=== PATIENT | female | born 1950 | race African-American/Black ===

== ENCOUNTER 2017-12-01 13:48 | Inpatient (IN) | payer MEDICARE, OTHER ==
[~2017-12-01] VITALS: Ht 157.5 cm; Wt 68.0 kg
[~2017-12-01 13:48] MED LIST: ACET-868 PO; AMLO10TA4 PO; ERGO500014 PO; HYDR-4076 PO; LORA0.5T PO; MAG30ORA PO; MAGN400O6 PO; MELA3TAB PO; NA P133E RC; OLAN7.5T3 PO; VALP250C PO
--- NOTE | 2017-12-01 13:55 | NUR ---
AAOX2, SENT BY DR WILSON FROM [facility] C/O GENERALIZED WEAKNESS AND WEIGHT LOSS OF 6 LBS IN 1 WEEK. RR IS EVEN AND UNLABORED WITH NAD NOTED. SKIN IS WARM AND DRY. AWAITING MD FOR EVAL.
[2017-12-01] MEDS ORDERED: DOCU-141 PO (14:02)
[2017-12-01] MEDS ORDERED: ESCI5TAB PO (14:02)
[2017-12-01] MEDS ORDERED: BISA10SU8 RC (14:02)
[2017-12-01] MEDS ORDERED: MEMA10TA PO (14:02)
[2017-12-01] MEDS ORDERED: CARV3.122 PO (14:02)
[2017-12-01 14:29] LABS: BASOPHILS # (AUTO) 0.1 /CMM (0.0-0.2); BASOPHILS % (AUTO) 1.3 % (0.0-2.0); EOSINOPHILS % (AUTO) 7.7 % (0.0-6.0); HEMATOCRIT 37 % (33-45); HEMOGLOBIN 11.9 g/dL (11.5-14.8); LYMPHOCYTES # (AUTO) 1.7 /CMM (0.8-4.8); LYMPHOCYTES % (AUTO) 32.2 % (20.0-44.0); MEAN CORPUSCULAR HGB CONC 32 g/dl (31.0-36.0); MEAN CORPUSCULAR VOLUME 69 fL (82-100); MONOCYTES # (AUTO) 0.3 /CMM (0.1-1.30); MONOCYTES % (AUTO) 6.4 % (2.0-12.0); NEUTROPHILS # (AUTO) 2.8 /CMM (1.8-8.9); NEUTROPHILS % (AUTO) 52.4 % (43.0-81.0); PLATELET COUNT (AUTO) 367 /CMM (150-450); RED BLOOD CELL COUNT(AUTO) 5.45 MIL/uL (4.0-5.2); WHITE BLOOD COUNT (AUTO) 5.3 K/uL (4.3-11.0)
[2017-12-01] MEDS ORDERED: IV NS 0.9% 1,000 ML BAG IV ONE (14:30)
[2017-12-01] MEDS ORDERED: HYDROCODONE/APAP 5/325MG 1 EACH TABLET PO PRN (14:30)
[2017-12-01] MEDS ORDERED: ACETAMINOPHEN 325 MG TABLET PO PRN (14:30)
[2017-12-01] MEDS ORDERED: BISACODYL SUPP (10 MG) 10 MG/SUPP.RECT SUPP.RECT RC PRN (14:30)
[2017-12-01] MEDS ORDERED: ONDANSETRON HCL/PF 4 MG/2 ML VIAL IVP PRN (14:30)
[2017-12-01] MEDS ORDERED: MAGNESIUM HYDROXIDE 30 ML UDC PO PRN ×2 (14:30)
[2017-12-01] MEDS ORDERED: NA PHOS,M-B/NA PHOS,DI-BA 1 EA ENEMA RC PRN (14:30)
[2017-12-01] MEDS ORDERED: Z GUARD REMEDY 2 OZ OINT TP PRN (14:30)
[2017-12-01] MEDS ORDERED: MAG HYDROX/AL HYDROX/SIMETH 30 ML UDC PO PRN (14:30)
[2017-12-01 14:42] LABS: CALCIUM, SERUM 9.1 mg/dL (8.5-10.1); CREATININE 0.9 mg/dL (0.6-1.3); POTASSIUM 4.3 mmol/L (3.5-5.1)
[2017-12-01 14:50] LABS: BILIRUBIN,TOTAL 0.2 mg/dL (0.2-1.0); TOTAL PROTEIN, SERUM 7.4 g/dL (6.4-8.2)
--- NOTE | 2017-12-01 15:27 | NUR ---
PT NOTED PULLED OUT HER IV.
--- NOTE | 2017-12-01 15:32 | NUR ---
CALLED NURSE SUP FOR TELE BED
--- NOTE | 2017-12-01 16:53 | NUR ---
RECEIVED REPORT FOR PT. ROSCOE ESPAÑA VIA PHONE. PT. IS GOING TO ROOM 325 BED 2.
--- NOTE | 2017-12-01 16:53 | NUR ---
REPORT GIVEN TO GRAHAM CHEN FOR TELE 325.
[2017-12-01] MEDS ORDERED: OLANZAPINE 5 MG TABLET ONE (17:00)
[2017-12-01] MEDS ORDERED: DOCUSATE SODIUM 100 MG CAPSULE PO SCH (17:00)
[2017-12-01] MEDS ORDERED: OLANZAPINE 5 MG/TAB.RAPDIS SL ONE (17:00)
--- NOTE | 2017-12-01 18:24 | NUR ---
PER RADIOLOGY THEY ARE UNABLE TO DO CT SCAN. AWARE.
--- NOTE | 2017-12-01 18:49 | NUR ---
REVIT DRAFTER RECEIVED PT. IN ROOM 325 BED 2. PT. WAS BROUGHT WITH BILATERAL SOFT WRIST RESTRAINTS DUE TO PT. PULLING OUT LINES, AND IV. PT. IS A&OX1, CONFUSED, DISORIENTED, CAN FOLLOW INSTRUCTIONS. BREATHING IS UNLABORED, AND EVEN ON ROOM AIR SPO2 AT 97%. PT. HAS AN IV ON LEFT HAND. PT. IS WITH A 1:1 SITTER. BED IS IN LOWEST, AND LOCKED POSITION. PT. DENIES PAIN. ALL NEEDS MET. WILL CONTINUE TO ASSESS AND MONITOR.
[2017-12-01] MEDS: DOCUSATE SODIUM 100 MG CAPSULE PO SCH (19:45)
[2017-12-01] MEDS: LORAZEPAM 0.5 MG TABLET PO SCH (19:45)
[2017-12-01] MEDS: MEMANTINE HCL 5 MG TABLET PO SCH (19:46)
[2017-12-01] MEDS: CARVEDILOL 3.125 MG TABLET PO SCH (19:46)
--- NOTE | 2017-12-01 19:48 | NUR ---
RN CLOSING NOTES 1:1 SITTER AT BEDSIDE. PT. IS IN BED A&OX1, CONFUSED, PT. WAS REORIENTED. BREATHING IS UNLABORED, AND EVEN ON ROOM AIR. PT. DENIES PAIN. NO S/S OF ACUTE DISTRESS. PT. HAS BILATERAL SOFT WRIST RESTRAINTS DUE TO PT. RESTLESS AND IS PULLING OUT HER IV. PT. HAS A LEFT HAND IV ACCESS. BED IS IN LOWEST, AND LOCKED POSITION. 2 SIDE RAILS UP. CALL LIGHT WITHIN REACH. WILL ENDORSE REPORT TO RN.
[2017-12-01 20:00] VITALS: BP 149/87
--- NOTE | 2017-12-02 06:47 | NUR ---
MS RN NOTES PT AWAKE. STILL CONFUSED. NOT IN ANY DISTRESS. NO SOB NOTED. NO S/SX OF ANY PAIN OR DISCOMFORT AT THIS TIME. PT PULLED OUT IV-HL. REFUSED TO HAVE IT INSERTED AT THIS TIME. EXPLAINED TO PT IMPORTANCE OF IV-HL IN HER POC BUT PT STILL REFUSED. AM CARE DONE. MONITORED ACCORDINGLY. WITH SITTER AT BEDSIDE. CALL LIGHT WITHIN REACH. BED IN LOWEST POSITION. SR UP X 3 WITH BED ALARM ON FOR SAFETY. WILL ENDORSE TO NEXT SHIFT.
[2017-12-02 07:09] LABS: BASOPHILS % (AUTO) 0.7 % (0.0-2.0); EOSINOPHILS % (AUTO) 5.5 % (0.0-6.0); HEMATOCRIT 35 % (33-45); HEMOGLOBIN 11.1 g/dL (11.5-14.8); LYMPHOCYTES # (AUTO) 1.7 /CMM (0.8-4.8); LYMPHOCYTES % (AUTO) 37.4 % (20.0-44.0); MEAN CORPUSCULAR HGB CONC 32 g/dl (31.0-36.0); MEAN CORPUSCULAR VOLUME 71 fL (82-100); MONOCYTES # (AUTO) 0.4 /CMM (0.1-1.30); MONOCYTES % (AUTO) 9.7 % (2.0-12.0); NEUTROPHILS # (AUTO) 2.1 /CMM (1.8-8.9); NEUTROPHILS % (AUTO) 46.7 % (43.0-81.0); PLATELET COUNT (AUTO) 314 /CMM (150-450); RDW COEFFICIENT OF VARIATION 15.9 (11.5-15.0); RED BLOOD CELL COUNT(AUTO) 4.88 MIL/uL (4.0-5.2); WHITE BLOOD COUNT (AUTO) 4.5 K/uL (4.3-11.0)
[2017-12-02 07:29] LABS: CALCIUM, SERUM 8.4 mg/dL (8.5-10.1); CREATININE 0.9 mg/dL (0.6-1.3); MAGNESIUM 1.9 mg/dL (1.8-2.4); PHOSPHORUS 3.4 mg/dL (2.5-4.9); POTASSIUM 3.6 mmol/L (3.5-5.1)
--- NOTE | 2017-12-02 07:41 | NUR ---
MS RN OPENING NOTES RECEIVED PT LAYING IN BED, SLEEPING COMFORTABLY. SITTER AT BEDSIDE FOR SAFETY REASONS. RESPIRATIONS ARE EVEN AND UNLABORED, NOT IN ANY ACUTE DISTRESS NOTED. NO FACIAL GRIMACING NOTED. SAFETY MEASURES ARE IN PLACE. WILL CONTINUE TO MONITOR THROUGHOUT SHIFT.
[2017-12-02 08:00] VITALS: BP 153/81
--- NOTE | 2017-12-02 08:20 | NUR ---
MS RN NOTES PT SEEN AND EXAMINED BY DR. WILSON AND MADE AWARE OF UNSUCCESSFUL IV INSERTION D/T PT CONSISTENTLY TRYING TO PULL OUT IV. WILL ENCOURAGE FLUIDS TOLERATED.
[2017-12-02 08:41] LABS: EOSINOPHILS % (MANUAL) 4 % (0-4); LYMPHOCYTES % (MANUAL) 39 % (16-48); MONOCYTES % (MANUAL) 9 % (0-11.0); NEUTROPHILS % (MANUAL) 48 (42-76)
[2017-12-02] MEDS: ESCITALOPRAM OXALATE (10 MG) 10 MG TABLET PO SCH (08:50)
[2017-12-02] MEDS: LORAZEPAM 0.5 MG TABLET PO SCH ×2 (08:50→17:19)
[2017-12-02] MEDS: MEMANTINE HCL 5 MG TABLET PO SCH ×2 (08:50→17:19)
[2017-12-02] MEDS: AMLODIPINE BESYLATE 10 MG TABLET PO SCH (08:51)
[2017-12-02] MEDS: CARVEDILOL 3.125 MG TABLET PO SCH ×2 (08:51→17:18)
--- NOTE | 2017-12-02 09:03 | NUR ---
MS RN NOTES ATTEMPTED TO INSERT IV X2. PT CANNOT KEEP STILL AND CONSISTENTLY TRIES TO GET OUT OF BED, PT IS NOT COOPERATIVE AT THIS TIME. DR. WILSON MADE AWARE OF NO IV ACCESS. PER DR. WILSON, "CONTINUE TO HAVE PT DRINK FLUIDS TOLERATED."
[2017-12-02 11:00] VITALS: BP 117/69
--- NOTE | 2017-12-02 11:30 | NUR ---
MS RN NOTES PT SEEN AND EXAMINED BY DR. POSADA.
--- NOTE | 2017-12-02 13:03 | NUR ---
MS RN NOTES ATTEMPTED TO INSERT IV, PT CONTINUES TO RANDOMLY GET OUT OF BED AND UNABLE TO KEEP ARM STEADY. WILL CONTINUE TO KEEP TRYING.
--- NOTE | 2017-12-02 13:58 | NUR ---
MS RN NOTES CALLED SON ZULLY ESPAÑA FOR CONSENT FOR EGD PT CANNOT SIGN D/T CONFUSION. RECEIVED CONSENT OVER THE PHONE WITH TWO RN WITNESSES. CONSENTS SIGNED AND PLACE IN CHART.
[2017-12-02 17:00] VITALS: BP 120/68
[2017-12-02] MEDS: DOCUSATE SODIUM 100 MG CAPSULE PO SCH (17:19)
--- NOTE | 2017-12-02 17:19 | NUR ---
MS RN NOTES TRIED TO INSERT A PERIPHERAL IV, PT PICKS AT THE IV SUPPLIES WHICH CAN CAUSE HARM TO BOTH THE PT AND NURSE. PT CONTINUES TO BE NONCOOPERATIVE. ENCOURAGED PT TO DRINK FLUIDS TOLERATED TO STAY HYDRATED. WILL CONTINUE TO MONITOR.
[2017-12-02 17:47] LABS: APPEARANCE,URINE CLEAR (CLEAR); BILIRUBIN,URINE NEGATIVE (NEGATIVE); BLOOD, URINE NEGATIVE Ery/uL (NEGATIVE); COLOR,URINE YELLOW (YELLOW); KETONES,URINE NEGATIVE (NEGATIVE); LEUKOCYTE ESTERASE ,URINE 2+ (NEGATIVE); NITRITE, URINE NEGATIVE (NEGATIVE); PROTEIN,URINE NEGATIVE (NEGATIVE); UGLUCOSE NEGATIVE (NEGATIVE); UROBILINOGEN,URINE 0.2 EU/dL (0.2)
[2017-12-02 18:33] LABS: BACTERIA,URINE 2+ /HPF (None Seen); SQUAMOUS EPITHELIAL CELL,UR 0-2 /HPF (None Seen)
--- NOTE | 2017-12-02 18:40 | NUR ---
MS RN NOTES ATTEMPTED TO INSERT IV. PT CONTINUES TO BE NONCOMPLIANT. REMINDED SITTER TO ENCOURAGE FLUIDS TOLERATED.
--- NOTE | 2017-12-02 18:41 | NUR ---
MS RN CLOSING NOTES ALL DUE MEDS GIVEN. NEEDS MET AND RENDERED. PT IS CONFUSED AND CONTINUES TO BE NONCOMPLIANT WITH INSERTION OF IV. RESPIRATIONS ARE EVEN AND UNLABORED, NOT IN ANY ACUTE DISTRESS NOTED. PT IS ABLE TO AMBULATE WITH SUPERVISION. NO FACIAL GRIMACING OR MOANING NOTED. SITTER AT BEDSIDE FOR SAFETY. SAFETY MEASURES ARE IN PLACE. WILL ENDORSE TO NEXT SHIFT FOR CONTINUITY OF CARE.
--- NOTE | 2017-12-02 19:10 | NUR ---
MS/RN OPENING NOTES PT RECEIVED AWAKE, HOB ELEVATED. SITTER AT BEDSIDE. A/OX1. ON ROOM AIR, BREATHING EVEN AND UNLABORED. NO S/S OF SOB, PAIN OR DISTRESS. NO FACIAL GRIMACING, PT APPEARS COMFORTABLE. DOES NOT ANSWER QUESTIONS, PT NONVERBAL AT THIS TIME. NO IV ACCESS AT THIS TIME. DAY MD AWARE, ASK SITTER TO ENCOURAGE PO FLUIDS UNTIL IV IS REINSERTED. WILL TRY TO INSERT DURING SHIFT. NPO POST MIDNIGHT FOR EGD. CONSENTS SIGNED AND IN THE CHART. BED IN LOW/LOCKED POSITION WITH CALL LIGHT IN REACH. SIDE RAILS UPX3 AND BED ALARM ON FOR SAFETY. WILL CONTINUE TO MONITOR
[2017-12-02 20:00] VITALS: BP 135/78
[2017-12-02 20:55] VITALS: BP 135/78
--- NOTE | 2017-12-02 23:24 | NUR ---
MS/RN NOTES IV INSERTED ON 2ND ATTEMPT WITH ASSISTANCE OF SITTER. IV TO LEFT WRIST #22 PATENT AND INTACT WITH GOOD BLOOD RETURN. SECURED AND WRAPPED WITH KERLIX AND COVERED WITH SLEEVE. IVF INFUSING ORDERED.
--- NOTE | 2017-12-03 06:49 | NUR ---
MS/RN CLOSING NOTES PT RESTING IN BED. A/OX1, CONFUSED. ON ROOM AIR, BREATHING EVEN AND UNLABORED. NO S/S OF DISTRESS, NO SOB OR PAIN NOTED. RESTING COMFORTABLY IN BED. IV TO LEFT WRIST PATENT AND INTACT RUNNING IVF ORDERED. WRAPPED WITH KERLIX AND COVERED WITH SLEEVE. PT FOR EGD WITH DR. POSADA. CONSENTS SIGNED AND IN THE CHART. BED IN LOW/LOCKED POSITION WITH CALL LIGHT IN REACH. SIDE RAILS UPX3 WITH BED ALARM ON FOR SAFETY. WILL ENDORSE TO DAY SHIFT RN DONG.
--- NOTE | 2017-12-03 08:02 | NUR ---
MS RN OPENING NOTE PATIENT IS ALERT AND ORIENTED x1. SITTER AT BEDSIDE FOR SAFETY. NO FACIAL GRIMACING NOTED FOR PAIN. NO SOB OR DISTRESS NOTED. CALL LIGHT WITHIN REACH AND SAFETY MEASURES IMPLEMENTED. IV ON LEFT WRIST INTACT AND PATENT WITH IV FLUIDS RUNNING AT 75 ML/HR. NPO EXCEPT MEDS AT THIS TIME FOR EGD AND ULTRASOUND OF THE LIVER. CONSENTS OBTAINED AND PLACED IN CHART. WILL HAVE CONSULTS TODAY. WILL CONTINUE TO MONITOR THROUGHOUT SHIFT
[2017-12-03 08:52] LABS: BASOPHILS % (AUTO) 0.7 % (0.0-2.0); HEMATOCRIT 36 % (33-45); HEMOGLOBIN 11.3 g/dL (11.5-14.8); LYMPHOCYTES # (AUTO) 2.2 /CMM (0.8-4.8); LYMPHOCYTES % (AUTO) 50.5 % (20.0-44.0); MEAN CORPUSCULAR HGB CONC 31 g/dl (31.0-36.0); MEAN CORPUSCULAR VOLUME 72 fL (82-100); MONOCYTES # (AUTO) 0.4 /CMM (0.1-1.30); MONOCYTES % (AUTO) 10.1 % (2.0-12.0); NEUTROPHILS # (AUTO) 1.4 /CMM (1.8-8.9); NEUTROPHILS % (AUTO) 31.7 % (43.0-81.0); PLATELET COUNT (AUTO) 330 /CMM (150-450); RDW COEFFICIENT OF VARIATION 16.6 (11.5-15.0); RED BLOOD CELL COUNT(AUTO) 4.99 MIL/uL (4.0-5.2); WHITE BLOOD COUNT (AUTO) 4.4 K/uL (4.3-11.0)
[2017-12-03] MEDS: CARVEDILOL 3.125 MG TABLET PO SCH ×2 (09:00→17:04)
[2017-12-03] MEDS: AMLODIPINE BESYLATE 10 MG TABLET PO SCH (09:00)
[2017-12-03] MEDS: MEMANTINE HCL 5 MG TABLET PO SCH ×2 (09:00→17:03)
[2017-12-03] MEDS: ESCITALOPRAM OXALATE (10 MG) 10 MG TABLET PO SCH (09:00)
[2017-12-03 09:23] LABS: CALCIUM, SERUM 8.2 mg/dL (8.5-10.1); POTASSIUM 3.9 mmol/L (3.5-5.1)
[2017-12-03] MEDS: LORAZEPAM 0.5 MG TABLET PO SCH ×2 (09:47→17:03)
--- NOTE | 2017-12-03 10:00 | NUR ---
MS RN NOTE ATIVAN 0.25MG PO GIVEN PRIOR TO CT HEAD WITHOUT CONTRAST. CT TAKING PATIENT DOWN TO DO SCAN.
--- NOTE | 2017-12-03 10:34 | NUR ---
MS RN NOTE PATIENT NOW HEADING DOWN TO OR FOR EGD PROCEDURE WILL RESUME CARE WHEN PATIENT RETURNS TO UNIT
[2017-12-03 10:45] VITALS: BP 151/75
--- NOTE | 2017-12-03 11:45 | NUR ---
MS RN NOTE PATIENT BACK FROM EGD PROCEDURE. PATIENT IN STABLE CONDITION. ALERT AND ORIENTED x1. CURRENTLY ON 2L/MIN OFO OXYGEN VIA NASAL CANNULA. WILL MONITOR THROUGHOUT SHIFT
--- NOTE | 2017-12-03 12:00 | NUR ---
MS RN NOTE RECEIVED ORDER FROM DR. WILSON FOR RESTRAINTS. PATIENT PULLING ON MULTIPLE IV LINES, REMOVING OXYGEN LINES, BECOMING COMBATIVE. ORDER FOR ACUTE MEDICAL RESTRAINT NOTED AND CARRIED OUT. WILL CHECK Q15 MIN AND OFFER NURSING NEEDS.
--- NOTE | 2017-12-03 12:32 | NUR ---
MS CEHN NOTE PATIENT PUT ON SIMPLE MASK-5L DUE TO OXYGENATION LEVELS DROPPING BELOW 89%. WILL CONTINUE TO MONITOR Addendum: 12/03/17 at 1243 by MICHELE PARSONS RN PATIENT'S O2 SATURATION NOW AT 92% ON 5L/MIN VIA SIMPLE MASK
--- NOTE | 2017-12-03 13:00 | NUR ---
MS RN NOTE PATIENTS O2 SAT AT 96% ON 5L/MIN VIA SIMPLE MASK. WILL CONTINUE TO MONITOR
--- NOTE | 2017-12-03 15:54 | NUR ---
MS RN NOTE INFORMED MD ABOUT PATIENTS ELEVATED TEMPERATURE, COOLING MEASURES IN PLACE AND ICE PACKS IN PLACE. PATIENT RECEIVING IV FLUIDS AT THIS TIME. NO NEW ORDERS RECEIVED AT THIS TIME
[2017-12-03 16:00] VITALS: BP 157/73
[2017-12-03] MEDS: DOCUSATE SODIUM 100 MG CAPSULE PO SCH (17:03)
[2017-12-03] MEDS: ACETAMINOPHEN 325 MG TABLET PO PRN (17:47)
--- NOTE | 2017-12-03 17:50 | NUR ---
MS RN NOTE WILDLIFE REHABILITATOR INFORMED ME THAT PATIENT HAD TEMPERATURE OF 102. COOLING MEASURES STARTED, ICE PACKS GIVEN WILL INFORM MD.
--- NOTE | 2017-12-03 17:53 | NUR ---
MS RN NOTE PATIENT ON ROOM AIR TOLERATING WELL AT 96%. WILL CONTINUE TO MONITOR
--- NOTE | 2017-12-03 18:15 | NUR ---
MS RN NOTE MD ORDER FOR BLOOD CULTURES TO BE TAKEN. ORDERS NOTED AND CARRIED OUT.
--- NOTE | 2017-12-03 18:47 | NUR ---
MS RN NOTE TEMPERATURE RECHECKED RECTALLY-102. WILL CONTINUE CARE AND INFORM
--- NOTE | 2017-12-03 18:51 | NUR ---
MS RN CLOSING NOTE PATIENT IS RESTING IN BED AT THIS TIME. ALERT AND ORIENTED X1, CONFUSED. CALL LIGHT WITHIN REACH. SAFETY MEASURES IMPLEMENTED. ALL DUE MEDICATIONS GIVEN ORDERED. ALL NURSING CARE NEEDS ATTENDED TO NEEDED. IV INTACT AND PATENT WITH IV FLUIDS RUNNING AT THIS TIME. PATIENT CURRENTLY HAS TEMPERATURE OF 102; COOLING MEASURES IMPLEMENTED, ICE PACKS GIVEN, TYLENOL GIVEN, MD AWARE. BLOOD CULTURE TO BE DRAWN. LABS TO BE DRAWN IN AM. ON ROOM AIR WITH O2 SATURATION OF 97% TOLERATING WELL. WILL ENDORSE TO REPROGRAPHICS ASSOCIATE NURSE FOR DONG
[2017-12-03] MEDS: IV NS 0.9% 1,000 ML IV PRN (18:57)
--- NOTE | 2017-12-03 19:30 | NUR ---
MS RN OPENING NOTE Patient was seen lying in bed AAOx1 only, breathing on RA with no SOB, and no acute distress. Patient had a previous temperature of 102 F last shift; current temperature is 97.9 F. SL 20g IV is in the right AC and 22g in the left FA. Patient currently has bilateral soft wrist restraints to prevent pulling at lines; peripheral pulses are +2, capillary refill < 3 seconds. Sitter is at the bedside. Bed is in the low/locked position, three side rails up, and call wan within reach. Patient has no immediate needs at this time. Will continue to monitor.
[2017-12-03 20:00] VITALS: BP_SYST 123; BP_SYST 161; BP_DIAS 59; BP_DIAS 82
[2017-12-03] MEDS: ZOLPIDEM TARTRATE 5 MG TABLET PO PRN (21:52)
--- NOTE | 2017-12-03 21:52 | NUR ---
MS APRIL NOTE - Sony Patient was seen getting out of bed; she had managed to undue the restraints by herself. Patient no longer has sitter at bedside because another patient with sitter needs had to be moved to a separate room for contact isolation. Patient was helped to the bathroom, made comfortable back in bed, and restraints were put on once more. Patient attempted to pull at IV lines without restraints on; patient also appeared restless and anxious in bed. I asked the patient if she would like a medication to help her sleep, and she said yes. 5mg PO Ambien given as ordered prn to aid with sleep. Will continue to monitor. Addendum: 12/03/17 at 2204 by DEISI HAQUE RN Upon giving the patient the medication, the patient spitted out the pill and stated that she changed her mind and did not want to take the medication. The pill was discarded in the medication bin in locked medication room.
--- NOTE | 2017-12-04 04:00 | NUR ---
MS RN NOTE - IVs pulled out Upon checking on patient, I found both wrist restraints off and both IV lines pulled completely out. Patient was found sleeping in bed. I assessed the previous IV sites; no bleeding was noted. IV fluids (NS at 75ml/hr) is temporarily on hold until a new IV line can be inserted.
--- NOTE | 2017-12-04 05:15 | NUR ---
MS RN NOTE - New IV New IV line was inserted in the left forearm. Blood return noted, flushed, and patent. NS at 75ml/hr is running through IV with no issues. Bilateral soft wrist restraints have been reapplied. Patient is currently calm in bed.
--- NOTE | 2017-12-04 07:03 | NUR ---
MS RN CLOSING NOTE Patient is in bed AAOx1, breathing on RA with no SOB, and no signs of acute distress. Patient remained stable overnight with normal vital signs and no fever. Patient slept poorly overnight, was restless, and pulled out two IV lines (see previous notes). Bilateral wrist restraints remain on; peripheral pulses +2, capillary refill < 3 seconds. NS at 75ml/hr is running through the left FA 22g. Bed is in the low/locked position, two side rails up, and call wan within reach. Patient care endorsed to day shift RN.
[2017-12-04 07:26] LABS: BASOPHILS % (AUTO) 0.1 % (0.0-2.0); EOSINOPHILS % (AUTO) 0.6 % (0.0-6.0); HEMATOCRIT 36 % (33-45); HEMOGLOBIN 11.4 g/dL (11.5-14.8); LYMPHOCYTES # (AUTO) 1.4 /CMM (0.8-4.8); LYMPHOCYTES % (AUTO) 8.8 % (20.0-44.0); MEAN CORPUSCULAR HGB CONC 32 g/dl (31.0-36.0); MEAN CORPUSCULAR VOLUME 72 fL (82-100); MONOCYTES # (AUTO) 0.4 /CMM (0.1-1.30); MONOCYTES % (AUTO) 2.4 % (2.0-12.0); NEUTROPHILS # (AUTO) 14.4 /CMM (1.8-8.9); NEUTROPHILS % (AUTO) 88.1 % (43.0-81.0); PLATELET COUNT (AUTO) 303 /CMM (150-450); RED BLOOD CELL COUNT(AUTO) 4.99 MIL/uL (4.0-5.2); WHITE BLOOD COUNT (AUTO) 16.3 K/uL (4.3-11.0)
--- NOTE | 2017-12-04 07:30 | NUR ---
MS RN NOTES RELEASED AND REPOSITIONED SAROJ WRIST RESTRAINTS FOR CIRCULATION. SITTER REMAINS AT BEDSIDE. PT ALERT TO SELF ONLY WITH CONFUSION AND DISORIENTATION TO TIME, PLACE, AND SITUATION. REALITY ORIENTATION PROVIDED PRN.
[2017-12-04 07:39] LABS: CALCIUM, SERUM 8.6 mg/dL (8.5-10.1); CREATININE 0.9 mg/dL (0.6-1.3); POTASSIUM 3.6 mmol/L (3.5-5.1)
[2017-12-04 08:21] VITALS: BP 154/78
[2017-12-04] MEDS: MEMANTINE HCL 5 MG TABLET PO SCH ×2 (09:04→16:58)
[2017-12-04] MEDS: LORAZEPAM 0.5 MG TABLET PO SCH (09:05)
[2017-12-04] MEDS: ESCITALOPRAM OXALATE (10 MG) 10 MG TABLET PO SCH (09:05)
[2017-12-04] MEDS: AMLODIPINE BESYLATE 10 MG TABLET PO SCH (09:06)
[2017-12-04] MEDS: CARVEDILOL 3.125 MG TABLET PO SCH ×2 (09:06→17:00)
--- NOTE | 2017-12-04 09:13 | NUR ---
MS RN NOTES PATIENT IS AWAKE, SPEECH CLEAR, A/O X1. BREAKFAST IS SERVED WITH FAIR APPETITE. BREATHING ON ROOM AIR WITH NO SOB. IVC IN LFA PATENT AND INTACT, IVF NS INFUSING AT 75ML/HR. PER REPORT PATIENT IS PULLING OUT IV LINE, BILATERAL SOFT WRIST RESTRAINT IN PLACE, CIRCULATION IN BOTH HAND INTACT, ABLE TO MOVE WITHOUT DIFFICULTY. SEVERO LIGHT WITHIN REACH, 1:1 SITTER AT THE BEDSIDE.
--- NOTE | 2017-12-04 09:30 | NUR ---
MS RN NOTES RELEASED AND REPOSITIONED SAROJ WRIST RESTRAINTS FOR CIRCULATION. SITTER REMAINS AT BEDSIDE.
[2017-12-04] MEDS: IV NS 0.9% 1,000 ML IV PRN (09:32)
[2017-12-04 09:42] LABS: BAND % (MANUAL) 1 % (0.0-5.0); LYMPHOCYTES % (MANUAL) 10 % (16-48); MONOCYTES % (MANUAL) 4 % (0-11.0); NEUTROPHILS % (MANUAL) 85 (42-76)
--- NOTE | 2017-12-04 11:30 | NUR ---
MS RN NOTES PT GETTING RESTLESS, ATTEMPTING TO CLIMB OUT OF BED. SAROJ WRIST RESTRAINT REMOVED AND TAKEN TO BATHROOM. PT VOIDED AND HAD A BOWEL MOVEMENT. PT RESISTIVE TO CARE. PT WANTS TO DO OWN PERICARE, BUT NOTED PLAYING WITH HER STOOL. KEPT CLEAN AND DRY. REALITY ORIENTATION PROVIDED PRN. ASSISTED BACK TO BED AND SAROJ WRIST RESTRAINT REAPPLIED. WILL CONTINUE TO MONITOR.
--- NOTE | 2017-12-04 12:40 | NUR ---
MS RN NOTES: MD VISIT KVNG (RAMP ATTENDANT) AT BEDSIDE AT THIS TIME. PT FOR PSYCH AND NEUROLOGY CONSULT STATED.
--- NOTE | 2017-12-04 13:30 | NUR ---
MS RN NOTES RELEASED SAROJ WRIST RESTRAINTS AND TAKEN TO BATHROOM, PT VOIDED AND HAD A SMALL BOWEL MOVEMENT. PT ATTEMPTED TO WIPE SELF, BUT PT IS UNABLE TO TAKE CARE SELF. PERICARE RENDERED. REALITY ORIENTATION PROVIDED PRN. ASSISTED BACK TO BED, REAPPLIED SAROJ WRIST RESTRAINTS.
[2017-12-04] MEDS: LEVOFLOXACIN 250 MG /D5W 50 ML 250 MG in PREMIX 1 EA IV SCH (14:23)
[2017-12-04] MEDS ORDERED: ERGOCALCIFEROL (VITAMIN D 2) 50,000 UNIT CAPSULE PO SCH (14:30)
--- NOTE | 2017-12-04 15:10 | NUR ---
MS RN NOTES: NEURO CONSULT DR. VILLAGRAN AT BEDSIDE AT THIS TIME. PT REMAINS CONFUSED AND RESTLESS.
[2017-12-04] MEDS: LORAZEPAM INJ 2 MG/ML VIAL IV PRN (15:13)
--- NOTE | 2017-12-04 15:13 | NUR ---
PATIENT APPEARS RESTLESS AND SCREAMING LOUD, UNABLE TO CONTROL BEHAVIOR, DENIES PAIN. ATIVAN 0.25MG IV PRN GIVEN, WILL REASSESS. 1:1 SITTER AT THE BEDSIDE.
--- NOTE | 2017-12-04 15:30 | NUR ---
MS RN NOTES PT REMAINS CONFUSED AND DISORIENTED TO TIME, PLACE, AND SITUATION. PT STILL RESTLESS. RELEASED AND REPOSITIONED SAROJ WRIST RESTRAINTS. REALITY ORIENTATION PROVIDED PRN. WILL CONTINUE TO MONITOR.
--- NOTE | 2017-12-04 15:54 | NUR ---
MS CALL TAKER NOTES F/U MADE TO [facility] RE: PNEUMOCOCCAL VACCINATION, SPOKE TO ANJUM (NURSE) AND INFORMED ME THAT SHE RECEIVED VACCINATION ON 03/07/16.
[2017-12-04 16:28] VITALS: BP 144/83
[2017-12-04] MEDS: ACETAMINOPHEN 325 MG TABLET PO PRN (17:01)
[2017-12-04] MEDS: DOCUSATE SODIUM 100 MG CAPSULE PO SCH (17:02)
--- NOTE | 2017-12-04 17:02 | NUR ---
COLACE NOT GIVEN, PATIENT HAD BOWEL MOVEMENT TODAY X2 SOFT AND MODERATE AMT. BROWN COLOR.
--- NOTE | 2017-12-04 18:08 | NUR ---
MS RN NOTES ASSISTED TO BATHROOM AND VOIDED. KEPT CLEAN AND DRY. GOWN CHANGE AND ASSISTED BACK TO BED. PT REMAINS CONFUSED AND DISORIENTED TO TIME, PLACE, AND SITUATION. REALITY ORIENTATION PROVIDED PRN. NEEDS ATTENDED. NO DISTRESS NOTED. RE APPLIED SAROJ WRIST RESTRAINT. WILL CONTINUE TO MONITOR.
--- NOTE | 2017-12-04 18:56 | NUR ---
MS RN CLOSING NOTES PATIENT IS UNCOOPERATIVE, EPISODE OF SPITTING OUT MEDICATION, ATTEMPTING TO REMOVE IV LINE TUBING MULTIPLE TIMES. CONFUSED, REORIENTED FREQUENTLY. BILATERAL SOFT WRIST RESTRAINT IN PLACE, MONITORED FOR SKIN/CIRCULATION EVERY 2 HOURS, INTACT. WBC ELEVATED TODAY, TACK DRILLER TANYA IS AWARE, REPEAT BLOOD CULTURE ORDERED. AFEBRILE DURING THE SHIFT. URINE SPECIMEN COLLECTED AND SEND TO LAB ORDERED. FOR PSYCHE CONSULT. CALL LIGHT WITHIN REACH, WILL ENDORSE TO ONCOMING RN.
--- NOTE | 2017-12-04 19:35 | NUR ---
MS RN OPENING NOTE Patient was see lying in bed AAOx3, breathing on RA with no SOB, and no signs of acute distress. Bilateral soft wrist restraints are in place. Patient exhibits good circulation, peripheral pulses +2, and capillary refill < 3 seconds. NS at 75ml/hr is running through the left FA; IV site is clean, dry, and intact; covered with an arm sleeve to prevent patient from pulling at lines. Bed is in the low/locked position, two side rails up, and call wan within reach. Sitter remains at bedside, and patient is currently calm; no immediate needs identified. Will continue to monitor.
[2017-12-04 20:00] VITALS: BP 137/82
[2017-12-04] MEDS ORDERED: CEPHALEXIN MONOHYDRATE 500 MG CAPSULE PO SCH (21:00)
[2017-12-04] MEDS: ZOLPIDEM TARTRATE 5 MG TABLET PO PRN (23:14)
--- NOTE | 2017-12-04 23:15 | NUR ---
MS RN NOTE - Ambien Patient is restless, is pulling at restraints, and attempts to get out of bed despite having a bedside sitter and providing additional support and using distraction like music and TV. We also turned off lights, turned off TV, and decreased noise level to help with sleep, but measures were unsuccessful. PO Ambien 5mg was administered as ordered prn. Will continue to monitor.
[2017-12-05] MEDS: LORAZEPAM INJ 2 MG/ML VIAL IV PRN (04:06)
--- NOTE | 2017-12-05 04:06 | NUR ---
MS RN NOTE - Ativan Patient is trying to pull at restraints and IV line; patient is restless, fidgety, and has not slept. IV Ativan 0.25 mg given as ordered PRN.
[2017-12-05] MEDS: IV NS 0.9% 1,000 ML IV PRN (04:23)
[2017-12-05 06:43] LABS: HEMATOCRIT 34 % (33-45); HEMOGLOBIN 10.8 g/dL (11.5-14.8); MEAN CORPUSCULAR HGB CONC 32 g/dl (31.0-36.0); MEAN CORPUSCULAR VOLUME 71 fL (82-100); PLATELET COUNT (AUTO) 292 /CMM (150-450); RDW COEFFICIENT OF VARIATION 16.1 (11.5-15.0); RED BLOOD CELL COUNT(AUTO) 4.76 MIL/uL (4.0-5.2); WHITE BLOOD COUNT (AUTO) 7.2 K/uL (4.3-11.0)
--- NOTE | 2017-12-05 06:48 | NUR ---
MS RN CLOSING NOTE Patient was seen in bed AAOx1 only, remains very confused and uncooperative. Patient is breathing on RA with no SOB and no signs of acute distress. Patient slept poorly overnight but had no events. Bilateral soft wrist retraints remain on; circulation is good, peripheral pulses +2, capillary refill < 3 seconds. NS at 75ml/hr is running through the left FA IV, which is covered with an arm sleeve to prevent the patient from pulling at lines. Sitter is at bedside. Bed is in the low/locked position, three side rails up, and call wan within reach. Patient care endorsed to day shift RN.
[2017-12-05 06:58] LABS: CALCIUM, SERUM 8.4 mg/dL (8.5-10.1); CREATININE 0.9 mg/dL (0.6-1.3); MAGNESIUM 1.9 mg/dL (1.8-2.4); POTASSIUM 3.3 mmol/L (3.5-5.1)
--- NOTE | 2017-12-05 07:20 | NUR ---
RN OPENING NOTES PATIENT RECEIVED IN BED SLEEPING, EASILY AROUSABLE DURING CARE, RESPIRATIONS EVEN AND UNLABORED, DENIES ANY PAIN OR DISCOMFORT AT THIS TIME.PT CONFUSED, ABLE TO MAKE NEEDS KNOWN. IV ACCESS PATENT AND INTACT NO REDNESS OR INFILTRATION NOTED.PT CONFUSED, SITTER AT BEDSIDE, SAFETY MEASURES IN PLACE, KEPT CLEAN AND DRY, CALL LIGHT WITHIN EASY REACH WILL CONTINUE TO MONITOR
[2017-12-05 08:00] VITALS: BP 146/82
[2017-12-05 08:29] LABS: EOSINOPHILS % (MANUAL) 1 % (0-4); LYMPHOCYTES % (MANUAL) 19 % (16-48); MONOCYTES % (MANUAL) 7 % (0-11.0); NEUTROPHILS % (MANUAL) 73 (42-76)
[2017-12-05] MEDS: AMLODIPINE BESYLATE 10 MG TABLET PO SCH (09:24)
[2017-12-05] MEDS: ESCITALOPRAM OXALATE (10 MG) 10 MG TABLET PO SCH (09:24)
[2017-12-05] MEDS: CARVEDILOL 3.125 MG TABLET PO SCH ×2 (09:25→17:21)
[2017-12-05] MEDS: MEMANTINE HCL 5 MG TABLET PO SCH ×2 (09:25→17:21)
[2017-12-05] MEDS ORDERED: POTASSIUM CHLORIDE 20 MEQ TAB.PRT.SR PO SCH (10:00)
[2017-12-05] MEDS: LEVOFLOXACIN 250 MG /D5W 50 ML 250 MG in PREMIX 1 EA IV SCH (14:56)
--- NOTE | 2017-12-05 16:10 | NUR ---
RN NOTES CONTACTED PSYCH UNIT TO CONFIRM RECEIVED CONSULT REQUEST PER PSYCH, DR. KUMAR TO SEE PT CALLED DR. KUMAR AND LEFT MESSAGE, WILL CONTINUE TO FOLLOW UP
[2017-12-05] MEDS: DOCUSATE SODIUM 100 MG CAPSULE PO SCH (17:21)
--- NOTE | 2017-12-05 19:35 | NUR ---
MS RN OPENING NOTE RECEIVED PATIENT IN BED, SLEEPING, EASILY AROUSED WITH VERBAL AND PHYSICAL STIMULI, ORIENTED X1. IN NO APPARENT DISTRESS OR DISCOMFORT AT THIS TIME. RESPIRATIONS EVEN AND UNLABORED. DENIES PAIN. PATIENT WITH LFA IVC 22G WITH NS RUNNING AT 75ML/HR. PATIENT IS CONTINENT WITH USES DIAPER CURRENTLY D/T BEING INCONTINENT WHILE CONFUSED AND LETHARGIC. PATIENT WITH BILATERAL SOFT WRIST RESTRAINTS PER MD ORDER SHE REMOVED SEVERAL IV LINES. WILL MONITOR BEHAVIOR, CIRCULATION IN EXTREMITIES AND RELEASE THE RESTRAINTS PER PROTOCOL. PATIENT TO BE EVALUATED BY PSYCHIATRIST DR. KUMAR. PATIENT KEPT CLEAN AND COMFORTABLE. SAFETY MEASURES IN PLACE, SITTER AT BEDSIDE, BED IN LOW LOCKED POSITION, SIDE RAILS UP X2, CALL LIGHT WITHIN EASY REACH. WILL CONTINUE TO MONITOR.
--- NOTE | 2017-12-05 19:52 | NUR ---
RN CLSINGG NOTES PATIENT RECEIVED IN BED SLEEPING, EASILY AROUSABLE DURING CARE, RESPIRATIONS EVEN AND UNLABORED, DENIES ANY PAIN OR DISCOMFORT AT THIS TIME.PT CONFUSED, ABLE TO MAKE NEEDS KNOWN. IV ACCESS PATENT AND INTACT NO REDNESS OR INFILTRATION NOTED.PT CONFUSED, SITTER AT BEDSIDE, SAFETY MEASURES IN PLACE, KEPT CLEAN AND DRY, CALL LIGHT WITHIN EASY REACH WILL CONTINUE TO MONITOR Addendum: 12/05/17 at 3 by ELVIS ALVARADO RN RN CLOSING NOTES PATIENT IN BED SLEEPING, EASILY AROUSABLE DURING CARE, RESPIRATIONS EVEN AND UNLABORED, DENIES ANY PAIN OR DISCOMFORT AT THIS TIME.PT CONFUSED, ABLE TO MAKE NEEDS KNOWN. IV ACCESS PATENT AND INTACT NO REDNESS OR INFILTRATION NOTED.PT CONFUSED, SITTER AT BEDSIDE, SAFETY MEASURES IN PLACE, KEPT CLEAN AND DRY, CALL LIGHT WITHIN EASY REACH ENDORSED TO NEXT SHIFT FOR CONTINUITY OF CARE
[2017-12-05 20:00] VITALS: BP 150/84
[2017-12-05] MEDS: HALOPERIDOL 1 MG TABLET PO SCH (21:21)
[2017-12-05] MEDS ORDERED: MIRTAZAPINE 15 MG TABLET PO SCH (22:00)
[2017-12-06] MEDS: IV NS 0.9% 1,000 ML IV PRN (04:03)
--- NOTE | 2017-12-06 06:23 | NUR ---
MS RN CLOSING NOTE PATIENT IN BED, SLEEPING, EASILY AROUSED WITH VERBAL AND PHYSICAL STIMULI, ORIENTED X1. IN NO APPARENT DISTRESS OR DISCOMFORT AT THIS TIME. RESPIRATIONS EVEN AND UNLABORED. DENIES PAIN. PATIENT WITH LFA IVC 22G WITH NS RUNNING AT 75ML/HR. PATIENT IS CONTINENT BUT USES DIAPER CURRENTLY D/T BEING INCONTINENT WHILE CONFUSED AND LETHARGIC. PATIENT WITH BILATERAL SOFT WRIST RESTRAINTS PER MD ORDER SHE REMOVED SEVERAL IV LINES AND REACHES TO DO SO AGAIN EVERY TIME THE RESTRAINTS ARE RELEASED. REMOVED AND REASSESSED PER PROTOCOL. GOOD CIRCULATION IN BOTH EXTREMITIES. SITTER OBSERVED AT BEDSIDE. PATIENT KEPT CLEAN AND COMFORTABLE. SAFETY MEASURES IN PLACE, BED IN LOW LOCKED POSITION, SIDE RAILS UP X3, CALL LIGHT WITHIN EASY REACH. WILL ENDORSE TO AM NURSE FOR DONG.
[2017-12-06 06:52] LABS: BASOPHILS % (AUTO) 0.1 % (0.0-2.0); EOSINOPHILS % (AUTO) 7.6 % (0.0-6.0); HEMATOCRIT 36 % (33-45); HEMOGLOBIN 11.4 g/dL (11.5-14.8); LYMPHOCYTES # (AUTO) 1.8 /CMM (0.8-4.8); LYMPHOCYTES % (AUTO) 35.5 % (20.0-44.0); MEAN CORPUSCULAR HGB CONC 32 g/dl (31.0-36.0); MEAN CORPUSCULAR VOLUME 72 fL (82-100); MONOCYTES # (AUTO) 0.4 /CMM (0.1-1.30); MONOCYTES % (AUTO) 7.5 % (2.0-12.0); NEUTROPHILS # (AUTO) 2.5 /CMM (1.8-8.9); NEUTROPHILS % (AUTO) 49.3 % (43.0-81.0); PLATELET COUNT (AUTO) 322 /CMM (150-450); RDW COEFFICIENT OF VARIATION 16.1 (11.5-15.0); RED BLOOD CELL COUNT(AUTO) 4.98 MIL/uL (4.0-5.2); WHITE BLOOD COUNT (AUTO) 5.2 K/uL (4.3-11.0)
[2017-12-06 07:06] LABS: CALCIUM, SERUM 8.6 mg/dL (8.5-10.1); CREATININE 0.9 mg/dL (0.6-1.3); POTASSIUM 3.5 mmol/L (3.5-5.1)
--- NOTE | 2017-12-06 07:12 | NUR ---
MS RN OPENING NOTES RECEIVED PT FROM NIGHTSHIFT NURSE IN STABLE CONDITION. PT IS A/O X4. NO SOB OR SIGNS OF DISTRESS NOTED. BREATHING IS EVEN AND UNLABORED. PT IS ON RA AND SATING WELL. IV TO LEFT FA IS NOTED TO BE PATENT AND INTACT. NO REDNESS OR SIGNS OF INFILTRATION NOTED. PT TOLERATING NS INFUSION WELL. MEDICAL RESTRAINTS ON PT IS NOTED TO BE PULLING INVASIVE LINES DESPITE SITTER AT BEDSIDE. BED IN LOW LOCKED POSITION, SIDE RAILS X2, CALL LIGHT WITHIN REACH, 1:1 SITTER AT BEDSIDE. WILL CONTINUE TO MONITOR
[2017-12-06 08:00] VITALS: BP 157/80
[2017-12-06] MEDS: MEMANTINE HCL 5 MG TABLET PO SCH (08:53)
[2017-12-06] MEDS: CARVEDILOL 3.125 MG TABLET PO SCH (08:53)
[2017-12-06] MEDS: AMLODIPINE BESYLATE 10 MG TABLET PO SCH (08:53)
[2017-12-06] MEDS: HALOPERIDOL 1 MG TABLET PO SCH (08:53)
[2017-12-06] MEDS ORDERED: HALO1TAB5 PO (12:13)
[2017-12-06] MEDS ORDERED: MIRT15TA PO (12:14)
[2017-12-06] MEDS ORDERED: LEVO500T75 PO ×2 (12:14)
[2017-12-06] MEDS ORDERED: PANT40TA2 PO (12:21)
[2017-12-06] MEDS: LEVOFLOXACIN 250 MG /D5W 50 ML 250 MG in PREMIX 1 EA IV SCH (13:41)
[2017-12-06 16:00] VITALS: BP 135/55
--- NOTE | 2017-12-06 16:08 | NUR ---
MS DIRECTOR LIFE NOTES PT WAS DISCHARGED FROM FACILITY IN STABLE CONDITION. ALL NEEDS WERE MET DURING SHIFT AND ORDERS WERE CARRIED OUT ACCORDINGLY. ALL DUES MEDS GIVEN. AM CARE RENDERED BY RECEPTION CENTRE MANAGER. IV WAS SUCCESSFULLY REMOVED WITH NO COMPLICATIONS. REPORT CALLED AND GIVEN TO ANJUM THE CHARGE NURSE AT [facility]. DISCHARGE MATERIALS REVIEWED WITH ANJUM PT IS UNABLE TO COMPREHEND MATERIALS DUE TO MENTAL STATUS. ALL D/C PAPERWORK WAS SIGNED BY MYSELF AND A FELLOW RN. COPIES MADE AND PLACED IN CHART. BELONGINGS REVIEWED AND SENT WITH THE PT. SHE WAS SAFELY TRANSFERRED FROM [facility] TO [facility] AND LEFT VIA AMBULANCE TRANSPORT
== END 2017-12-06 16:14 | DRG 640 ==
LOC: ER 13:50 → TELE 16:20 → MED 12-02 04:05
PROVIDERS: ADMIT Internal Medicine; ATTEND Internal Medicine
PROC: 0DJ08ZZ Inspection of Upper Intestinal Tract, Via Natural or Artificial Opening Endoscopic (ICD-10-PCS; principal; 2017-12-03 10:40)
DX: E86.0 Dehydration (principal); E43 Unspecified severe protein-calorie malnutrition; G92 Toxic encephalopathy; N39.0 Urinary tract infection, site not specified; K57.92 Diverticulitis of intestine, part unspecified, without perforation or abscess without bleeding; K29.80 Duodenitis without bleeding; R62.7 Adult failure to thrive; K29.70 Gastritis, unspecified, without bleeding; F32.9 Major depressive disorder, single episode, unspecified; I10 Essential (primary) hypertension; M54.12 Radiculopathy, cervical region; M19.90 Unspecified osteoarthritis, unspecified site; M43.10 Spondylolisthesis, site unspecified; Z79.899 Other long term (current) drug therapy; D50.9 Iron deficiency anemia, unspecified; F29 Unspecified psychosis not due to a substance or known physiological condition; K82.8 Other specified diseases of gallbladder; E87.6 Hypokalemia; F03.90 Unspecified dementia, unspecified severity, without behavioral disturbance, psychotic disturbance, mood disturbance, and anxiety; F41.9 Anxiety disorder, unspecified
CPT/HCPCS: 36415; 70450-TC; 71045-TC; 76705-TC; 80048-TC; 80076-TC; 81000-TC; 83540-TC; 83605-TC; 83690-TC; 83735-TC; 84100-TC; 85025-TC; 85730-TC; 86850-TC; 87040-TC; 87081-TC; 87086-TC; 88305-TC; 88313-TC; 88342; 92611-TC; A4216; A4606; J1956; J2060; J2704; J7030; Z7610

== ENCOUNTER 2019-07-07 15:34 | Inpatient (IN) | payer MEDICARE, OTHER ==
[~2019-07-07] VITALS: Ht 157.5 cm; Wt 47.6 kg
[~2019-07-07 15:34] MED LIST changes: +BISA10SU11 RC; +CARV3.122 PO; +DOCU-141 PO; +ESCI5TAB PO; +HALO1TAB5 PO; -HYDR-4076 PO; +LEVO500T75 PO; -MAG30ORA PO; -MELA3TAB PO; +MEMA10TA PO; +MIRT15TA PO; -OLAN7.5T3 PO; +PANT40TA2 PO; -VALP250C PO
--- NOTE | 2019-07-07 16:05 | NUR ---
bib pa frm [facility] for posible aspiration s/p vomiting while eating lunch. Patient a/ox1, non-verbal, opens eyes, attached to the monitor car operator, no distress noted, breathing even and unlabored, spo2 100% on room air. Needs attended. Kept comfortable.
[2019-07-07] MEDS ORDERED: FAMO20TA8 PO (16:15)
[2019-07-07] MEDS ORDERED: CRAN425C6 PO (16:15)
[2019-07-07 16:28] LABS: BASOPHILS % (AUTO) 0.5 % (0.0-2.0); EOSINOPHILS % (AUTO) 1.4 % (0.0-6.0); HEMATOCRIT 40 % (33-45); HEMOGLOBIN 12.8 g/dL (11.5-14.8); LYMPHOCYTES % (AUTO) 14.5 % (20.0-44.0); MEAN CORPUSCULAR HGB CONC 32 g/dl (31.0-36.0); MEAN CORPUSCULAR VOLUME 71 fL (82-100); MONOCYTES # (AUTO) 0.5 /CMM (0.1-1.30); MONOCYTES % (AUTO) 7.3 % (2.0-12.0); NEUTROPHILS # (AUTO) 5.2 /CMM (1.8-8.9); NEUTROPHILS % (AUTO) 76.3 % (43.0-81.0); PLATELET COUNT (AUTO) 324 /CMM (150-450); RED BLOOD CELL COUNT(AUTO) 5.71 MIL/uL (4.0-5.2); WHITE BLOOD COUNT (AUTO) 6.9 K/uL (4.3-11.0)
[2019-07-07 16:36] LABS: CALCIUM, SERUM 9.9 mg/dL (8.5-10.1); CARBON DIOXIDE 29 mmol/L (21-32); CHLORIDE 103 mmol/L (98-107); CREATININE 1.2 mg/dL (0.6-1.3); GLUCOSE 121 mg/dL (74-106); POTASSIUM 4.4 mmol/L (3.5-5.1); SODIUM SERUM 140 mmol/L (136-145); UREA NITROGEN, BLOOD 16 mg/dL (7-18)
[2019-07-07 16:47] LABS: ALANINE AMINOTRANSFERASE 12 U/L (12-78); ALBUMIN 3.7 g/dL (3.4-5.0); ALKALINE PHOSPHATASE 102 U/L (46-116); ASPARTATE AMINOTRANSFERASE 20 U/L (15-37); BILIRUBIN,DIRECT 0.1 mg/dL (0.0-0.2); BILIRUBIN,TOTAL 0.3 mg/dL (0.2-1.0); TOTAL PROTEIN, SERUM 8.3 g/dL (6.4-8.2)
[2019-07-07 16:48] LABS: APPEARANCE,URINE Slightly Cloudy (CLEAR); BILIRUBIN,URINE Negative (NEGATIVE); BLOOD, URINE Negative Ery/uL (NEGATIVE); COLOR,URINE Yellow (YELLOW); KETONES,URINE Negative (NEGATIVE); LEUKOCYTE ESTERASE ,URINE Negative (NEGATIVE); NITRITE, URINE Negative (NEGATIVE); PROTEIN,URINE Negative (NEGATIVE); UGLUCOSE Negative (NEGATIVE); UROBILINOGEN,URINE 0.2 EU/dL (0.2)
[2019-07-07] MEDS ORDERED: IV NS 0.9% 1,000 ML BAG IV ONE (17:30)
[2019-07-07] MEDS ORDERED: PIPERACILLIN /TAZOBACTAM 3.375 G in IV D5W 50 ML IV ONE (17:30)
[2019-07-07] MEDS ORDERED: VANCOMYCIN 1 GM in IV D5W 250 ML IV ONE (17:30)
[2019-07-07] MEDS ORDERED: ACETAMINOPHEN 325 MG TABLET PO PRN (18:30)
[2019-07-07] MEDS ORDERED: MAGNESIUM HYDROXIDE 30 ML UDC PO PRN (18:30)
[2019-07-07] MEDS ORDERED: BISACODYL SUPP (10 MG) 10 MG/SUPP.RECT SUPP.RECT RC PRN (18:30)
[2019-07-07] MEDS ORDERED: NA PHOS,M-B/NA PHOS,DI-BA 1 EA ENEMA RC PRN (18:30)
--- NOTE | 2019-07-07 18:52 | NUR ---
REPORT GIVEN TO MARU CHEN FOR DONG.
--- NOTE | 2019-07-07 18:59 | NUR ---
PATIENT TRANSFERRED TO ROOM 328-2 VIA ACLS PROTOCOL, IN STABLE CONDITION.
[2019-07-07 19:30] VITALS: BP 151/71
--- NOTE | 2019-07-07 19:30 | NUR ---
MS/RN NOTES/NEW ADMISSION RECEIVED PATIENT FROM ER ON A GURNEY ACCOMPANIED BY ER ATTENDANT. PATIENT CONFUSED, AWAKE, AND WITH DX OF SEPSIS LACTIC ACID IS ELEVATED AT 2.1. PATIENT WITH ASPIRATIONS PRECAUTIONS, MD WILSON ATTENDING PHYSICIAN AT SNF, MD LAROSE ADMITTING MD /KATIE. PATIENT FROM SNF, WITH MULTIPLE COMORBIDITIES OF CHRONIC UTI, DEMENTIA, CATARACT, INCONTINENCE,HX OF ANEMIA. DEPRESSION. PATIENT LEFT HAND SITE GAUGE 18 AND RIGHT WRIST GAUGE 18 PATENT, WRAP WITH KERLIX PATIENT TRYING TO PULL IT. PATIENT APHASIA ,BUT ABLE TO MOVE AND REQUIRE ASSISTANCE PATIENT ATTEMPS TO GET OUT OF BED. BED ALARM ON. CONTACTED FOR ADMITTING ORDERS. BED LOCKED.
[2019-07-07 20:00] VITALS: BP 151/71
--- NOTE | 2019-07-07 21:00 | NUR ---
MS/RN NOTES PATIENT ON BED ALARM, TRYING TO GET OUT OF BED, ASSISTED FOR SAFETY, ABLE TO WALK WITH SUPERVISION AND CAN SPEAK BUT GARGLED.
[2019-07-07] MEDS ORDERED: Z GUARD REMEDY 2 OZ OINT TP PRN (21:30)
[2019-07-07] MEDS ORDERED: HYDROCODONE/APAP 5/325MG 1 EACH TABLET PO PRN (21:30)
[2019-07-07] MEDS ORDERED: ONDANSETRON HCL/PF 4 MG/2 ML VIAL IVP PRN (21:30)
[2019-07-07] MEDS ORDERED: CEFEPIME 1 GM in IV D5W 50 ML IV SCH (21:30)
--- NOTE | 2019-07-07 21:44 | NUR ---
MS/RN NOTES NO BELONGINGS RECEIVED.
[2019-07-07] MEDS: IV NS 0.9% 1,000 ML IV PRN (22:33)
--- NOTE | 2019-07-07 23:17 | NUR ---
MS/RN NOTES PATIENT IV FLUIDS RUNNING, ASLEEP AT THIS TIME.
[2019-07-08] MEDS ORDERED: METRONIDAZOLE 500MG/ NS 100ML 500 MG in PREMIX 1 EA IV SCH ×2
--- NOTE | 2019-07-08 05:42 | NUR ---
ms/rn notes patient removing iv tubing, abd refuse to have it . md made aware patient behavior and attempting to go out of bed unassisted, for restraint order. awaiting .
--- NOTE | 2019-07-08 06:30 | NUR ---
328-2MS/RN NOTES PATIENT CONFUSED, REQUIRE ASSISTANCE FOR SAFETY. PATIENT MONITORED AND BED LOCKED, BED ALARM ON. WILL ENDORSE TO AM RN . IV SITE ON RIGHT HAND PLACED,
--- NOTE | 2019-07-08 07:49 | NUR ---
RN OPENING NOTES Received patient on room air, nos ob noted, patient remains a/o x1. R wrist 18 remains in patient at this time. Bed at the lowest setting, call light within reach, side rails up x2.
[2019-07-08 08:00] VITALS: BP 125/79
[2019-07-08] MEDS: MEMANTINE HCL 5 MG TABLET PO SCH ×2 (08:38→16:29)
[2019-07-08] MEDS: CARVEDILOL 3.125 MG TABLET PO SCH ×2 (08:39→16:29)
[2019-07-08] MEDS: LORAZEPAM 0.5 MG TABLET PO SCH ×2 (08:39→16:29)
[2019-07-08] MEDS: ESCITALOPRAM OXALATE (10 MG) 10 MG TABLET PO SCH (08:39)
[2019-07-08] MEDS: AMLODIPINE BESYLATE 10 MG TABLET PO SCH (08:39)
[2019-07-08] MEDS ORDERED: Medication Not On Formulary EA (Cranberry Extract (Cranberry) 850 MG) PO SCH (09:00)
[2019-07-08] MEDS: HALOPERIDOL 1 MG TABLET PO SCH ×2 (09:00→16:28)
[2019-07-08 16:00] VITALS: BP 130/72
[2019-07-08 16:51] LABS: BASOPHILS % (AUTO) 0.8 % (0.0-2.0); EOSINOPHILS % (AUTO) 3.9 % (0.0-6.0); HEMATOCRIT 38 % (33-45); LYMPHOCYTES # (AUTO) 1.8 /CMM (0.8-4.8); LYMPHOCYTES % (AUTO) 45.5 % (20.0-44.0); MEAN CORPUSCULAR HGB CONC 32 g/dl (31.0-36.0); MEAN CORPUSCULAR VOLUME 70 fL (82-100); MONOCYTES # (AUTO) 0.5 /CMM (0.1-1.30); MONOCYTES % (AUTO) 11.5 % (2.0-12.0); NEUTROPHILS # (AUTO) 1.5 /CMM (1.8-8.9); NEUTROPHILS % (AUTO) 38.3 % (43.0-81.0); PLATELET COUNT (AUTO) 301 /CMM (150-450); RED BLOOD CELL COUNT(AUTO) 5.42 MIL/uL (4.0-5.2); WHITE BLOOD COUNT (AUTO) 3.9 K/uL (4.3-11.0)
[2019-07-08 17:03] LABS: CALCIUM, SERUM 9.3 mg/dL (8.5-10.1); CREATININE 0.9 mg/dL (0.6-1.3); PHOSPHORUS 3.1 mg/dL (2.5-4.9); POTASSIUM 3.8 mmol/L (3.5-5.1)
[2019-07-08 17:18] LABS: BAND % (MANUAL) 1 % (0.0-5.0); LYMPHOCYTES % (MANUAL) 48 % (16-48); NEUTROPHILS % (MANUAL) 36 (42-76)
[2019-07-08 17:19] LABS: EOSINOPHILS % (MANUAL) 5 % (0-4); MONOCYTES % (MANUAL) 7 % (0-11.0); REACTIVE LYMPHOCYTES 3 % (0-0)
[2019-07-08] MEDS: DOCUSATE SODIUM 100 MG CAPSULE PO SCH (17:20)
--- NOTE | 2019-07-08 18:12 | NUR ---
RN MS CLOSING NOTES Patient remains on room air, no sob noted, a/o x1. CCHO 60 gms chopped diet at this time. R wrist IV line. Patient sometimes get up the room and walks around the hallway. Good balance and refuses to listen. Bed at the lowest setting, call light within reach, side rails up x2. Will give report to NOC RN for DONG bedside.
--- NOTE | 2019-07-08 19:55 | NUR ---
MS/RN RECEIVED PATIENT IN BED AWAKE, FLAT AFFECT, NOT VERBALLY RESPONSIVE, CALM AND COMFORTABLE, NO DISTRESS NOTED, CALL LIGHT IN REACH. FALL PRECAUTION. WILL MONITOR.
[2019-07-08 20:00] VITALS: BP 142/66
[2019-07-08] MEDS: ZOLPIDEM TARTRATE 5 MG TABLET PO PRN (21:20)
--- NOTE | 2019-07-08 22:32 | NUR ---
MS/RN IV NOT PATENT, REMOVED ATTEMPTED TO INSERT NEW IV X 2 BUT UNSUCCESSFUL. PHARMACEUTICAL DEVELOPMENT TECHNICIAN GILL WAS ABLE TO INSERT AT RIGHT AC G22.
--- NOTE | 2019-07-08 22:43 | NUR ---
MS/RN PATIENT IS SLEEPING AT THIS TIME, APPEAR COMFORTABLE, NO DISTRESS NOTED, CALL LIGHT IN REACH. WILL CONTINUE TO MONITOR.
--- NOTE | 2019-07-09 06:05 | NUR ---
MS/RN PATIENT IS SLEEPING AT THIS TIME, APPEAR COMFORTABLE, NO SIGNS OF DISTRESS NOTED, CALL LIGHT IN REACH. WILL CONTINUE TO MONITOR.
--- NOTE | 2019-07-09 07:52 | NUR ---
RN OPENING NOTES Patient remains on room air, no sob noted, patient shows no s/s of pain at this time. Patient on her bed with restraints, renewed at 0500 by NOC shift. R AC 22 gauge at this time. Bed at the lowest setting, call light within reach, side rails up x2.
[2019-07-09 08:00] VITALS: BP 132/78
[2019-07-09] MEDS: CARVEDILOL 3.125 MG TABLET PO SCH ×2 (08:54→16:20)
[2019-07-09] MEDS: LORAZEPAM 0.5 MG TABLET PO SCH ×2 (08:55→16:19)
[2019-07-09] MEDS: AMLODIPINE BESYLATE 10 MG TABLET PO SCH (08:55)
[2019-07-09] MEDS: ESCITALOPRAM OXALATE (10 MG) 10 MG TABLET PO SCH (08:55)
[2019-07-09] MEDS: MEMANTINE HCL 5 MG TABLET PO SCH ×2 (08:55→16:20)
[2019-07-09] MEDS: HALOPERIDOL 1 MG TABLET PO SCH ×2 (09:05→16:21)
[2019-07-09 16:00] VITALS: BP 134/75
[2019-07-09] MEDS: IV NS 0.9% 1,000 ML IV PRN (16:40)
[2019-07-09] MEDS: DOCUSATE SODIUM 100 MG CAPSULE PO SCH (17:46)
--- NOTE | 2019-07-09 18:10 | NUR ---
rn closing notes Patient remains on room air, no sob noted, patient a/o x1 and is non verbal. CCHO diet. R AC 22 with NS @ 75 ml per hour infusing. Bed at the lowest setting, call light within reach, side rails up x2. Will give report to NOC RN for DONG bedside.
--- NOTE | 2019-07-09 19:00 | NUR ---
ms kevin initial notes received report from am nurse Shauna and checked pt she's in bed lying but awake , no signs of any distress noted. still with bilateral soft wrist restraint. skin warm and pulse present on both wrist. re-oriented where she at . kept her warm and comfortable at all times. place call light at reach.
[2019-07-09 20:00] VITALS: BP 149/67
--- NOTE | 2019-07-10 | NUR ---
ms it program manager initial notes pt resting comfortably in bed without any distress noted. IVF still infusing. right wrist restraint released for a while because pt sleeping and calmed at this time. no signs of any distress noted.
[2019-07-10] MEDS: IV NS 0.9% 1,000 ML IV PRN (03:52)
--- NOTE | 2019-07-10 06:00 | NUR ---
ms learning and development director notes sponges bath rendered with the helped of vinod , reposition for comfort. stable dashawn the night except confusion and pt tried to get up and pulling her IV line. intermittent sleep noted but no signs of any distress noted. kept her warm and comfortable at all times. Soft wrist restrain applied as ordered for pt safety. will continue monitoring.
--- NOTE | 2019-07-10 07:26 | NUR ---
MS KALA CLOSING NOTES PT AWAKE AND ALERT MORNING CARE DONE WELL WOUND CARE TREATMENT. BLOOD SUGAR 98 NO INSULIN DUE AT THIS TIME. NO SIGNS OF ANY DISCOMFORT NOTED . ALL DUE MEDS GIVEN AND ALL NEEDS MET KEPT HER WARM AND COMFORTABLE AT ALL TIMES. ENDORSE TO AM NURSE ARAMIS FOR CONTINUITY OF CARE. PLACE CALL LIGHT AT REACH. Addendum: 07/10/19 at 0733 by AISLINN BARNES LVN PLEASE DISREGARD THIS NOTE BELONG TO DIFF PT.
--- NOTE | 2019-07-10 07:34 | NUR ---
MS WASHER ENGINEER HELPER CLOSING NOTES PT RESTING AT THIS TIME AFTER MORNING CARE DONE. STABLE LEXUS THE NIGHT AND SLEPT ON AND OFF. NO SIGNS OF ANY ACUTE DISTRESS NOTED. KEPT HER WARM AND COMFORTABLE AT ALL TIMES. STILL ON SOFT BILATERAL WRIST RESTRAIN ORDERED PER PT SAFETY. WILL ENDORSE
--- NOTE | 2019-07-10 08:06 | NUR ---
MS RN OPENING NOTES RECEIVED PATIENT IN BED, ASLEEP. PATIENT ON ROOM AIR. BREATHING IS EVEN AND SYMMETRICAL. NO ACUTE SIGNS OF DISTRESS NOTED. NO SOB AT THIS TIME. RIGHT HAND IV GAUGE # 22 PRESENT AND INTACT, INFUSING NS AT 75 MLS/HR. SAFETY PRECAUTIONS IN PLACE; BED IN LOW POSITION AND LOCKED, RAILS UP X 2, CALL LIGHT WITHIN REACH. WILL CONTINUE TO MONITOR PATIENT.
[2019-07-10 08:47] VITALS: BP 144/79
[2019-07-10] MEDS: ESCITALOPRAM OXALATE (10 MG) 10 MG TABLET PO SCH (09:29)
[2019-07-10] MEDS: AMLODIPINE BESYLATE 10 MG TABLET PO SCH (09:30)
[2019-07-10] MEDS: CARVEDILOL 3.125 MG TABLET PO SCH ×2 (09:30→17:02)
[2019-07-10] MEDS: MEMANTINE HCL 5 MG TABLET PO SCH ×2 (09:31→17:02)
[2019-07-10] MEDS: LORAZEPAM 0.5 MG TABLET PO SCH ×2 (09:32→17:11)
[2019-07-10] MEDS: HALOPERIDOL 1 MG TABLET PO SCH ×2 (09:33→17:08)
--- NOTE | 2019-07-10 12:05 | NUR ---
MS RN NOTES LAB CALLED AND NOTIFIED ABOUT PATIENT CRITICAL VALUE FOR LACTIC ACID 2.4. MD NOTIFIED.
--- NOTE | 2019-07-10 13:27 | NUR ---
MS RN NOTES PER DR. SHAVER IV NS INCREASED FROM 75 MLS/HR TO 100 MLS/HR
[2019-07-10 14:14] LABS: BILIRUBIN,DIRECT 0.1 mg/dL (0.0-0.2); BILIRUBIN,TOTAL 0.4 mg/dL (0.2-1.0); CREATININE 0.7 mg/dL (0.6-1.3)
[2019-07-10 16:00] VITALS: BP 166/84
[2019-07-10] MEDS: DOCUSATE SODIUM 100 MG CAPSULE PO SCH (17:02)
--- NOTE | 2019-07-10 19:27 | NUR ---
MS RN CLOSING NOTES PATIENT IN BED, AWAKE, NON-VERBAL WITH FLAT AFFECT. PATIENT ON ROOM AIR. BREATHING IS EVEN AND SYMMETRICAL. NO ACUTE SIGNS OF DISTRESS NOTED. NO SOB AT THIS TIME. NO SIGNS OF PAIN PRESENT SUCH FACE GRIMACING OR GUARDING. RIGHT HAND IV GAUGE # 22 PRESENT AND INTACT, INFUSING NS AT 100 MLS/HR. SAFETY PRECAUTIONS IN PLACE; BED IN LOW POSITION AND LOCKED, RAILS UP X 2, CALL LIGHT WITHIN REACH. WILL ENDORCE TO CLINICAL INFORMATICS DIRECTOR NURSE.
[2019-07-10 20:00] VITALS: BP 145/89
--- NOTE | 2019-07-10 20:00 | NUR ---
MS INSTRUCTOR OF EDUCATION INITIAL NOTES RECEIVED PT IN BED AWAKE AND ALERT STILL NON-VERBAL NOT IN ANY ACUTE DISTRESS NOTED. NO SIGNS OF ANY DISCOMFORT. IVF STILL INFUSING AND BOTH WRIST STILL WITH SOFT RESTRAINT ORDERED. SKIN WARM AND DRY TO TOUCH AND PULSE PRESENT . KEPT HER WARM AND COMFORTABLE AT ALL TIMES. WILL CONTINUE MONITORING.
[2019-07-10] MEDS: ZOLPIDEM TARTRATE 5 MG TABLET PO PRN (23:35)
--- NOTE | 2019-07-11 02:03 | NUR ---
MS KALA NOTES PT SLEEPING AT THIS TIME WITHOUT ANY ACUTE DISTRESS NOTED.. WILL CONTINUE MONITORING.
[2019-07-11] MEDS: IV NS 0.9% 1,000 ML IV PRN (06:14)
--- NOTE | 2019-07-11 07:49 | NUR ---
MS RN OPENING NOTES RECEIVED PATIENT IN BED, AWAKE,NON-VERBAL WITH FLAT AFFECT. PATIENT LAYING STILL AT THIS MOMENT. PATIENT BREATHING ON ROOM AIR. BREATHING IS EVEN AND SYMMETRICAL. NO ACUTE SIGNS OF DISTRESS NOTED. NO SOB AT THIS TIME. NO SIGNS OF PAIN NOTED SUCH FACIAL GRIMACING OR GUARDING. RAC GAUGE # 22 PRESENT AND INTACT INFUSING NS AT 100 MLS/HR. SAFETY PRECAUTIONS IN PLACE; BED IN LOW POSITION AND LOCKED, RAILS UP X 2, CALL LIGHT WITHIN REACH. WILL CONTINUE TO MONITOR PATIENT.
--- NOTE | 2019-07-11 07:49 | NUR ---
ms doweling machine operator closing notes pt awake calmed at this time. slept well after ambien given . stable dashawn the night but still on soft wrist restraint because pt trying to get up and fulling her IV line. kept her warm and comfortable at all times. all due meds given and all needs endorse to am nurse for continuity of care.
[2019-07-11] MEDS: LORAZEPAM 0.5 MG TABLET PO SCH (09:13)
[2019-07-11] MEDS: ESCITALOPRAM OXALATE (10 MG) 10 MG TABLET PO SCH (09:15)
[2019-07-11] MEDS: AMLODIPINE BESYLATE 10 MG TABLET PO SCH (09:15)
[2019-07-11] MEDS: CARVEDILOL 3.125 MG TABLET PO SCH (09:16)
[2019-07-11] MEDS: MEMANTINE HCL 5 MG TABLET PO SCH (09:16)
[2019-07-11] MEDS: HALOPERIDOL 1 MG TABLET PO SCH (09:17)
[2019-07-11 10:04] VITALS: BP 160/85
--- NOTE | 2019-07-11 15:20 | NUR ---
MS RN NOTES PER EDITOR DEPARTMENT REPORT PATIENT DID NOT VOID SINCE MORNING UNTIL ABOUT 2 PM. NOTIFIED MD AND WAS ORDERED TO DO BLADDER SCAN. THE SCAN SHOWED 340 MLS. PER MD ORDER STRAIGHT CATH WAS PERFORMED AND 420 MLS DRAINED. URINE CLEAR AND YELLOW.
--- NOTE | 2019-07-11 16:17 | NUR ---
MS SQUAD SERGEANT NOTES PATIENT DISCHARGED TO SNF ([facility]) IN MEDICALLY STABLE CONDITION. CALL[facility] AND GAVE REPORT TO EUGENE, ADMITTING NURSE. PATIENT SATURATING WELL ON ROOM AIR AT 97%. ALL VS WNL. IV LINE AND WRIST BANDS REMOVED. PATIENT NON-VERBAL AND WITH FLAT AFFECT, UNABLE TO SIGN THE FORMS. VALUABLE FORM AND DISCHARGE PAPER SIGNED BY 2 RNs. PATIENT LEFT THE FLOOR ACCOMPANIED BY 2 behavioral health therapist AT 1553.
== END 2019-07-11 16:00 | DRG 391 ==
LOC: ER 15:34 → MED 19:24
PROVIDERS: ADMIT Internal Medicine; ATTEND Family Medicine
DX: A08.4 Viral intestinal infection, unspecified (principal); G92 Toxic encephalopathy; E87.2 Acidosis; E46 Unspecified protein-calorie malnutrition; Z68.1 Body mass index [BMI] 19.9 or less, adult; E86.0 Dehydration; I10 Essential (primary) hypertension; F32.9 Major depressive disorder, single episode, unspecified; F03.90 Unspecified dementia, unspecified severity, without behavioral disturbance, psychotic disturbance, mood disturbance, and anxiety; R62.7 Adult failure to thrive; Z79.899 Other long term (current) drug therapy; K29.70 Gastritis, unspecified, without bleeding; R40.2413 Glasgow coma scale score 13-15, at hospital admission
CPT/HCPCS: 36415; 71045-TC; 80048-TC; 80061-TC; 80076-TC; 81000-TC; 82247-TC; 82248-TC; 82565-TC; 83605-TC; 83735-TC; 84100-TC; 84484-TC; 85025-TC; 85730-TC; 87040-TC; 87081-TC; 87086-TC; 92526; 92611-TC; 97530-TC; A4216; G0378; J0692; J2543; J3370; J3490; J7030; J7060

== ENCOUNTER 2019-07-18 22:04 | Inpatient (IN) | payer MEDICARE, OTHER ==
[~2019-07-18] VITALS: Ht 157.5 cm; Wt 58.1 kg
[~2019-07-18 22:04] MED LIST changes: +CRAN425C6 PO; -ERGO500014 PO; +FAMO20TA8 PO; -LEVO500T75 PO; -MIRT15TA PO; -PANT40TA2 PO
--- NOTE | 2019-07-18 22:30 | NUR ---
TYLER FROM [facility]. TO ER BED 1. AAOX1. NO RESP DISTRESS NOTED. BROUGHT IN FD/T PT FOUND ON FLOOR. UNKNOWN FOR KO AND UNWITNESSED. PT HAS DX OF DEMENTIA AND TENDS TO WONDER. PT IS NON VERBAL SO UNABLE TO GET INFORMATION. NOTED A BUMP ABOUT THE SIZE OF A GOLF BALL, SKIN INTACT. ILANA. WAS AT BEDSIDE FOR SUHA.
[2019-07-18 22:34] LABS: BASOPHILS % (AUTO) 0.8 % (0.0-2.0); EOSINOPHILS % (AUTO) 3.7 % (0.0-6.0); HEMATOCRIT 34 % (33-45); HEMOGLOBIN 10.9 g/dL (11.5-14.8); LYMPHOCYTES # (AUTO) 1.5 /CMM (0.8-4.8); LYMPHOCYTES % (AUTO) 27.3 % (20.0-44.0); MEAN CORPUSCULAR HGB CONC 32 g/dl (31.0-36.0); MEAN CORPUSCULAR VOLUME 71 fL (82-100); MONOCYTES # (AUTO) 0.5 /CMM (0.1-1.30); MONOCYTES % (AUTO) 9.2 % (2.0-12.0); NEUTROPHILS # (AUTO) 3.3 /CMM (1.8-8.9); PLATELET COUNT (AUTO) 293 /CMM (150-450); RED BLOOD CELL COUNT(AUTO) 4.85 MIL/uL (4.0-5.2); WHITE BLOOD COUNT (AUTO) 5.5 K/uL (4.3-11.0)
[2019-07-18 22:46] LABS: CALCIUM, SERUM 8.8 mg/dL (8.5-10.1); CARBON DIOXIDE 29 mmol/L (21-32); CHLORIDE 106 mmol/L (98-107); GLUCOSE 90 mg/dL (74-106); POTASSIUM 3.8 mmol/L (3.5-5.1); SODIUM SERUM 143 mmol/L (136-145); UREA NITROGEN, BLOOD 14 mg/dL (7-18)
[2019-07-18 22:52] LABS: ALANINE AMINOTRANSFERASE 11 U/L (12-78); ALBUMIN 3.1 g/dL (3.4-5.0); ALKALINE PHOSPHATASE 93 U/L (46-116); ASPARTATE AMINOTRANSFERASE 16 U/L (15-37); BILIRUBIN,DIRECT 0.1 mg/dL (0.0-0.2); BILIRUBIN,TOTAL 0.2 mg/dL (0.2-1.0)
[2019-07-18 23:13] LABS: EOSINOPHILS % (MANUAL) 4 % (0-4); LYMPHOCYTES % (MANUAL) 30 % (16-48); MONOCYTES % (MANUAL) 10 % (0-11.0); NEUTROPHILS % (MANUAL) 56 (42-76)
--- NOTE | 2019-07-18 23:35 | NUR ---
called for tele bed
--- NOTE | 2019-07-18 23:54 | NUR ---
recieved bed 304-1
[2019-07-19] VITALS (7 sets, daily range): BP systolic 122–160; BP diastolic 65–88
--- NOTE | 2019-07-19 01:30 | NUR ---
GRILL COOK ADMITTING NOTES PT RECEIVED FROM ER VIA GURNEY IN STABLE CONDITION. PT A/O X0-1 OPENS EYES, SMALL ANSWERS. RESPIRATIONS EVEN AND UNLABORED WITH NO S/S OF ACUTE DISTRESS OR SOB NOTED. NO S/S OF PAIN AT THIS TIME. PT ON TELE MONITORING WITH SR OF 63. PT NOTED WITH RFA @20G PATENT AND INTACT AND SL. SAFETY MEASURES IN PLACE WITH BED IN LOWEST LOCKED POSITION WITH SIDE RAILS UP X2. CALL LIGHT WITHIN REACH. WILL CONTINUE TO MONITOR.
--- NOTE | 2019-07-19 01:36 | NUR ---
PT TRANSPORTED TO UNIT ON [facility] W/ RN AT BEDSIDE. NAD NOTED
--- NOTE | 2019-07-19 01:36 | NUR ---
REPORT GIVEN TO APRIL LOPEZ FOR DONG. TO 304 TELE
[2019-07-19] MEDS ORDERED: IV NS 0.9% 1,000 ML IV PRN (03:18)
[2019-07-19] MEDS ORDERED: ACETAMINOPHEN 325 MG TABLET PO PRN (03:30)
[2019-07-19] MEDS ORDERED: Z GUARD REMEDY 2 OZ OINT TP PRN (03:30)
[2019-07-19] MEDS ORDERED: ONDANSETRON HCL/PF 4 MG/2 ML VIAL IVP PRN (03:30)
[2019-07-19] MEDS ORDERED: HYDROCODONE/APAP 5/325MG 1 EACH TABLET PO PRN (03:30)
--- NOTE | 2019-07-19 07:45 | NUR ---
CLINICAL RN LIAISON NOTES PT IN BED AND AWAKE. PT A/O X0-1 OPENS EYES, SMALL ANSWERS. RESPIRATIONS EVEN AND UNLABORED WITH NO S/S OF ACUTE DISTRESS OR SOB NOTED THROUGHOUT SHIFT. NO S/S OF PAIN AT THIS TIME. PT ON TELE MONITORING WITH SB OF 58. PT NOTED WITH RFA @20G PATENT AND INTACT AND SL. SAFETY MEASURES IN PLACE WITH BED IN LOWEST LOCKED POSITION WITH SIDE RAILS UP X2. CALL LIGHT WITHIN REACH. WILL ENDORSE TO ONCOMING NURSE FOR DONG.
--- NOTE | 2019-07-19 08:05 | NUR ---
CHAIRMAN EMERITUS OPENING NOTES RECEIVED PT ON BED ASLEEP, EASILY AROUSABLE. A/OX1, NON VERBAL, OPEN EYES FOR COMMUNICATION. RESPIRATION EVEN AND NON LABORED WITH NO ACUTE RESPIRATORY DISTRESS. ABD SOFT AND NON DISTENDED WITH ACTIVE BOWEL SOUNDS, ON DIAPER. SKIN WARM TO TOUCH AND DRY. NO ASSESSED SIGNS OF PAIN AND DISCOMFORT. TELE MONITOR SHOWS SINUS BRADYCARDIA 59. IV SITE AT RIGHT FA PATENT IN FLUSHING. CALL LIGHT WITHIN REACHED. BED IN LOW POSITION, SEMI FOWLERS POSITION. WILL CONTINUE TO MONITOR PATIENT CARE.
[2019-07-19] MEDS: ENOXAPARIN SODIUM 40 MG/0.4 ML DISP.SYRIN SQ SCH (09:26)
[2019-07-19] MEDS: HALOPERIDOL 1 MG TABLET PO SCH ×2 (09:26→16:35)
[2019-07-19] MEDS: FAMOTIDINE (20 MG) 20 MG TABLET PO SCH (09:27)
[2019-07-19] MEDS: AMLODIPINE BESYLATE 10 MG TABLET PO SCH (09:27)
[2019-07-19] MEDS: ASPIRIN EC 81 MG TABLET.DR PO SCH (09:27)
[2019-07-19] MEDS: ESCITALOPRAM OXALATE (10 MG) 10 MG TABLET PO SCH (09:27)
[2019-07-19] MEDS: MEMANTINE HCL 5 MG TABLET PO SCH ×2 (09:27→16:34)
[2019-07-19] MEDS: CARVEDILOL 3.125 MG TABLET PO SCH ×2 (09:27→16:35)
--- NOTE | 2019-07-19 09:45 | NUR ---
HEAT TREAT TECHNICIAN NOTES PT ATE BREAKFAST WITH MINIMUM ASSISTANCE TO ABLE IN EATING INDEPENDENTLY. TO MONITOR ADL.
--- NOTE | 2019-07-19 11:25 | NUR ---
WOOL SHEARER NOTES ORTHOSTATIC HYPOTENSION ASSESSED. LYING 122/67 MM HG, SITTING 130/76 M HG, STANDING 134/78 MM HG.
--- NOTE | 2019-07-19 18:49 | NUR ---
STAFF RADIOLOGIST CLOSING NOTES PT A/OX1, NON VERBAL. NO PRESENCE OF ACUTE RESPIRATORY DISTRESS. ABD SOFT AND NON DISTENDED, BM X1 TODAY. ASSESSED NO S/SX ON PAIN AND DISCOMFORT. SKIN WARM TO TOUCH AND DRY. NO NEW OPEN SKIN BREAKDOWN. TELE MONITOR SHOWS SINUS RHYTHM 78. IV SITE AT RIGHT FA, PATENT IN FLUSHING. PT WITH NS AT 75 ML/HR PRN ORDER, PT PULLING IV ON OFF. PT ALSO TAKE OFF TELE MONITOR BOX FREQUENTLY. PT WANDERED IN THE AFTERNOON. RE-DIRECTIONS AND EXPLANATION INTERVENED, PT COOPERATIVE WITH CARE, NO AH/VH, NO COMBATIVE BEHAVIOR NOTED. ALL CARE ATTENDED. BED IN LOW POSITION, SIDE RAILS X2 UP FOR BED MOBILITY, BED ALARM ON DUE TO EPISODES OF WANDERING AND GOING OUT OF THE BED, SITTER PRESENT ON BEDSIDE AT THIS TIME. WILL MONITOR BEHAVIOR. ENDORSED PT CARE TO NEXT SHIFT.
--- NOTE | 2019-07-19 19:30 | NUR ---
TANK CAR CLEANER NOTES RECEIVED ON BED A/O X1,NO VERBAL,OPEN EYES TO NAME,SB-58 ON TELE MONITOR,AMBULATE WITH ASSIST,FALL PRECAUTION OBSERVED,BED ALARM TRIGGERED.BED ON LOWEST POSITION AND LOCKED.CALL LIGHT IN REACH,NEEDS ANTICIPATED.
--- NOTE | 2019-07-19 23:00 | NUR ---
AIRPLANE WOODWORKER NOTES TOOK OUT TELE MONITOR BY PATIENT,PUT ON STANDBY.
[2019-07-20] VITALS: BP 138/67
[2019-07-20 04:00] VITALS: BP_SYST 132; BP_DIAS 74; BP_DIAS 77
--- NOTE | 2019-07-20 04:00 | NUR ---
MANAGER OF ORGANIZATIONAL DEVELOPMENT NOTES PUT BACK ON TELE MONITOR,CALM AND QUIET THIS TIME
--- NOTE | 2019-07-20 05:00 | NUR ---
ARMED SECURITY PROFESSIONAL NOTES IVF RESUMED THIS TIME.
[2019-07-20 06:25] LABS: BASOPHILS % (AUTO) 0.9 % (0.0-2.0); EOSINOPHILS % (AUTO) 5.5 % (0.0-6.0); HEMATOCRIT 34 % (33-45); LYMPHOCYTES # (AUTO) 1.8 /CMM (0.8-4.8); LYMPHOCYTES % (AUTO) 44.4 % (20.0-44.0); MEAN CORPUSCULAR HGB CONC 33 g/dl (31.0-36.0); MEAN CORPUSCULAR VOLUME 70 fL (82-100); MONOCYTES # (AUTO) 0.5 /CMM (0.1-1.30); MONOCYTES % (AUTO) 11.8 % (2.0-12.0); NEUTROPHILS # (AUTO) 1.5 /CMM (1.8-8.9); NEUTROPHILS % (AUTO) 37.4 % (43.0-81.0); PLATELET COUNT (AUTO) 293 /CMM (150-450); RED BLOOD CELL COUNT(AUTO) 4.84 MIL/uL (4.0-5.2)
--- NOTE | 2019-07-20 06:25 | NUR ---
SITE SUPERVISING TECHNICAL OPERATOR NOTES CALM AND QUIET THRU OUT SHIFT,IVF INFUSING,SITE PATENT ON RIGHT ARM.NO FALL,NO INJURY.CALL LIGHT IN REACH,NEEDS ATTENDED.WILL ENDORSE TO DAY NURSE FOR DONG.
[2019-07-20 06:45] LABS: CALCIUM, SERUM 8.6 mg/dL (8.5-10.1); PHOSPHORUS 3.2 mg/dL (2.5-4.9); POTASSIUM 3.8 mmol/L (3.5-5.1)
--- NOTE | 2019-07-20 07:39 | NUR ---
ENGINE ROOM HELPER OPENING NOTE RECEIVED PATIENT IN BED SLEEPING COMFORTABLY. PATIENT IN NO ACUTE DISTRESS. NO SOB NOTED. PATIENT BREATHING IS EVEN AND UNLABORED. PATIENT ON TELE MONITORING READING SINUS BRADYCARDIA HR 58. SAFETY PRECAUTIONS IN PLACE. BED ALARM IS ON. PATIENT BED IS LOCKED AND IN LOWEST POSITION. CALL LIGHT WITHIN REACH. WILL CONTINUE TO MONITOR.
[2019-07-20 08:00] VITALS: BP 136/77
[2019-07-20] MEDS: HALOPERIDOL 1 MG TABLET PO SCH (09:31)
[2019-07-20] MEDS: ENOXAPARIN SODIUM 40 MG/0.4 ML DISP.SYRIN SQ SCH (09:32)
[2019-07-20] MEDS: ASPIRIN EC 81 MG TABLET.DR PO SCH (09:33)
[2019-07-20] MEDS: AMLODIPINE BESYLATE 10 MG TABLET PO SCH (09:33)
[2019-07-20] MEDS: FAMOTIDINE (20 MG) 20 MG TABLET PO SCH (09:33)
[2019-07-20] MEDS: CARVEDILOL 3.125 MG TABLET PO SCH (09:34)
[2019-07-20] MEDS: MEMANTINE HCL 5 MG TABLET PO SCH (09:34)
[2019-07-20] MEDS: ESCITALOPRAM OXALATE (10 MG) 10 MG TABLET PO SCH (09:34)
--- NOTE | 2019-07-20 14:00 | NUR ---
PATIENT KEEPS MOVING AND UNCOOPERATIVE. DEFER CAROTID EXAM.
[2019-07-20] MEDS ORDERED: QUETIAPINE FUMARATE 25 MG TABLET PO SCH (15:00)
[2019-07-20 16:00] VITALS: BP 113/69
--- NOTE | 2019-07-20 17:55 | NUR ---
MS MACHINE II CUTTER NOTE PATIENT MEDICALLY STABLE FOR DISCHARGE. PATIENT IN NO ACUTE DISTRESS. NO SOB NOTED. PATIENT BREATHING IS EVEN AND UNLABORED. PATIENT DC INSTRUCTIONS PROVIDED. PATIENT UNABLE TO COMPREHEND. DC PACKET AND BELONGINGS LIST SIGNED BY TWO NURSES. PATIENT IV REMOVED. ID BAND REMOVED. PATIENT KEPT CLEAN DRY AND COMFORTABLE THROUGHOUT SHIFT. PATIENT SKIN ASSESSED. NO NEW SKIN BREAKDOWN NOTED. PATIENT GOING TO [facility]. PATIENT GOING BY GURNEY TO AMBULANCE BACK TO [facility]. REPORT GIVEN TO EMT. REPORT GIVEN TO AYESHA CHEN AT [facility]. AWARE OF DISCHARGE. Addendum: 07/20/19 at 1803 by RAY SCHWARZ RN MS MACHINE II CUTTER NOTE PATIENT MEDICALLY STABLE FOR DISCHARGE. PATIENT IN NO ACUTE DISTRESS. NO SOB NOTED. PATIENT BREATHING IS EVEN AND UNLABORED. PATIENT DC INSTRUCTIONS PROVIDED. PATIENT UNABLE TO COMPREHEND. DC PACKET AND BELONGINGS LIST SIGNED BY TWO NURSES. PATIENT IV REMOVED. ID BAND REMOVED. PATIENT KEPT CLEAN DRY AND COMFORTABLE THROUGHOUT SHIFT. PATIENT SKIN ASSESSED. NO NEW SKIN BREAKDOWN NOTED. PATIENT GOING TO [facility]. PATIENT GOING BY GURNEY TO AMBULANCE BACK TO [facility]. REPORT GIVEN TO EMT. REPORT GIVEN TO AYESHA CHEN AT [facility]. PATIENT LEFT WITH BRAND COMMUNICATIONS MANAGER AT 1730. AWARE OF DISCHARGE.
== END 2019-07-20 18:00 | DRG 640 ==
LOC: ER 22:07 → TELE 07-19 00:23 → MED 07-20 09:37
PROVIDERS: ADMIT Nurse Practitioner Acute Care; ATTEND Nurse Practitioner Acute Care
DX: E86.0 Dehydration (principal); G93.41 Metabolic encephalopathy; R55 Syncope and collapse; F03.90 Unspecified dementia, unspecified severity, without behavioral disturbance, psychotic disturbance, mood disturbance, and anxiety; D50.9 Iron deficiency anemia, unspecified; F32.9 Major depressive disorder, single episode, unspecified; I10 Essential (primary) hypertension; K21.9 Gastro-esophageal reflux disease without esophagitis; M19.90 Unspecified osteoarthritis, unspecified site; S00.03XA Contusion of scalp, initial encounter; W19.XXXA Unspecified fall, initial encounter; Y93.9 Activity, unspecified; Y92.129 Unspecified place in nursing home as the place of occurrence of the external cause
CPT/HCPCS: 36415; 70450-TC; 71045-TC; 80048-TC; 80061-TC; 80076-TC; 82962-TC; 83735-TC; 84100-TC; 84484-TC; 85025-TC; 85730-TC; 87081-TC; 93307-TC; 97116-TC; 97530-TC; G0378; J1650; J7030

== ENCOUNTER 2021-03-03 13:08 | Inpatient (IN) | payer MEDICARE, OTHER ==
[~2021-03-03] VITALS: Ht 160 cm; Wt 48.1 kg
--- NOTE | 2021-03-03 13:25 | NUR ---
TO ER BED 7, VINH Zimbabwean professional [address] From [facility] "weaker than usual Failure to thrive", patient don't speak nor make eye contact, attached to monitor, changed to gown, breathing even and unlabored
[2021-03-03 14:00] LABS: BASOPHILS # (AUTO) 0.1 K/uL (0.0-0.2); BASOPHILS % (AUTO) 1.8 % (0.0-2.0); EOSINOPHILS % (AUTO) 3.9 % (0.0-6.0); HEMATOCRIT 38 % (33-45); LYMPHOCYTES # (AUTO) 1.5 K/uL (0.8-4.8); LYMPHOCYTES % (AUTO) 38.4 % (20.0-44.0); MEAN CORPUSCULAR HGB CONC 31 g/dl (31.0-36.0); MEAN CORPUSCULAR VOLUME 71 fL (82-100); MONOCYTES # (AUTO) 0.2 K/uL (0.1-1.30); MONOCYTES % (AUTO) 4.8 % (2.0-12.0); NEUTROPHILS % (AUTO) 51.1 % (43.0-81.0); PLATELET COUNT (AUTO) 305 K/uL (150-450); RED BLOOD CELL COUNT(AUTO) 5.41 MIL/uL (4.0-5.2); WHITE BLOOD COUNT (AUTO) 3.9 K/uL (4.3-11.0)
[2021-03-03 14:07] LABS: CALCIUM, SERUM 9.3 mg/dL (8.5-10.1); CARBON DIOXIDE 28 mmol/L (21-32); CHLORIDE 109 mmol/L (98-107); CREATININE 0.9 mg/dL (0.6-1.3); GLUCOSE 89 mg/dL (74-106); POTASSIUM 3.7 mmol/L (3.5-5.1); SODIUM SERUM 146 mmol/L (136-145); UREA NITROGEN, BLOOD 17 mg/dL (7-18)
[2021-03-03 14:13] LABS: ALANINE AMINOTRANSFERASE 9 U/L (12-78); ALBUMIN 3.3 g/dL (3.4-5.0); ALKALINE PHOSPHATASE 83 U/L (46-116); ASPARTATE AMINOTRANSFERASE 14 U/L (15-37); BILIRUBIN,DIRECT 0.1 mg/dL (0.0-0.2); BILIRUBIN,TOTAL 0.2 mg/dL (0.2-1.0); TOTAL PROTEIN, SERUM 7.8 g/dL (6.4-8.2)
[2021-03-03] MEDS ORDERED: OMEP20TA5 PO (15:21)
--- NOTE | 2021-03-03 15:32 | NUR ---
COVID SWAB DONE AND SENT TO LAB
--- NOTE | 2021-03-03 15:34 | NUR ---
CALLED [facility], PAGED ION FIGUEROA
--- NOTE | 2021-03-03 16:10 | NUR ---
CALLED NURSING [facility] FOR BED
--- NOTE | 2021-03-03 16:57 | NUR ---
URINE COLLECTED AND SENT TO LAB
[2021-03-03 17:16] LABS: BILIRUBIN,URINE Negative (NEGATIVE); COLOR,URINE YELLOW (YELLOW); LEUKOCYTE ESTERASE ,URINE Moderate (NEGATIVE); NITRITE, URINE Negative (NEGATIVE); PROTEIN,URINE 30 mg/dl (NEGATIVE); UGLUCOSE Negative (NEGATIVE); UROBILINOGEN,URINE 0.2 EU/dL (0.2)
[2021-03-03 17:26] LABS: RBC,URINE 21-50 /HPF (0-2)
[2021-03-03 17:27] LABS: BACTERIA,URINE 4+ /HPF (None Seen); MUCUS,URINE Many /LPF (None Seen); SQUAMOUS EPITHELIAL CELL,UR Many /HPF (None Seen); WBC,URINE 51-80 /HPF (0-3)
--- NOTE | 2021-03-03 21:44 | NUR ---
CALLED FOR REPORT [facility] WILL CALL BACK
--- NOTE | 2021-03-03 22:05 | NUR ---
PATIENT TRANSFERRED PER ACLS, REPORT GIVEN AT BEDSIDE TO APRIL WOODWARD
--- NOTE | 2021-03-03 22:05 | NUR ---
RN NOTES RECEIVED PT FROM ER VIA GURNEY ACCOMPANIED BY 2 ER STAFF AND TRANSFERRED TO BED VIA 2 PERSON ASSIST. BEDSIDE REPORT GIVEN BY APRIL ROA. ALL PERTINENT ADMISSION INFO REGARDING PT NOTED. PT NON VERBAL;ON ROOM AIR WITH RESPIRATIONS EVEN AND UNLABORED. COMPREHENSIVE PHYSICAL ASSESSMENT AND PATIENT CARE DONE. CALL LIGHT WITHIN REACH, SAFETY MEASURES AND ISOLATION PRECAUTION IN PLACE, WILL CONTINUE MONITOR AND ASSESS THROUGHOUT THE SHIFT. WILL CARRY OUT MD ORDERS ACCORDINGLY. EXPERIENCE SPECIALIST MADE AWARE.
--- NOTE | 2021-03-03 22:15 | NUR ---
RN NOTES NOTIFIED ONCCRISTI MERRITT ( DR. CHASE) PT NOW ADMITTED IN [facility]; RM 107; WAITING FOR FURTHER ADMITTING ORDERS. ACKNOWLEDGED. WAS ADVISED THAT YANELI FIGUEROA WILL BE DOING THE ORDERS. WILL CARRY OUT ORDERS ORDERED. HORTICULTURAL FARMWORKER MADE AWARE.
[2021-03-03 22:30] VITALS: BP 166/88
--- NOTE | 2021-03-03 23:00 | NUR ---
RN NOTES NOTED PT' BP 166/88 & HR 75 ( INITIAL V/S) TAYLER MERRITT ( DR. CHASE) INFORMED; ADVISED THAT PT HAS BEEN TAKING COREG 3.125MG BID FOR HTN. TAYLER MERRITT ORDERED COREG 6.25 BID ONE DOSE NOW AND BID STARTING JOSÉ. UNDERCUTTER OPERATOR MADE AWARE. WILL CARRY OUT ORDER. Addendum: 03/04/21 at 0033 by AMOR HARTLEY RN @0000- PT'S BP IS 153/83. WILL CONTINUE TO MONITOR
[2021-03-03] MEDS: CARVEDILOL 6.25 MG TABLET PO SCH (23:38)
[2021-03-04] VITALS: BP 153/83
[2021-03-04] MEDS ORDERED: ONDANSETRON HCL/PF 4 MG/2 ML VIAL IVP PRN
[2021-03-04] MEDS ORDERED: Z GUARD REMEDY 2 OZ OINT TP PRN
[2021-03-04] MEDS ORDERED: ACETAMINOPHEN 325 MG TABLET PO PRN
[2021-03-04] MEDS: IV LR 1000 ML 1,000 ML IV PRN ×2 (00:30→13:12)
[2021-03-04] MEDS: ENOXAPARIN SODIUM 40 MG/0.4 ML DISP.SYRIN SQ SCH ×2 (00:40→20:17)
[2021-03-04] MEDS ORDERED: CEFTRIAXONE 1 G VIAL ONE (00:58)
[2021-03-04] MEDS: CEFTRIAXONE 1 G in IV D5W 50 ML IV SCH (01:05)
[2021-03-04 04:00] VITALS: BP 152/88
--- NOTE | 2021-03-04 04:00 | NUR ---
RN NOTES NO NOTED CHANGES IN PATIENT CONDITION AT THIS TIME; PATIENT VITALS STABLE, NO SIGNS OF ACUTE RESPIRATORY DISTRESS. AM PATIENT CARE RENDERED. WILL CONTINUE TO MONITOR AND REASSESS FOR ANY CHANGES THROUGHOUT THE SHIFT.
[2021-03-04 06:28] LABS: BASOPHILS % (AUTO) 0.6 % (0.0-2.0); EOSINOPHILS % (AUTO) 2.6 % (0.0-6.0); HEMATOCRIT 37 % (33-45); HEMOGLOBIN 11.8 g/dL (11.5-14.8); LYMPHOCYTES # (AUTO) 1.6 K/uL (0.8-4.8); LYMPHOCYTES % (AUTO) 29.5 % (20.0-44.0); MEAN CORPUSCULAR HGB CONC 32 g/dl (31.0-36.0); MEAN CORPUSCULAR VOLUME 71 fL (82-100); MONOCYTES # (AUTO) 0.4 K/uL (0.1-1.30); MONOCYTES % (AUTO) 7.6 % (2.0-12.0); NEUTROPHILS # (AUTO) 3.2 K/uL (1.8-8.9); NEUTROPHILS % (AUTO) 59.7 % (43.0-81.0); PLATELET COUNT (AUTO) 278 K/uL (150-450); RED BLOOD CELL COUNT(AUTO) 5.18 MIL/uL (4.0-5.2); WHITE BLOOD COUNT (AUTO) 5.3 K/uL (4.3-11.0)
[2021-03-04 06:30] LABS: ALBUMIN 3.2 g/dL (3.4-5.0); BILIRUBIN,TOTAL 0.4 mg/dL (0.2-1.0); CALCIUM, SERUM 8.7 mg/dL (8.5-10.1); CREATININE 0.9 mg/dL (0.6-1.3); MAGNESIUM 2.1 mg/dL (1.8-2.4); POTASSIUM 3.7 mmol/L (3.5-5.1); TOTAL PROTEIN, SERUM 7.6 g/dL (6.4-8.2)
--- NOTE | 2021-03-04 06:53 | NUR ---
RN CLOSING NOTE: PATIENT REMAINS IN ROOM IN NO SIGNS OF RESPIRATORY DISTRESS, PATIENT STILL ON ROOM AIR ;TOLERATING WELL SATURATING @ >95% SP02. SAFETY MEASURES IMPLEMENTED, BED IN LOWEST POSITION, LOCKED, SIDE RAILS UP, CALL LIGHT WITHIN REACH. ALL NEEDS AND ORDERS ADDRESSED DURING THE SHIFT. IV ACCESS MAINTAINED INTACT, SECURED AND FLUSHING WELL. ALL DUE MEDS GIVEN ORDERED & SCHEDULED ; PATIENT TOLERATED WELL. PATIENT KEPT CLEAN AND COMFORTABLE WITHIN THE SHIFT. PATIENT ENDORSED TO INCOMING SHIFT RN WITH STABLE VITAL SIGN AND FOR CONTINUITY OF CARE.
[2021-03-04 07:05] LABS: THYROID STIMULATING HORMONE 2.576 uIU/mL (0.358-3.74)
--- NOTE | 2021-03-04 07:58 | NUR ---
RN OPENING NOTES PT STABLE ON RA WITH ELEVATED BP. 150/90 WILL GIVE MORNING CARDIAC MEDS. L FA #20 IV RECEIVING 100 ML/HR LR. PT CAN TOLERATE CRUSHED MEDS AND AWAITS A SPEECH CONSULT WELL AN NG TUBE INSERTION. A/O X0 AND NONVERBAL. SKIN INTACT. PT IS PN RA SAT 98%. PT ON LOWEST BED POSITION, CALL LIGHT WITHIN REACH.
[2021-03-04 08:00] VITALS: BP 150/90
[2021-03-04] MEDS: PANTOPRAZOLE 40 MG VIAL IV SCH (08:09)
[2021-03-04] MEDS: CARVEDILOL 3.125 MG TABLET PO SCH ×2 (08:09→17:15)
[2021-03-04] MEDS: CARVEDILOL 6.25 MG TABLET PO SCH ×2 (08:10→14:00)
[2021-03-04] MEDS ORDERED: ESCITALOPRAM OXALATE (10 MG) 10 MG TABLET NG SCH (09:00)
[2021-03-04] MEDS ORDERED: MEMANTINE HCL 5 MG TABLET NG SCH (09:00)
[2021-03-04 11:49] LABS: EOSINOPHILS % (MANUAL) 4 % (0-4); LYMPHOCYTES % (MANUAL) 29 % (16-48); MONOCYTES % (MANUAL) 4 % (0-11.0); NEUTROPHILS % (MANUAL) 63 (42-76)
[2021-03-04] MEDS: ENSURE ENLIVE CHOC 237 ML CAN PO SCH ×2 (13:15→17:15)
[2021-03-04] MEDS: VALSARTAN 80 MG TABLET PO SCH (14:36)
[2021-03-04 16:00] VITALS: BP 150/83
[2021-03-04] MEDS: MEMANTINE HCL 5 MG TABLET PO SCH (16:16)
--- NOTE | 2021-03-04 18:32 | NUR ---
RN CLOSING NOTES PT IS STABLE A/O X0 AND IS AWAKE AND NONVERBAL. PT GETS CRUSHED MEDS WITH APPLESAUCE PT HAS L ARM IV 20 GAUGE AND IS RECEIVING LR 100ML/HR. PT SKIN INTACT AND USING DIAPER. ON PUREE DIET. CONTINUE IV HYDRATION AND ABX. WILL CONTINUE TO MONITOR. BED ALARM PLACED
[2021-03-04 20:00] VITALS: BP 153/85
--- NOTE | 2021-03-04 20:00 | NUR ---
ms rn notes PATIENT IN BED ,NO SOB NO SIGNS OF RESPIRATORY DISTRESS, PATIENT STILL ON ROOM AIR ;TOLERATING WELL SATURATING @ 96% SP02. SAFETY MEASURES IMPLEMENTED, BED IN LOWEST POSITION, LOCKED, SIDE RAILS UP, CALL LIGHT WITHIN REACH. ALL NEEDS ATTENDED TOO . IV ACCESS MAINTAINED INTACT, SECURED AND FLUSHING WELL. WITH IVF OF LR AT 100CC/HR ORDERED INFUSING WELL . ALL DUE MEDS GIVEN ORDERED & SCHEDULED ;NO ASE NOTED . PATIENT KEPT CLEAN AND COMFORTABLE WITHIN THE SHIFT. WITH STABLE VITAL SIGN .WILL CONTINUE TO MONITOR PTS..
[2021-03-05] MEDS: IV LR 1000 ML 1,000 ML IV PRN ×2 (01:57→12:53)
[2021-03-05] MEDS: CEFTRIAXONE 1 G in IV D5W 50 ML IV SCH ×2 (01:59→23:48)
[2021-03-05 04:00] VITALS: BP 156/94
--- NOTE | 2021-03-05 06:00 | NUR ---
MS RN NOTES PTS REMAIN IN BED STABLE V/S NO SOB NO DISTRESS NOTED ,ALL NEEDS ATTENDED TOO ,REMAINS ON IVF LR AT 100CC/HR INFUSING WELL. WILL ENDORSE TO RN DAY SHIFT FOR CONTINUITY OF CARE.
[2021-03-05 06:33] LABS: BASOPHILS % (AUTO) 0.6 % (0.0-2.0); HEMATOCRIT 37 % (33-45); HEMOGLOBIN 11.7 g/dL (11.5-14.8); LYMPHOCYTES # (AUTO) 1.9 K/uL (0.8-4.8); LYMPHOCYTES % (AUTO) 49.5 % (20.0-44.0); MEAN CORPUSCULAR HGB CONC 32 g/dl (31.0-36.0); MEAN CORPUSCULAR VOLUME 71 fL (82-100); MONOCYTES # (AUTO) 0.4 K/uL (0.1-1.30); MONOCYTES % (AUTO) 9.1 % (2.0-12.0); NEUTROPHILS # (AUTO) 1.4 K/uL (1.8-8.9); NEUTROPHILS % (AUTO) 36.8 % (43.0-81.0); PLATELET COUNT (AUTO) 269 K/uL (150-450); RED BLOOD CELL COUNT(AUTO) 5.15 MIL/uL (4.0-5.2); WHITE BLOOD COUNT (AUTO) 3.9 K/uL (4.3-11.0)
[2021-03-05 06:47] LABS: CALCIUM, SERUM 8.9 mg/dL (8.5-10.1); CREATININE 0.8 mg/dL (0.6-1.3); PHOSPHORUS 3.5 mg/dL (2.5-4.9); POTASSIUM 4.1 mmol/L (3.5-5.1)
--- NOTE | 2021-03-05 07:30 | NUR ---
RN NOTE PATIENT OBSERVED IN BED AWAKE, ALERT AND ORIENTED X1, NONVERBAL, ON ROOM AIR O2 SAT OF 98%, IV SITE ON LEFT ARM PATENT INFUSING WELL LR @100CC.HR, BED WHEELS LOCK, SAFETY MEASURES OBSERVED, BED ALARM ON, CALL LIGHT WITHIN REACH, WILL CONTINUE TO MONITOR.
[2021-03-05] MEDS: ENSURE ENLIVE CHOC 237 ML CAN PO SCH ×2 (08:32→17:05)
[2021-03-05] MEDS: PANTOPRAZOLE 40 MG VIAL IV SCH (08:35)
[2021-03-05] MEDS: MEMANTINE HCL 5 MG TABLET PO SCH ×2 (08:36→17:05)
[2021-03-05] MEDS: CARVEDILOL 3.125 MG TABLET PO SCH ×2 (08:37→17:05)
[2021-03-05] MEDS: VALSARTAN 80 MG TABLET PO SCH (08:38)
[2021-03-05] MEDS: ESCITALOPRAM OXALATE (10 MG) 10 MG TABLET PO SCH (08:38)
[2021-03-05 12:00] VITALS: BP 139/75
--- NOTE | 2021-03-05 18:37 | NUR ---
RN NOTE PATIENT OBSERVED IN BED AWAKE, ALERT AND ORIENTED X1, NONVERBAL, ON ROOM AIR O2 SAT OF 98%, IV SITE ON LEFT ARM PATENT INFUSING WELL LR @100CC.HR, PATIENT ON PUREE DIET ASPIRATION PRECAUTION,ON DVT PPX NO BLEEDING AT THIS TIME BED WHEELS LOCK, SAFETY MEASURES OBSERVED, BED ALARM ON, CALL LIGHT WITHIN REACH, WILL CONTINUE TO MONITOR. WILL ENDORSE TO NOC SHIFT.
[2021-03-05 20:00] VITALS: BP 151/80
--- NOTE | 2021-03-05 20:00 | NUR ---
ms rn notes PATIENT IN BED ,NO SOB NO SIGNS OF RESPIRATORY DISTRESS, PATIENT STILL ON ROOM AIR ,TOLERATING WELL SATURATING @100% . SAFETY MEASURES IMPLEMENTED, BED IN LOWEST POSITION, LOCKED, SIDE RAILS UP, CALL LIGHT WITHIN REACH. ALL NEEDS ATTENDED TOO . IV ACCESS MAINTAINED INTACT, SECURED AND FLUSHING WELL. WITH IVF OF LR AT 100CC/HR ORDERED INFUSING WELL . ALL DUE MEDS GIVEN ORDERED & SCHEDULED ;NO ASE NOTED PATIENT KEPT CLEAN AND COMFORTABLE WITHIN THE SHIFT. WITH STABLE VITAL SIGN .WILL CONTINUE TO MONITOR PTS..
[2021-03-05] MEDS: ENOXAPARIN SODIUM 40 MG/0.4 ML DISP.SYRIN SQ SCH (20:03)
[2021-03-06] MEDS: IV LR 1000 ML 1,000 ML IV PRN ×3 (03:14→18:11)
[2021-03-06 04:00] VITALS: BP 150/80
[2021-03-06 06:32] LABS: BASOPHILS % (AUTO) 0.7 % (0.0-2.0); EOSINOPHILS % (AUTO) 5.7 % (0.0-6.0); HEMATOCRIT 34 % (33-45); HEMOGLOBIN 10.5 g/dL (11.5-14.8); LYMPHOCYTES # (AUTO) 1.4 K/uL (0.8-4.8); LYMPHOCYTES % (AUTO) 44.7 % (20.0-44.0); MEAN CORPUSCULAR HGB CONC 32 g/dl (31.0-36.0); MEAN CORPUSCULAR VOLUME 71 fL (82-100); MONOCYTES # (AUTO) 0.3 K/uL (0.1-1.30); MONOCYTES % (AUTO) 10.6 % (2.0-12.0); NEUTROPHILS # (AUTO) 1.2 K/uL (1.8-8.9); NEUTROPHILS % (AUTO) 38.3 % (43.0-81.0); PLATELET COUNT (AUTO) 244 K/uL (150-450); WHITE BLOOD COUNT (AUTO) 3.2 K/uL (4.3-11.0)
[2021-03-06 07:04] LABS: CALCIUM, SERUM 8.6 mg/dL (8.5-10.1); CREATININE 0.8 mg/dL (0.6-1.3); MAGNESIUM 1.9 mg/dL (1.8-2.4); PHOSPHORUS 2.9 mg/dL (2.5-4.9); POTASSIUM 3.9 mmol/L (3.5-5.1)
[2021-03-06] MEDS: PANTOPRAZOLE 40 MG TABLET.DR PO SCH (07:35)
[2021-03-06] MEDS: ENSURE ENLIVE CHOC 237 ML CAN PO SCH ×2 (07:36→17:33)
--- NOTE | 2021-03-06 07:48 | NUR ---
RN NOTES RECEIVED PATIENT IN BED, AWAKE, ALERT X1, NON-VERBAL BUT RESPONSIVE. UNABLE TO FOLLOW COMMANDS. BREATHING EVEN AND UNLABORED. NO SHORTNESS OF BREATH NOTED. PATIENT CURRENTLY ON ROOM AIR WITH HOB ELEVATED 45 DEGREES. SKIN IS WARM AND DRY TO TOUCH. AFEBRILE. PATIENT APPEARS TO HAVE SWOLLEN RIGHT HAND RELATED TO IV INFILTRATION. PATIENT WITH NEW IV ACCESS ON LEFT WRIST, PATENT. RIGHT ARM ELEVATED. PATIENT CURRENTLY ON IV HYDRATION. CALL LIGHT PLACED WITHIN REACH.
[2021-03-06] MEDS: ESCITALOPRAM OXALATE (10 MG) 10 MG TABLET PO SCH (09:05)
[2021-03-06] MEDS: MEMANTINE HCL 5 MG TABLET PO SCH ×2 (09:05→17:32)
[2021-03-06] MEDS: CARVEDILOL 3.125 MG TABLET PO SCH ×2 (09:06→17:33)
[2021-03-06] MEDS: VALSARTAN 80 MG TABLET PO SCH (09:07)
[2021-03-06 12:00] VITALS: BP 133/79
[2021-03-06] MEDS: MEROPENEM 1 G in IV NS 0.9% 100 ML IV SCH ×2 (12:15→20:01)
--- NOTE | 2021-03-06 17:49 | NUR ---
RN NOTES GAVE REPORT TO THIRD FLOOR, ALHAJI, FOR TRANSFER OF CONTINUITY OF CARE.
[2021-03-06 18:31] VITALS: BP 152/95
--- NOTE | 2021-03-06 18:31 | NUR ---
MS RN CLOSING NOTES PT TRANSFERRED FROM [facility] RM 107 TO ROOM 308-1 VIA HER BED AT 1820 ACCOMPANIED BY [facility] RN AND ENGINE REPAIRER PRODUCTION. PATIENT IS AWAKE, ALERT X1, NON-VERBAL. UNABLE TO FOLLOW COMMANDS. V/S TAKEN AND RECORDED. ON ROOM AIR, BREATHING EVEN AND UNLABORED, NO SOB NOTED. IV ACCESS ON LEFT WRIST G#22 INTACT AND PATENT, IVF OF LR AT 100ML/HR INFUSING WELL., NO S/S OF INFILTRATION AT SITE NOTED. SKIN IS WARM AND DRY TO TOUCH. AFEBRILE. SAFETY MEASURES IMPLEMENTED: BED PLACED IN LOWEST LOCKED POSITION WITH SR UP X2. HOB ELEVATED 45 DEGREES. BED ALARM ON. CALL LIGHT W/I EASY REACH. WILL ENDORSE TO MORTUARY BEAUTICIAN NURSE FOR DONG. CALL LIGHT PLACED WITHIN REACH.
--- NOTE | 2021-03-06 19:03 | NUR ---
RN NOTES PATIENT FOR CT OF CHEST, ABDOMEN AND PELVIS WITH CONTRAST TOMORROW. TELEPHONE CONSENT OBTAINED FROM NUZHAT ANDREAKEMAR ESPAÑA AT [facility] # [phone] AND VERIFIED BY ANOTHER RN CHIOMA. NPO EXCEPT MEDS WILL BE ENFORCED POST MIDNIGHT. PT ALSO FOR STOOL OB COLLECTION. WILL ENDORSE TO HOT BREAD BAKER NURSE.
--- NOTE | 2021-03-06 19:45 | NUR ---
MS RN OPENING RECEIVED PATIENT IN BED, AWAKE BUT NON-VERBAL. NO S/S OF APPARENT DISTRESS. NOT EXHIBITING PAIN VIA FLACC. PATIENT HAS IV LR RUNNING @ 100ML/HR. SAFETY IN PLACE. WILL CONTINUE TO MONITOR.
[2021-03-06 20:00] VITALS: BP 148/90
[2021-03-06] MEDS: ENOXAPARIN SODIUM 40 MG/0.4 ML DISP.SYRIN SQ SCH (21:21)
[2021-03-07] MEDS: IV LR 1000 ML 1,000 ML IV PRN (03:57)
[2021-03-07] MEDS: MEROPENEM 1 G in IV NS 0.9% 100 ML IV SCH ×3 (04:00→19:57)
[2021-03-07 06:06] LABS: BASOPHILS % (AUTO) 0.8 % (0.0-2.0); EOSINOPHILS % (AUTO) 5.2 % (0.0-6.0); HEMATOCRIT 40 % (33-45); HEMOGLOBIN 12.8 g/dL (11.5-14.8); LYMPHOCYTES % (AUTO) 44.1 % (20.0-44.0); MEAN CORPUSCULAR HGB CONC 32 g/dl (31.0-36.0); MEAN CORPUSCULAR VOLUME 72 fL (82-100); MONOCYTES # (AUTO) 0.4 K/uL (0.1-1.30); MONOCYTES % (AUTO) 9.6 % (2.0-12.0); NEUTROPHILS # (AUTO) 1.8 K/uL (1.8-8.9); NEUTROPHILS % (AUTO) 40.3 % (43.0-81.0); PLATELET COUNT (AUTO) 317 K/uL (150-450); RED BLOOD CELL COUNT(AUTO) 5.54 MIL/uL (4.0-5.2); WHITE BLOOD COUNT (AUTO) 4.4 K/uL (4.3-11.0)
[2021-03-07 06:34] LABS: CALCIUM, SERUM 9.6 mg/dL (8.5-10.1); CREATININE 0.9 mg/dL (0.6-1.3); MAGNESIUM 2.1 mg/dL (1.8-2.4); PHOSPHORUS 3.5 mg/dL (2.5-4.9); POTASSIUM 3.8 mmol/L (3.5-5.1)
--- NOTE | 2021-03-07 06:45 | NUR ---
ms rn closing patient in bed with eyes closed, easy to arouse. non-verbal. patient has no apparent distress, tolerating room air. not exhibiting pain at this time via flacc. IV LR running @100ml/hr. all needs attended, all sched meds administered. safety in place. will endorse care to morning shift rn for continuation of care.
--- NOTE | 2021-03-07 07:18 | NUR ---
MS RN OPENING NOTE RECEIVED PATIENT IN BED RESTING. PATIENT IS NONVERBAL, BUT AROUSABLE TO VERBAL AND TACTILE STIMULI. PATIENT IS BREATHING EVENLY AND NONLABORED ON ROOM AIR. NO SIGNS OF DISTRESS. NO SIGNS OF PAIN AT THIS TIME. PATIENT HAS IV ACCESS ON L WRIST # 22 GAUGE RUNNING LR @ 100ML/HR. PATENT AND INTACT. SAFETY AND ASPIRATION PRECAUTIONS TO BE MAINTAINED THROUGHOUT SHIFT, BED LOW LOCKED SIDE RAILS UP AND CALL LIGHT WITHIN REACH. WILL CONTINUE TO MONITOR
[2021-03-07 08:00] VITALS: BP 175/89
[2021-03-07 08:06] LABS: IMMUNOGLOBULIN A, SERUM 374 mg/dL (64-422); IMMUNOGLOBULIN G, SERUM 1319 mg/dL (586-1602); IMMUNOGLOBULIN M, SERUM 53 mg/dL (26-217)
[2021-03-07] MEDS: ESCITALOPRAM OXALATE (10 MG) 10 MG TABLET PO SCH (08:16)
[2021-03-07] MEDS: VALSARTAN 80 MG TABLET PO SCH (08:16)
[2021-03-07] MEDS: MEMANTINE HCL 5 MG TABLET PO SCH ×2 (08:16→16:08)
[2021-03-07] MEDS: PANTOPRAZOLE 40 MG TABLET.DR PO SCH (08:16)
[2021-03-07] MEDS: CARVEDILOL 3.125 MG TABLET PO SCH ×2 (08:17→16:08)
[2021-03-07] MEDS: ENSURE ENLIVE CHOC 237 ML CAN PO SCH ×2 (08:20→16:48)
[2021-03-07] MEDS ORDERED: IV NS 0.9% 250 ML IV ONE (09:42)
[2021-03-07] MEDS ORDERED: IOHEXOL-300 100 ML VIAL IV ONE (09:42)
[2021-03-07] MEDS ORDERED: CT SWABBABLE VALVE TRANS SET 1 EA INFUS.SET MC ONE (09:43)
--- NOTE | 2021-03-07 13:29 | NUR ---
RN NOTE CT RESULTS CAME BACK, NOTIFIED WITH NEW ORDERS FOR I&O CATHETERIZATION AND FLEET OIL ENEMA AND POSSIBLE DIGITAL DECOMPACTION. WILL CONTINUE TO MONITOR
[2021-03-07] MEDS ORDERED: MINERAL OIL 133 ML (PYXIS) 1 EA ENEMA RC ONE ×2 (13:30→20:00)
[2021-03-07 14:07] LABS: *ANA ANTI-CENTROMERE B AB <0.2 AI (0.0-0.9); *ANA ANTI-DNA(DS) AB, QN <1 IU/mL (0-9); *ANA ANTI-JO-1 <0.2 AI (0.0-0.9); *ANA ANTICHROMATIN ANTIBODY <0.2 AI (0.0-0.9); *ANA RNP ANTIBODIES <0.2 AI (0.0-0.9); *ANA SJOGREN'S ANTI-SS-A <0.2 AI (0.0-0.9); *ANA SJOGREN'S ANTI-SS-B <0.2 AI (0.0-0.9); *ANAANTI-SCLERODERMA-70 AB <0.2 AI (0.0-0.9); *ANASMITH AB <0.2 AI (0.0-0.9)
[2021-03-07 16:00] VITALS: BP 143/81
--- NOTE | 2021-03-07 18:29 | NUR ---
MS RN CLOSING NOTE PATIENT IN BED RESTING. PATIENT IS NONVERBAL, BUT AROUSABLE TO VERBAL AND TACTILE STIMULI. PATIENT IS BREATHING EVENLY AND NONLABORED ON ROOM AIR. NO SIGNS OF DISTRESS. NO SIGNS OF PAIN AT THIS TIME. PATIENT HAS IV ACCESS ON L WRIST # 22 GAUGE RUNNING LR @ 100ML/HR. PATENT AND INTACT. PATIENT HAD FECAL DIGITAL DECOMPACTION MODERATE AMOUNT OF STOOL REMOVED, I & O DONE 700 ML REMOVED. ALL MEDICATION GIVEN ORDERED. SAFETY AND ASPIRATION PRECAUTIONS TO BE MAINTAINED THROUGHOUT SHIFT, BED LOW LOCKED SIDE RAILS UP AND CALL LIGHT WITHIN REACH. WILL ENDORSE TO ONCOMING SHIFT
[2021-03-07] MEDS ORDERED: MAGNESIUM CITRATE 296 ML BOTTLE PO ONE (19:30)
--- NOTE | 2021-03-07 19:32 | NUR ---
RN OPENING NOTES PATIENT IN BED RESTING. PATIENT IS NONVERBAL, BUT AROUSABLE TO VERBAL AND TACTILE STIMULI. PATIENT IS BREATHING EVENLY AND NONLABORED ON ROOM AIR. NO SIGNS OF DISTRESS. NO SIGNS OF PAIN AT THIS TIME. PATIENT HAS IV ACCESS ON L WRIST # 22 GAUGE RUNNING LR @ 100ML/HR. PATENT AND INTACT. SAFETY AND ASPIRATION PRECAUTIONS TO BE MAINTAINED THROUGHOUT SHIFT, BED LOW LOCKED SIDE RAILS UP AND CALL LIGHT WITHIN REACH. WILL CONTINUE OT MONITOR.
[2021-03-07] MEDS: BISACODYL SUPP (10 MG) 10 MG/SUPP.RECT SUPP.RECT RC SCH (19:46)
[2021-03-07] MEDS: ENOXAPARIN SODIUM 40 MG/0.4 ML DISP.SYRIN SQ SCH (20:06)
[2021-03-07 20:26] VITALS: BP 155/75
[2021-03-08] MEDS: MEROPENEM 1 G in IV NS 0.9% 100 ML IV SCH ×2 (03:55→11:41)
[2021-03-08] MEDS: IV LR 1000 ML 1,000 ML IV PRN (04:02)
[2021-03-08 06:15] LABS: BASOPHILS % (AUTO) 0.8 % (0.0-2.0); EOSINOPHILS % (AUTO) 4.4 % (0.0-6.0); HEMATOCRIT 34 % (33-45); HEMOGLOBIN 10.9 g/dL (11.5-14.8); LYMPHOCYTES # (AUTO) 1.8 K/uL (0.8-4.8); LYMPHOCYTES % (AUTO) 38.4 % (20.0-44.0); MEAN CORPUSCULAR HGB CONC 32 g/dl (31.0-36.0); MEAN CORPUSCULAR VOLUME 71 fL (82-100); MONOCYTES # (AUTO) 0.5 K/uL (0.1-1.30); MONOCYTES % (AUTO) 10.6 % (2.0-12.0); NEUTROPHILS # (AUTO) 2.2 K/uL (1.8-8.9); NEUTROPHILS % (AUTO) 45.8 % (43.0-81.0); PLATELET COUNT (AUTO) 245 K/uL (150-450); RED BLOOD CELL COUNT(AUTO) 4.76 MIL/uL (4.0-5.2); WHITE BLOOD COUNT (AUTO) 4.7 K/uL (4.3-11.0)
[2021-03-08 06:28] LABS: *SPE A/G RATIO 0.9 (0.7-1.7); *SPE ALPHA-1-GLOBULIN 0.2 g/dL (0.0-0.4); *SPE ALPHA-2-GLOBULIN 0.7 g/dL (0.4-1.0); *SPE BETA GLOBULIN 1.1 g/dL (0.7-1.3); *SPE M-SPIKE Not Observed g/dL (Not Observed)
--- NOTE | 2021-03-08 06:37 | NUR ---
CLOSING NOTES PATIENT IN BED RESTING. PATIENT IS NONVERBAL, BUT AROUSABLE TO VERBAL AND TACTILE STIMULI. PATIENT IS BREATHING EVENLY AND NONLABORED ON ROOM AIR. NO SIGNS OF DISTRESS. NO SIGNS OF PAIN AT THIS TIME. PATIENT HAS IV ACCESS ON L WRIST # 22 GAUGE RUNNING LR @ 100ML/HR. PATENT AND INTACT. SAFETY AND ASPIRATION PRECAUTIONS TO BE MAINTAINED THROUGHOUT SHIFT, BED LOW LOCKED SIDE RAILS UP AND CALL LIGHT WITHIN REACH. WILL ENDORSE CARE TO DAY SHIFT NURSE.
[2021-03-08 06:52] LABS: CALCIUM, SERUM 8.8 mg/dL (8.5-10.1); CREATININE 0.8 mg/dL (0.6-1.3); MAGNESIUM 2.2 mg/dL (1.8-2.4); PHOSPHORUS 2.8 mg/dL (2.5-4.9); POTASSIUM 3.4 mmol/L (3.5-5.1)
--- NOTE | 2021-03-08 07:38 | NUR ---
RN OPENING NOTE PT AWAKE IN BED RESTING. ON RA WITH NO SOB OR RESPIRATORY DISTRESS PRESENT. NONVERBAL AND UNABLE TO ASSESS ORIENTATION. NO SYNTHETIC DEPARTMENT SUPERVISOR PRESENT. NO EDEMA PRESENT. PT IS BEDBOUND WITH INCONTINENCE. DIAPER PRESENT. SKIN IS INTACT. IV PRESENT ON L WRIST 22G AND FLUSHES WELL. SAFETY MEASURES IN PLACE. SIDE RAILS RAISED. BED LOWERED. CALL LIGHT WITHIN REACH. WILL CONTINUE TO MONITOR.
[2021-03-08 08:00] VITALS: BP 160/95
[2021-03-08] MEDS: MEMANTINE HCL 5 MG TABLET PO SCH (09:01)
[2021-03-08] MEDS: BISACODYL SUPP (10 MG) 10 MG/SUPP.RECT SUPP.RECT RC SCH (09:01)
[2021-03-08] MEDS: VALSARTAN 80 MG TABLET PO SCH (09:01)
[2021-03-08] MEDS: PANTOPRAZOLE 40 MG TABLET.DR PO SCH (09:01)
[2021-03-08 09:02] VITALS: BP 160/95
[2021-03-08] MEDS: CARVEDILOL 3.125 MG TABLET PO SCH (09:02)
[2021-03-08] MEDS: ENSURE ENLIVE CHOC 237 ML CAN PO SCH (09:02)
[2021-03-08] MEDS: ESCITALOPRAM OXALATE (10 MG) 10 MG TABLET PO SCH (09:02)
[2021-03-08] MEDS ORDERED: POTASSIUM CHLORIDE 20 MEQ TAB.PRT.SR PO SCH (09:30)
--- NOTE | 2021-03-08 15:43 | NUR ---
INCIDENT RESPONSE ANALYST NOTE PT DISCHARGED TO [facility]. BELONGINGS CHECKED AND GIVEN TO EMT. IV LINE TO BE BROUGHT WITH PT. IV ABX ORDERED POST D/C. ID BAND REMOVED. EXITCARE EDUCATION UTILIZED AND GIVEN TO EMT. SKIN IS INTACT. REPORT GIVEN TO JAZZ HCEN. PRESCRIPTIONS CHECKED AND MED RECON IN EDUCATION PACKET. PT TRANSPORTED OUT OF HOSPITAL VIA AMBULANCE WITH EMT.
== END 2021-03-08 15:40 | DRG 871 ==
LOC: ER 13:38 → MEDSG1 21:35 → MED 03-06 17:45
PROVIDERS: ADMIT Nurse Practitioner Acute Care; ATTEND Internal Medicine
DX: A41.9 Sepsis, unspecified organism (principal); R53.2 Functional quadriplegia; N39.0 Urinary tract infection, site not specified; D61.818 Other pancytopenia; D68.9 Coagulation defect, unspecified; Z16.12 Extended spectrum beta lactamase (ESBL) resistance; G93.49 Other encephalopathy; E87.0 Hyperosmolality and hypernatremia; E86.0 Dehydration; E86.1 Hypovolemia; F03.90 Unspecified dementia, unspecified severity, without behavioral disturbance, psychotic disturbance, mood disturbance, and anxiety; F32.9 Major depressive disorder, single episode, unspecified; I25.10 Atherosclerotic heart disease of native coronary artery without angina pectoris; I10 Essential (primary) hypertension; M19.90 Unspecified osteoarthritis, unspecified site; K21.9 Gastro-esophageal reflux disease without esophagitis; Z86.16 Personal history of COVID-19; B96.20 Unspecified Escherichia coli [E. coli] as the cause of diseases classified elsewhere; R33.8 Other retention of urine; R62.7 Adult failure to thrive; K56.41 Fecal impaction; Z87.440 Personal history of urinary (tract) infections; Z20.822 Contact with and (suspected) exposure to COVID-19; M54.12 Radiculopathy, cervical region
CPT/HCPCS: 36415; 70450-TC; 71045-TC; 71260-TC; 80048-TC; 80053-TC; 80061-TC; 80076-TC; 81001; 82728-TC; 82784; 83540-TC; 83605-TC; 83735-TC; 84100-TC; 84155; 84165; 84443-TC; 84484-TC; 85025-TC; 85730-TC; 86225; 86235; 86334; 86431-TC; 86706; 86803; 87040-TC; 87081-TC; 87086-TC; 87186-TC; 87340; 92526; 92611-TC; 97112-TC; 97116-TC; 97530-TC; C9113; G0378; J0696; J1650; J2185; J7030; J7050; J7060; J7120; Q9967; U0003

== ENCOUNTER 2021-06-25 20:53 | Inpatient (IN) | payer MEDICARE, OTHER ==
[~2021-06-25] VITALS: Ht 152.4 cm; Wt 49.9 kg
[~2021-06-25 20:53] MED LIST changes: -AMLO10TA4 PO; -FAMO20TA8 PO; -LORA0.5T PO; +OMEP20TA5 PO
--- NOTE | 2021-06-25 21:30 | NUR ---
BIBPA FROM SNF C/O SWALLOW/ SORE THROAT X 2 DAYS PT ALERT NON VERBAL RR EVEN UNLABORED NO SOB NOTED. PT CONNECTED TO CARDIAC AND POX MONITOR.
[2021-06-25 22:08] LABS: BASOPHILS % (AUTO) 0.1 % (0.0-2.0); EOSINOPHILS % (AUTO) 0.2 % (0.0-6.0); HEMATOCRIT 36 % (33-45); LYMPHOCYTES # (AUTO) 0.9 K/uL (0.8-4.8); LYMPHOCYTES % (AUTO) 5.8 % (20.0-44.0); MEAN CORPUSCULAR HGB CONC 31 g/dl (31.0-36.0); MEAN CORPUSCULAR VOLUME 72 fL (82-100); MONOCYTES # (AUTO) 0.7 K/uL (0.1-1.30); MONOCYTES % (AUTO) 4.1 % (2.0-12.0); NEUTROPHILS # (AUTO) 14.6 K/uL (1.8-8.9); NEUTROPHILS % (AUTO) 89.8 % (43.0-81.0); PLATELET COUNT (AUTO) 294 K/uL (150-450); RED BLOOD CELL COUNT(AUTO) 4.96 MIL/uL (4.0-5.2); WHITE BLOOD COUNT (AUTO) 16.3 K/uL (4.3-11.0)
--- NOTE | 2021-06-25 22:30 | NUR ---
CALLED LAB FOR PENDING RESULTS
[2021-06-25] MEDS ORDERED: CT SWABBABLE VALVE TRANS SET 1 EA INFUS.SET MC ONE (22:46)
[2021-06-25] MEDS ORDERED: IV NS 0.9% 250 ML IV ONE (22:46)
[2021-06-25] MEDS ORDERED: IOHEXOL-300 100 ML VIAL IV ONE (22:46)
--- NOTE | 2021-06-25 23:07 | NUR ---
IV STARTED ON THE LEFT AC 20G S/L PT TOLERATED WELL.
--- NOTE | 2021-06-25 23:09 | NUR ---
PER DR VALLADARES OKAY TO DO CT SCAN AT THIS TIME.
--- NOTE | 2021-06-25 23:12 | NUR ---
PT TAKEN TO CT VIA BALTAZAR
--- NOTE | 2021-06-25 23:31 | NUR ---
PT BACK FROM CT
[2021-06-26 00:08] LABS: BILIRUBIN,TOTAL 0.9 mg/dL (0.2-1.0); CALCIUM, SERUM 8.4 mg/dL (8.5-10.1); CREATININE 1.2 mg/dL (0.6-1.3); POTASSIUM 3.3 mmol/L (3.5-5.1); TOTAL PROTEIN, SERUM 7.2 g/dL (6.4-8.2)
[2021-06-26] MEDS ORDERED: PIPERACILLIN /TAZOBACTAM 3.375 G in IV D5W 50 ML IV ONE (00:30)
--- NOTE | 2021-06-26 00:34 | NUR ---
BLOOD CULTURES COLLECTED
[2021-06-26] MEDS ORDERED: PIPERACILLIN /TAZOBACTAM 3.375 G VIAL IV ONE (00:45)
[2021-06-26 00:49] LABS: LYMPHOCYTES % (MANUAL) 6 % (16-48); MONOCYTES % (MANUAL) 4 % (0-11.0); NEUTROPHILS % (MANUAL) 90 (42-76)
[2021-06-26] MEDS ORDERED: MAG HYDROX/AL HYDROX/SIMETH 30 ML UDC PO PRN (01:30)
[2021-06-26] MEDS ORDERED: ACETAMINOPHEN 325 MG TABLET PO PRN (01:30)
[2021-06-26] MEDS ORDERED: Z GUARD REMEDY 4 OZ OINT TP PRN (01:30)
[2021-06-26] MEDS ORDERED: IV NS 0.9% 1,000 ML IV PRN (01:30)
[2021-06-26] MEDS ORDERED: ONDANSETRON HCL/PF 4 MG/2 ML VIAL IVP PRN (01:30)
--- NOTE | 2021-06-26 01:58 | NUR ---
MRSA SWAB COLLECTED AND SENT TO LAB. PATIENT'S BELONGINGS LIST DONE.
--- NOTE | 2021-06-26 03:58 | NUR ---
ROOM 105
--- NOTE | 2021-06-26 04:08 | NUR ---
REPORT GIVEN APRIL CORDERO FOR DONG
--- NOTE | 2021-06-26 04:26 | NUR ---
PT TRANSPORTED TO UNIT ON [facility] WITH EMT. PT IS IN STABLE CONDITION FOR TRANSPORT. NAD NOTED DURING TRANSPORT.
[2021-06-26 04:30] VITALS: BP 150/80
[2021-06-26] MEDS: IV 1/2NS 1000 ML 1,000 ML IV PRN (05:00)
--- NOTE | 2021-06-26 06:00 | NUR ---
Patient arrived to [facility] at 0420 A&Ox0 non-verbal. No signs of distress, but patient does grind teeth and pulls away when L side of swollen face is touched d/t probable discomfort. Tele monitor applied SR 80s, 90s. Bedbound. Open wound to L knee, picture in chart. wound care consult requested. Regular diet pureed NTL. LAC #20G 1/2NS at 75cc/hr. Patient can reposition self in bed but cannot ambulate. Notable swelling to L neck and face, lung sounds clear, bowel sound normoactive x4, urine clear and yellow incontinent. Moves extremities evenly. All needs anticipated by staff. Initial VS 154/81, HR 88, O2 sat 99% on RA, temp 98.1, RR 18. Weight 108.
--- NOTE | 2021-06-26 07:30 | NUR ---
MENAGERIE CARETAKER OPENING NOTES RECEIVED PATIENT IN BED RESTING, AWAKE. PATIENT IS NON VERBAL. NO S/S OF PAIN NOTED AT THIS TIME. NO DISTRESS OR SHORTNESS OF BREATH NOTED, ON ROOM AIR. TOLERATING WELL. ON TELE MONITOR SHOWING SR HR AT 90'S. IV ACCESS ON LAC #20G, INTACT AND PATENT. ONGOING 1/2 NS AT 75 CC/HR, INFUSING WELL, NO S/SX OF INFILTRATION NOTED. FALL AND SAFETY MEASURES IN PLACE, BED ALARM ON, BED IN LOW AND LOCKED POSITION, CALL LIGHT AND TABLE WITHIN EASY REACH, SIDE RAILS UP X2. WILL CONTINUE TO MONITOR PATIENT ACCORDINGLY.
[2021-06-26] MEDS ORDERED: FERR325T23 PO (08:28)
[2021-06-26] MEDS ORDERED: DIPH25CA51 PO (08:28)
[2021-06-26] MEDS ORDERED: PANT40TA2 PO (08:28)
[2021-06-26] MEDS: PIPERACILLIN /TAZOBACTAM 3.375 G in IV D5W 100 ML IV SCH ×2 (09:50→17:10)
[2021-06-26] MEDS: POTASSIUM CL. PREMIX PERIPHER. 50 ML IV SCH ×2 (11:05→12:00)
--- NOTE | 2021-06-26 18:38 | NUR ---
LUMBER TRIMMER CLOSING NOTES PATIENT IN BED RESTING, AWAKE. PATIENT IS NON VERBAL. NO S/S OF PAIN NOTED AT THIS TIME. NO DISTRESS OR SHORTNESS OF BREATH NOTED, ON ROOM AIR. TOLERATING WELL. ON TELE MONITOR SHOWING SR HR AT 90'S. IV ACCESS ON LAC #20G, INTACT AND PATENT. ONGOING 1/2 NS AT 75 CC/HR, INFUSING WELL, NO S/SX OF INFILTRATION NOTED. FALL AND SAFETY MEASURES IN PLACE, BED ALARM ON, BED IN LOW AND LOCKED POSITION, CALL LIGHT AND TABLE WITHIN EASY REACH, SIDE RAILS UP X2. ALL NEEDS ATTENDED AND MET, DUE MEDS GIVEN ORDERED. WILL ENDORSE TO ONCOMING SHIFT FOR DONG.
[2021-06-26 20:00] VITALS: BP 149/81
--- NOTE | 2021-06-26 20:00 | NUR ---
BAND SCROLL SAW OPERATOR NOTE PT IN BED WITH EYES OPEN. NON VERBAL. NO DISTRESS OR DISCOMFORT NOTED. NO S/S OF PAIN NOTED. INFUSING 1/2 NS AT 75 ML/HR, NO S/S OF INFILTRATION NOTED. PT ON TELE SR HR 92. CONTINUE TO MONITOR HER.
[2021-06-27] VITALS: BP 130/82
[2021-06-27] MEDS: PIPERACILLIN /TAZOBACTAM 3.375 G in IV D5W 100 ML IV SCH ×3 (01:40→17:23)
[2021-06-27 04:00] VITALS: BP 126/77
--- NOTE | 2021-06-27 04:06 | NUR ---
FLOW SPECIALIST JOSI RODRÍGUEZ FROM LAB CALLED AND INFORMED ME THAT BLOOD CX RESULT CAME WITH GRAM POSITIVE COCCI IN CLUSTERS, DR WILSON INFORMED AND RECEIVED NEW ORDER. ORDER NOTED AND CARRIED OUT.
[2021-06-27] MEDS ORDERED: VANCOMYCIN HCL 0.75 GM in IV D5W 250 ML IV ONE (04:30)
[2021-06-27] MEDS ORDERED: VANCOMYCIN 1 GM VIAL ONE (04:47)
--- NOTE | 2021-06-27 06:36 | NUR ---
MARINE FIREFIGHTER NOTE PT IN BED ASLEEP, AROUSABLE NO DISTRESS OR DISCOMFORT NOTED. ALL NEEDS ATTENDED. WILL ENDORSE TO DAY SHIFT NURSE FOR CONTINUE TO CARE.
[2021-06-27 07:08] LABS: CALCIUM, SERUM 8.7 mg/dL (8.5-10.1); MAGNESIUM 3.1 mg/dL (1.8-2.4); PHOSPHORUS 2.7 mg/dL (2.5-4.9); POTASSIUM 5.5 mmol/L (3.5-5.1)
--- NOTE | 2021-06-27 07:58 | NUR ---
RN OPENING NOTES RECEIVED PATIENT IN BED AWAKE. PATIENT IS NON VERBAL. BREATHING EVEN AND ONLABORED. NO ACUTE DISTRESS NOTED AT THE TIME., ON ROOM AIR. TOLERATING WELL. ON TELE MONITOR SHOWING SR HR AT 80'S. IV ACCESS ON LAC #20G, INTACT AND PATENT. ONGOING 1/2 NS AT 75 CC/HR, INFUSING WELL, NO S/SX OF INFILTRATION NOTED. FALL AND SAFETY MEASURES IN PLACE, BED ALARM ON, BED IN LOW AND LOCKED POSITION, CALL LIGHT WITHIN REACH OF PATIENT, SIDE RAILS UP X2. WILL CONTINUE TO MONITOR PATIENT ACCORDINGLY.
[2021-06-27 08:00] VITALS: BP 140/86
[2021-06-27 08:34] LABS: BASOPHILS # (AUTO) 0.1 K/uL (0.0-0.2); BASOPHILS % (AUTO) 0.3 % (0.0-2.0); EOSINOPHILS % (AUTO) 0.3 % (0.0-6.0); HEMATOCRIT 38 % (33-45); HEMOGLOBIN 11.6 g/dL (11.5-14.8); LYMPHOCYTES # (AUTO) 1.3 K/uL (0.8-4.8); LYMPHOCYTES % (AUTO) 6.1 % (20.0-44.0); MEAN CORPUSCULAR HGB CONC 31 g/dl (31.0-36.0); MEAN CORPUSCULAR VOLUME 73 fL (82-100); MONOCYTES # (AUTO) 0.6 K/uL (0.1-1.30); MONOCYTES % (AUTO) 2.8 % (2.0-12.0); NEUTROPHILS % (AUTO) 90.5 % (43.0-81.0); PLATELET COUNT (AUTO) 289 K/uL (150-450); RED BLOOD CELL COUNT(AUTO) 5.21 MIL/uL (4.0-5.2)
--- NOTE | 2021-06-27 09:00 | NUR ---
WOUND CARE CONSULT: REVIEWED CHART, NURSING DOCUMENTATION AND PHOTOS WHICH INDICATE SWELLING OF FACE/NECK AND LEFT KNEE DRY ABRASION/SCAR, PRESENT ON ADMISSION. DEFER TO PMD FOR FACE/NECK SWELLING. DISCUSSED SKIN PROTECTION WITH NURSING STAFF. MD IN AGREEMENT WITH PLAN OF CARE.
[2021-06-27 12:00] VITALS: BP 150/88
[2021-06-27 16:00] VITALS: BP 122/82
[2021-06-27] MEDS: VANCOMYCIN 500 MG in IV D5W 100ml IV SCH (17:02)
[2021-06-27] MEDS: IV 1/2NS 1000 ML 1,000 ML IV PRN (17:23)
--- NOTE | 2021-06-27 18:42 | NUR ---
RN CLOSING NOTES PATIENT IN BED RESTING, AWAKE. PATIENT IS NON VERBAL. PATIENT REMAIN IN STABLE CONDITION THROUGHOUT SHIFT. NO SIGNIFICANT CHANGES THROUGHOUT SHIFT. PATIENT REMAINS ON ROOM AIR, TOLERATING WELL WITH SAT OF 96%. BREATHING EVEN AND UNLABORED. NO DISTRESS OR SHORTNESS OF BREATH NOTED. IV ACCESS ON RIGHT WRIST #20, FLUSHED WELL, PATENT AND INTACT AND LAC #20G, INTACT AND PATENT ONGOING 1/2 NS AT 75 CC/HR, INFUSING WELL, NO S/SX OF INFILTRATION NOTED. ALL DUE MEDS GIVEN ORDERED, TOLERATED WELL. KEPT PATIENT DRY, CLEAN AND COMFORTABLE. WOUND CARE RENDERED, TOLERATED WELL. SAFETY MEASURES IN PLACE, BED ALARM ON, BED IN LOW AND LOCKED POSITION, CALL LIGHT WITHIN REACH OF PATIENT, SIDE RAILS UP X2. ALL NEEDS ATTENDED WILL ENDORSE TO ONCOMING SHIFT FOR CONTINUITY OF CARE.
--- NOTE | 2021-06-27 19:50 | NUR ---
RN OPENING NOTES, RECEIVED PATIENT IN BED ALERT X0, AWAKE, NON VERBAL. NO SOB, BREATHING EVEN AND ON LABORED. NO FACIAL GRIMACING, NO ACUTE DISTRESS NOTED. PT IS ON ROOM AIR. IV ACCESS ON LAC #20G, INTACT AND PATENT. ONGOING 1/2 NS AT 75 CC/HR AND TOLERATED WELL. NO S/S OF INFILTRATION. PER DRPaulineS ORDER, APPLY WARM WET COMPRESSION ON THE LEFT SIDE OF THE FACE AND PT TOLERATED WELL. ALL SAFETY MEASURES IN PLACE, BED IN LOW AND LOCKED POSITION, CALL LIGHT WITHIN REACH OF PATIENT, SIDE RAILS UP X2. WILL CONTINUE TO MONITOR
[2021-06-27 20:00] VITALS: BP 152/74
[2021-06-28] VITALS (7 sets, daily range): BP systolic 139–186; BP diastolic 69–94
[2021-06-28] MEDS ORDERED: hydrALAZINE HCL IV 20 MG VIAL IV PRN (02:00)
[2021-06-28] MEDS: PIPERACILLIN /TAZOBACTAM 3.375 G in IV D5W 100 ML IV SCH ×3 (02:07→19:58)
--- NOTE | 2021-06-28 02:30 | NUR ---
RN NOTES: PT'S BP- 186/94, PULSE- 75. NOTIFIED DR. LAROSE. ORDER- HYDRALAZINE 10 MG/0.5ML IVP Q6H, GIVE IF SBP GREATER THEN 160. ORDER NOTED AND CARRIED OUT. HYDRALAZINE IV PUSH GIVEN AND PT TOLERATED WELL. NO S/S OF HYPER/HYPOTENSION. WILL CONTINUE TO MONITOR
[2021-06-28] MEDS: VANCOMYCIN 500 MG in IV D5W 100ml IV SCH (05:10)
[2021-06-28 06:37] LABS: BASOPHILS # (AUTO) 0.1 K/uL (0.0-0.2); BASOPHILS % (AUTO) 0.3 % (0.0-2.0); EOSINOPHILS % (AUTO) 1.5 % (0.0-6.0); HEMATOCRIT 33 % (33-45); HEMOGLOBIN 10.5 g/dL (11.5-14.8); LYMPHOCYTES # (AUTO) 1.1 K/uL (0.8-4.8); LYMPHOCYTES % (AUTO) 6.4 % (20.0-44.0); MEAN CORPUSCULAR HGB CONC 32 g/dl (31.0-36.0); MEAN CORPUSCULAR VOLUME 71 fL (82-100); MONOCYTES # (AUTO) 0.5 K/uL (0.1-1.30); NEUTROPHILS # (AUTO) 15.5 K/uL (1.8-8.9); NEUTROPHILS % (AUTO) 88.8 % (43.0-81.0); PLATELET COUNT (AUTO) 373 K/uL (150-450); RED BLOOD CELL COUNT(AUTO) 4.69 MIL/uL (4.0-5.2); WHITE BLOOD COUNT (AUTO) 17.4 K/uL (4.3-11.0)
--- NOTE | 2021-06-28 06:45 | NUR ---
RN CLOSING NOTES, PATIENT IN BED AWAKE, ALERT X0, NON VERBAL. NO SOB, BREATHING EVEN AND UNLABORED. NO FACIAL GRIMACING, NO ACUTE DISTRESS NOTED. PT IS ON ROOM AIR, O2 94%. IV ACCESS ON LAC #20G, AND RT WRIST INTACT AND PATENT. NO S/S OF INFILTRATIONS. ONGOING 1/2 NS AT 75 CC/HR AND TOLERATED WELL. APPLIED WARM WET COMPRESSION ON THE LEFT SIDE OF THE FACE AND PT TOLERATED WELL. DUE MEDS GIVEN ORDERED. ALL SAFETY MEASURES IN PLACE, BED IN LOW AND LOCKED POSITION, CALL LIGHT WITHIN REACH OF PATIENT, SIDE RAILS UP X2. WILL ENDORSE TO MORNING SHIFT NURSE.
[2021-06-28 06:58] LABS: CALCIUM, SERUM 8.8 mg/dL (8.5-10.1); POTASSIUM 3.1 mmol/L (3.5-5.1)
--- NOTE | 2021-06-28 07:59 | NUR ---
RN OPENING NOTES RECEIVED PATIENT IN BED AWAKE. PATIENT IS NON VERBAL. BREATHING EVEN AND ONLABORED. NO ACUTE DISTRESS NOTED AT THE TIME., ON ROOM AIR. TOLERATING WELL. ON TELE MONITOR SHOWING SR HR AT 80'S. IV ACCESS ON RIGHT WRIST FLUSHED WELL PATENT AND INTACT AND LEFT AC #20G, INTACT AND PATENT. INFUSING 1/2 NS AT 75 CC/HR, NO S/SX OF INFILTRATION NOTED. FALL AND SAFETY MEASURES IN PLACE, BED ALARM ON, BED IN LOW AND LOCKED POSITION, CALL LIGHT WITHIN REACH OF PATIENT, SIDE RAILS UP X2. WILL CONTINUE TO MONITOR PATIENT ACCORDINGLY
[2021-06-28] MEDS ORDERED: POTASSIUM CHLORIDE 20 MEQ TAB.PRT.SR PO ONE (08:00)
--- NOTE | 2021-06-28 16:27 | NUR ---
PER [facility] COVID NEGATIVE.
[2021-06-28] MEDS: VANCOMYCIN HCL 0.75 GM in IV D5W 250 ML IV SCH (18:03)
[2021-06-28] MEDS: IV 1/2NS 1000 ML 1,000 ML IV PRN (18:07)
--- NOTE | 2021-06-28 18:27 | NUR ---
RN NOTE PATIENT TRANSFERRED TO [facility] IN STABLE CONDITION. PATIENT AWAKE, NONVERBAL, TOLERATING ROOM AIR. BREATHING EVEN AND UNLABORED. NO SOB OR ANY ACUTE DISTRESS NOTED. PATIENT KEPT DRY, CLEAN AND COMFORTABLE. WOUND CARE RENDERED. ALL NEEDS METS. PATIENT HAD NO BELONGINGS. REPORT GIVEN TO ALEA CHEN.
--- NOTE | 2021-06-28 18:30 | NUR ---
RN MS NOTES RECEIVED PT FROM [facility] APRIL WAN VIA BED, PT IS AWAKE, NON VERBAL, NO SIGN OF PAIN OR DISTRESS, ON ROOM AIR, NO SOB, NOTED IV SITE AT RIGHT LOWER FOREARM INFILTRATED AND SWOLLEN, WITH REDNESS AT INSERTION SITE, IV REMOVED, ICE APPLIED TO SITE, IV SITE AT LEFT A/C LEAKING, IV REMOVED WELL, NEW IV LINE STARTED AT RIGHT A/C #20 AND RIGHT UPPER ARM #22, FLUSHING WELL, IV FLUIDS CONTINUED, KEPT PT WARM AND COMFORTABLE.
--- NOTE | 2021-06-28 19:15 | NUR ---
MS/RN NOTES PT AWAKE, NONVERBALLY RESPONSIVE, OPENS EYES TO STIMULI. NO S/S OF PAIN NOTED. IV SITE: R-AC #20 AND NOE #22 BOTH INTACT/PATENT AND FLUSHES WELL. CONTINUES ON IVF 1/2 NS @75ML/HR. PT IN NO ACUTE DISTRESS. SAFETY MEASURES IN PLACE, BED IN LOWEST LOCKED POSITION, S/R UPX2, CALL LIGHT WITHIN REACH. WILL CONT TO MONITOR.
--- NOTE | 2021-06-28 20:53 | NUR ---
RN NOTE RECEIVED CALL FROM LAB RE BLOOD CX RESULT POSITIVE FOR GRAM+ COCCI. DERMATOLOGY PHYSICIAN NERA ON THE FLOOR AND STATES THEY ARE AWARE OF IT.
[2021-06-29] MEDS: PIPERACILLIN /TAZOBACTAM 3.375 G in IV D5W 100 ML IV SCH ×2 (02:25→09:00)
[2021-06-29] MEDS: VANCOMYCIN HCL 0.75 GM in IV D5W 250 ML IV SCH (06:22)
[2021-06-29 06:51] LABS: BASOPHILS % (AUTO) 0.3 % (0.0-2.0); HEMATOCRIT 31 % (33-45); HEMOGLOBIN 9.8 g/dL (11.5-14.8); LYMPHOCYTES # (AUTO) 0.9 K/uL (0.8-4.8); MEAN CORPUSCULAR HGB CONC 31 g/dl (31.0-36.0); MEAN CORPUSCULAR VOLUME 70 fL (82-100); MONOCYTES # (AUTO) 0.4 K/uL (0.1-1.30); MONOCYTES % (AUTO) 4.7 % (2.0-12.0); PLATELET COUNT (AUTO) 376 K/uL (150-450); RED BLOOD CELL COUNT(AUTO) 4.45 MIL/uL (4.0-5.2); WHITE BLOOD COUNT (AUTO) 8.6 K/uL (4.3-11.0)
--- NOTE | 2021-06-29 07:00 | NUR ---
MS/RN NOTES PT AWAKE, OPENS EYES TO STIMULI, NONVERBAL. REORIENTATION PROVIDED. NO RESPIRATORY DISTRESS. IV ACCESS NOE AND R-AC INTACT, RUNNING 1/2 NS @75ML/HR. IV VANCO INFUSING AT THIS TIME. NO ACUTE EVENTS DURING THE SHIFT. SAFETY MEASURES MAINTAINED.
[2021-06-29 07:14] LABS: CALCIUM, SERUM 8.3 mg/dL (8.5-10.1); CREATININE 1.1 mg/dL (0.6-1.3); POTASSIUM 3.2 mmol/L (3.5-5.1)
--- NOTE | 2021-06-29 07:16 | NUR ---
RN NOTES PT IN BED AWAKE, EYES OPEN, NON-VERBAL. BREATHING EVEN AND UNLABORED, ON ROOM AIR. NO S/S OF PAIN NOR DISCOMFORT NOTED. IV SITE NOE #22 INTACT AND PATENT. IVF 1/2 NS @75ML/HR INFUSING. SAFETY MEASURES IN PLACE: BED IN LOWEST LOCKED POSITION, S/R UPX2, CALL LIGHT WITHIN REACH. WILL CONTINUE TO MONITOR.
[2021-06-29 08:00] VITALS: BP 180/95
--- NOTE | 2021-06-29 08:08 | NUR ---
RN NOTES PATIENT SEEN BY DR. WILSON TODAY. PER TANIA MERRITT FOR PATIENT TO HAVE MIDLINE, ORDER NOTED.
[2021-06-29] MEDS ORDERED: VANC750F2 IV (09:10)
[2021-06-29] MEDS ORDERED: PIPE3.379 IV (09:10)
[2021-06-29 10:00] VITALS: BP 148/90
[2021-06-29] MEDS ORDERED: POTASSIUM CHLORIDE 20 MEQ TAB.PRT.SR PO SCH (10:00)
--- NOTE | 2021-06-29 10:03 | NUR ---
RN NOTES SPOKE W/ JAMES, HEALTH CARE / MEDICAL JOB TITLES; PER CM, PATIENT WILL GO TO [facility] AND NEEDS RAPID COVID TEST; ORDER NOTED. INFORMED HEALTH CARE / MEDICAL JOB TITLES THAT PATIENT HAS STANDING ORDER FOR MIDLINE PATIENT WILL BE DISCHARGED W/ IV ATB.
--- NOTE | 2021-06-29 12:14 | NUR ---
RN NOTES RAPID COVID NEGATIVE PER LAB RESULT.
--- NOTE | 2021-06-29 14:00 | NUR ---
RN NOTES PATIENT REPORT AND DISCHARGE INSTRUCTIONS/EDUCATION GIVEN TO APRIL HAZEL EMERGENCY ROOM CLINICIAN AT [facility] ([phone]). INFORMED THAT IV LINE WILL BE KEPT FOR CONTINUATION OF IV ATB
--- NOTE | 2021-06-29 15:29 | NUR ---
RN NOTES PHOTO OF SKIN ISSUES TAKEN AND PLACED IN THE CHART.
--- NOTE | 2021-06-29 17:02 | NUR ---
RN NOTES MIDLINE NURSE IN THE UNIT TO INSERT MIDLINE ON PATIENT. ABLE TO INSERT MIDLINE ON RICHIE #18 INTACT AND PATENT.
--- NOTE | 2021-06-29 17:15 | NUR ---
RN NOTES PAT[facility]. REPORT GIVEN TO APRIL HAZEL AIR BOATSWAIN. DISCHARGE FORM AND BELONGINGS LIST FORM UNABLE TO BE SIGNED BY PATIENT; FORM SIGNED BY ME AND WITNESSED BY ANOTHER RN MICHAEL. NO BELONGINGS NOTED. RICHIE MIDLINE INTACT AND ENDORSED TO EMT AT BEDSIDE TO INFORM RN AIR BOATSWAIN AT SNF FOR IV ATB USE. PICKED UP BY 2 EMT'S VIA BALTAZAR. CHARGE NURSE AND MD AWARE OF DISCHARGE.
== END 2021-06-29 17:15 | DRG 154 ==
LOC: ER 20:58 → MEDSG1 06-26 04:04 → TELE1 06-26 04:31 → MEDSG1 06-28 16:15 → MED 06-28 18:10
PROVIDERS: ADMIT Hospitalist; ATTEND Internal Medicine
DX: K11.21 Acute sialoadenitis (principal); N17.0 Acute kidney failure with tubular necrosis; L03.211 Cellulitis of face; E87.0 Hyperosmolality and hypernatremia; R47.01 Aphasia; G93.49 Other encephalopathy; E87.6 Hypokalemia; F03.90 Unspecified dementia, unspecified severity, without behavioral disturbance, psychotic disturbance, mood disturbance, and anxiety; I10 Essential (primary) hypertension; I25.10 Atherosclerotic heart disease of native coronary artery without angina pectoris; K21.9 Gastro-esophageal reflux disease without esophagitis; Z20.822 Contact with and (suspected) exposure to COVID-19; F29 Unspecified psychosis not due to a substance or known physiological condition; R13.10 Dysphagia, unspecified; Z86.16 Personal history of COVID-19; M19.90 Unspecified osteoarthritis, unspecified site; F41.9 Anxiety disorder, unspecified; F32.9 Major depressive disorder, single episode, unspecified; R62.7 Adult failure to thrive; Z88.8 Allergy status to other drugs, medicaments and biological substances; Z79.899 Other long term (current) drug therapy; M54.12 Radiculopathy, cervical region; E87.5 Hyperkalemia
CPT/HCPCS: 36415; 70460-TC; 70491-TC; 80048-TC; 80053-TC; 80202-TC; 83735-TC; 84100-TC; 85025-TC; 87040-TC; 87081-TC; G0378; J0360; J2543; J3370; J3480; J3490; J7030; J7050; J7060; Q9967; U0003

== ENCOUNTER 2021-09-07 15:08 | Inpatient (IN) | payer MEDICARE, OTHER ==
[~2021-09-07] VITALS: Ht 157.5 cm; Wt 49.9 kg
[~2021-09-07 15:08] MED LIST changes: +ACET-868 GT; -ACET-868 PO; +DIPH25CA51 PO; +DOCU-141 GT; -DOCU-141 PO; +FERR325T23 GT; -HALO1TAB5 PO; +MAGN400O6 GT; -MAGN400O6 PO; -OMEP20TA5 PO; +PANT40TA2 PO; +PIPE3.379 IV; +VANC750F2 IV
--- NOTE | 2021-09-07 15:20 | NUR ---
BIB [facility] FOR COCCYX AREA DECUBITUS ULCER, SENT BY PMD TO RULE OUT OSTEOMYLITIS. AA/O X0. IN ROOM AIR, RESPIRATION REGULAR AND UNLABORED. GT PRESENT, LYNN CATH PRESENT. ATTACHED THE PATIENT TO THE MONITOR. WILL CONTINUE TO MONITOR THE PATIENT.
[2021-09-07] MEDS ORDERED: NUT.237L30 GT (15:28)
[2021-09-07] MEDS ORDERED: CRAN3875 GT (15:28)
[2021-09-07] MEDS ORDERED: AMLO-213 GT (15:28)
[2021-09-07] MEDS ORDERED: OLAN7.5T3 GT (15:28)
[2021-09-07] MEDS ORDERED: ASCO-340 GT (15:28)
[2021-09-07] MEDS ORDERED: AMIN30LI2 GT (15:28)
[2021-09-07] MEDS ORDERED: MULT-447 GT (15:28)
[2021-09-07] MEDS ORDERED: HYDR-4076 GT (15:28)
[2021-09-07] MEDS ORDERED: DIVA125C2 GT (15:28)
--- NOTE | 2021-09-07 15:35 | NUR ---
IV CANNULA INSITU, BLOOD FOR INVESTIGATION SENT TO LAB, LINE ON SALINE LOCK. URINE COLLECTED, COVID ANTIGEN DONE AND SENT TO LAB.
[2021-09-07 15:47] LABS: BASOPHILS # (AUTO) 0.1 K/uL (0.0-0.2); BASOPHILS % (AUTO) 0.9 % (0.0-2.0); HEMATOCRIT 26 % (33-45); HEMOGLOBIN 8.2 g/dL (11.5-14.8); LYMPHOCYTES # (AUTO) 1.5 K/uL (0.8-4.8); LYMPHOCYTES % (AUTO) 21.2 % (20.0-44.0); MEAN CORPUSCULAR HGB CONC 31 g/dl (31.0-36.0); MEAN CORPUSCULAR VOLUME 64 fL (82-100); MONOCYTES # (AUTO) 0.9 K/uL (0.1-1.30); MONOCYTES % (AUTO) 11.9 % (2.0-12.0); NEUTROPHILS # (AUTO) 4.7 K/uL (1.8-8.9); PLATELET COUNT (AUTO) 663 K/uL (150-450); WHITE BLOOD COUNT (AUTO) 7.3 K/uL (4.3-11.0)
[2021-09-07 15:58] LABS: COLOR,URINE YELLOW (YELLOW)
[2021-09-07 16:00] LABS: BILIRUBIN,URINE SMALL (NEGATIVE); PH,URINE 8.5 (5.0-8.0); PROTEIN,URINE 1+ mg/dl (NEGATIVE); UGLUCOSE NEGATIVE (NEGATIVE)
[2021-09-07] MEDS ORDERED: CEFEPIME 1 GM in IV D5W 50 ML IV ONE (16:00)
[2021-09-07] MEDS ORDERED: VANCOMYCIN 1 GM in IV D5W 250 ML IV ONE (16:00)
[2021-09-07 16:01] LABS: LEUKOCYTE ESTERASE ,URINE LARGE (NEGATIVE); NITRITE, URINE POSITIVE (NEGATIVE)
[2021-09-07 16:02] LABS: BACTERIA,URINE 4+ /HPF (None Seen); MUCUS,URINE Few /LPF (None Seen); SQUAMOUS EPITHELIAL CELL,UR Few /HPF (None Seen); URINE AMORPHOUS PHOSPHATES Moderate /HPF (None Seen)
[2021-09-07 16:09] LABS: ALANINE AMINOTRANSFERASE 14 U/L (12-78); ALBUMIN 1.7 g/dL (3.4-5.0); ALKALINE PHOSPHATASE 88 U/L (46-116); ASPARTATE AMINOTRANSFERASE 38 U/L (15-37); BILIRUBIN,DIRECT 0.1 mg/dL (0.0-0.2); BILIRUBIN,TOTAL 0.2 mg/dL (0.2-1.0); CALCIUM, SERUM 8.5 mg/dL (8.5-10.1); CARBON DIOXIDE 27 mmol/L (21-32); CHLORIDE 101 mmol/L (98-107); CREATININE 0.7 mg/dL (0.6-1.3); GLUCOSE 131 mg/dL (74-106); POTASSIUM 4.5 mmol/L (3.5-5.1); SODIUM SERUM 135 mmol/L (136-145); TOTAL PROTEIN, SERUM 7.8 g/dL (6.4-8.2); UREA NITROGEN, BLOOD 16 mg/dL (7-18)
--- NOTE | 2021-09-07 16:21 | NUR ---
[facility] CALLED WOOL HAT HYDRAULICKER PAGED.
[2021-09-07] MEDS ORDERED: CT SWABBABLE VALVE TRANS SET 1 EA INFUS.SET MC ONE (16:28)
[2021-09-07] MEDS ORDERED: IOHEXOL-300 100 ML VIAL IV ONE (16:28)
[2021-09-07] MEDS ORDERED: IV NS 0.9% 250 ML IV ONE (16:28)
[2021-09-07] MEDS ORDERED: ACETAMINOPHEN 325 MG TABLET MC PRN (17:00)
[2021-09-07] MEDS ORDERED: MAGNESIUM HYDROXIDE 30 ML UDC PO PRN (17:00)
[2021-09-07] MEDS ORDERED: Medication Not On Formulary EA (Cran/Vitc/Mannose/Inulin/Brom (Uti-Stat Liquid) 3,875 MG GT SCH (17:00)
[2021-09-07] MEDS ORDERED: CEFEPIME 1 GM in IV D5W 50 ML IV SCH (17:00)
[2021-09-07] MEDS ORDERED: ONDANSETRON HCL/PF 4 MG/2 ML VIAL IVP PRN (17:00)
[2021-09-07] MEDS ORDERED: BISACODYL SUPP (10 MG) 10 MG/SUPP.RECT SUPP.RECT RC PRN (17:00)
[2021-09-07] MEDS ORDERED: MAGNESIUM HYDROXIDE 30 ML UDC GT PRN (17:00)
[2021-09-07] MEDS ORDERED: ACETAMINOPHEN 325 MG TABLET PO PRN (17:00)
[2021-09-07] MEDS ORDERED: NA PHOS,M-B/NA PHOS,DI-BA 1 EA ENEMA RC PRN (17:00)
[2021-09-07] MEDS ORDERED: MAG HYDROX/AL HYDROX/SIMETH 30 ML UDC PO PRN (17:00)
[2021-09-07] MEDS ORDERED: Z GUARD REMEDY 4 OZ OINT TP PRN (17:00)
[2021-09-07] MEDS ORDERED: ZOLPIDEM TARTRATE 5 MG TABLET PO PRN (17:00)
--- NOTE | 2021-09-07 18:05 | NUR ---
COVID RESULT NEGATIVE. INFORMED HOUSE SUP.
--- NOTE | 2021-09-07 18:16 | NUR ---
BED 327-2.
--- NOTE | 2021-09-07 18:29 | NUR ---
REPORT GIVEN TO NURSE DUMONT FOR DONG
--- NOTE | 2021-09-07 18:59 | NUR ---
THE PATIENT IS TRANSFERED TO ASSIGNED BED IN STABLE CONDITION AND PER ACLS POLICY.
--- NOTE | 2021-09-07 19:15 | NUR ---
MS RN OPENING NOTES RECEIVED PATIENT LAYING AWAKE IN BED. A/O X0. PATIENT WITH REGULAR AND UNLABORED BREATHING ON ROOM AIR TOLERATED WELL. NO SIGNS OR SYMPTOMS OF DISTRESS NOTED AT THIS TIME. NO COMPLAINS OF PAIN OR DISCOMFORT AT THIS TIME. IV ACCESS RFA G #18 INFUSING NS @ 75 ML/HR. SAFETY PRECAUTIONS ENFORCED WITH BED LOCKED AND AT LOWEST POSITION. CALL LIGHT WITHIN REACH AT ALL TIMES. WILL CONTINUE TO MONITOR PATIENT.
[2021-09-07 20:00] VITALS: BP 140/87
[2021-09-07] MEDS: IV NS 0.9% 1,000 ML IV PRN (20:22)
[2021-09-07] MEDS: DIVALPROEX SODIUM 125 MG CAP.SPRINK GT SCH (20:41)
[2021-09-07] MEDS: MULTIVIT W/MINERALS 1 TAB TABLET GT SCH (20:42)
[2021-09-07] MEDS: hydrALAZINE HCL 25 MG TABLET GT SCH (20:42)
[2021-09-07] MEDS: ACETAMINOPHEN 650 MG/20.3 ML UDC GT PRN (20:43)
[2021-09-07] MEDS: DOCUSATE SODIUM 100 MG CAPSULE PO SCH (20:43)
[2021-09-07] MEDS: FERROUS SULFATE (325 MG) 325 MG/TAB TABLET GT SCH (20:46)
[2021-09-07] MEDS: ASCORBIC ACID 500 MG TABLET GT SCH (20:46)
[2021-09-07] MEDS ORDERED: DOCUSATE SODIUM 100 MG CAPSULE PO SCH (21:30)
[2021-09-07] MEDS ORDERED: MEROPENEM 1 G VIAL IV ONE (22:52)
[2021-09-07] MEDS: MEROPENEM 1 G in IV NS 0.9% 100 ML IV SCH (22:53)
[2021-09-07] MEDS: PROSTAT (PYXIS) 30 ML UDC GT SCH (22:54)
[2021-09-07] MEDS: OLANZAPINE 2.5 MG TABLET GT SCH (23:00)
[2021-09-07] MEDS: POLYETHYLENE GLYCOL 3350 17 GM POWD.PACK PO SCH (23:00)
[2021-09-08] MEDS: JEVITY 1.2 CAL 1,000 ML BOTTLE GT PRN ×2 (01:28→18:43)
[2021-09-08] MEDS: VANCOMYCIN 0.75 GM in IV D5W 250 ML IV SCH ×2 (04:07→15:52)
[2021-09-08] MEDS ORDERED: MEROPENEM 1 G VIAL IV ONE (05:12)
[2021-09-08] MEDS: MEROPENEM 1 G in IV NS 0.9% 100 ML IV SCH ×3 (05:27→21:49)
[2021-09-08 06:49] LABS: EOSINOPHILS % (AUTO) 1.6 % (0.0-6.0); HEMATOCRIT 28 % (33-45); HEMOGLOBIN 8.6 g/dL (11.5-14.8); LYMPHOCYTES # (AUTO) 1.2 K/uL (0.8-4.8); LYMPHOCYTES % (AUTO) 24.3 % (20.0-44.0); MEAN CORPUSCULAR HGB CONC 31 g/dl (31.0-36.0); MEAN CORPUSCULAR VOLUME 65 fL (82-100); MONOCYTES # (AUTO) 0.6 K/uL (0.1-1.30); MONOCYTES % (AUTO) 13.4 % (2.0-12.0); NEUTROPHILS # (AUTO) 2.9 K/uL (1.8-8.9); NEUTROPHILS % (AUTO) 59.7 % (43.0-81.0); PLATELET COUNT (AUTO) 676 K/uL (150-450); RED BLOOD CELL COUNT(AUTO) 4.28 MIL/uL (4.0-5.2); WHITE BLOOD COUNT (AUTO) 4.8 K/uL (4.3-11.0)
[2021-09-08 06:56] LABS: CALCIUM, SERUM 8.9 mg/dL (8.5-10.1); CREATININE 0.7 mg/dL (0.6-1.3); MAGNESIUM 2.4 mg/dL (1.8-2.4); PHOSPHORUS 3.4 mg/dL (2.5-4.9); POTASSIUM 4.1 mmol/L (3.5-5.1)
--- NOTE | 2021-09-08 07:10 | NUR ---
MS RN CLOSING NOTES PATIENT STILL LAYING AWAKE IN BED. A/O X0. PATIENT WITH REGULAR AND UNLABORED BREATHING ON ROOM AIR TOLERATED WELL. NO SIGNS OR SYMPTOMS OF DISTRESS NOTED AT THIS TIME. NO COMPLAINS OF PAIN OR DISCOMFORT AT THIS TIME. IV ACCESS RFA G #18 INFUSING NS @ 75 ML/HR. G TUBE WITH JEVITY FEEDING @ 55ML/HR TOLERATED WELL. SAFETY PRECAUTIONS ENFORCED WITH BED LOCKED AND AT LOWEST POSITION. CALL LIGHT WITHIN REACH AT ALL TIMES. WILL ENDORSE CONTINUITY OF CARE TO DAY SHIFT NURSE.
--- NOTE | 2021-09-08 07:53 | NUR ---
RN OPENING NOTES Patient seen comfortably lying in bed, breathing even and unlabored, no SOB, no apparent distress noted, no grimacing. Call light left within reach, safety precautions in place, brakes locked, side rails up X 2, will monitor closely for any changes.
[2021-09-08 08:00] VITALS: BP 146/85
[2021-09-08] MEDS: DIVALPROEX SODIUM 125 MG CAP.SPRINK GT SCH ×3 (09:20→17:07)
[2021-09-08] MEDS: hydrALAZINE HCL 25 MG TABLET GT SCH ×2 (09:20→21:49)
[2021-09-08] MEDS: FERROUS SULFATE (325 MG) 325 MG/TAB TABLET GT SCH ×2 (09:20→17:07)
[2021-09-08] MEDS: DOCUSATE SODIUM 100 MG CAPSULE PO SCH ×2 (09:20→17:07)
[2021-09-08] MEDS: AMLODIPINE BESYLATE 10 MG TABLET GT SCH (09:21)
[2021-09-08 10:32] LABS: BILIRUBIN,URINE NEGATIVE (NEGATIVE); LEUKOCYTE ESTERASE ,URINE SMALL (NEGATIVE); NITRITE, URINE NEGATIVE (NEGATIVE); PH,URINE 6.5 (5.0-8.0); PROTEIN,URINE NEGATIVE (NEGATIVE); UGLUCOSE NEGATIVE (NEGATIVE); UROBILINOGEN,URINE 0.2 EU/dL (0.2)
[2021-09-08 10:35] LABS: COLOR,URINE STRAW (YELLOW)
[2021-09-08] MEDS: IV NS 0.9% 1,000 ML IV PRN (10:44)
[2021-09-08 11:56] LABS: BACTERIA,URINE None seen /HPF (None Seen); SQUAMOUS EPITHELIAL CELL,UR Rare /HPF (None Seen)
[2021-09-08] MEDS ORDERED: LACTULOSE 10 G/15 ML UDC (PYXIS) PO ONE (13:00)
--- NOTE | 2021-09-08 14:43 | NUR ---
Per hospitalist, okay for patient to use SCD pumps to increase circulation and to limit development of deep vein thrombosis, no apparent distress noted, , no s/s of circulation impairment noted at this time, skin warm to touch, no pallor or cyanosis noted, pulse present during shift, no swelling noted at this time, will monitor closely for any changes.
[2021-09-08 16:00] VITALS: BP 138/70
[2021-09-08] MEDS: MULTIVIT W/MINERALS 1 TAB TABLET GT SCH (17:07)
[2021-09-08] MEDS: ASCORBIC ACID 500 MG TABLET GT SCH (17:07)
--- NOTE | 2021-09-08 19:41 | NUR ---
RN CLOSING NOTES Patient lying in bed, no apparent distress noted, no shortness of breath, breathing even and unlabored, no grimacing, remained afebrile. Gastric tube remained patent, intact and in place during shift, placement verified by auscultation and aspiration of gastric residuals. All due medications given via gtube per MD order, tolerating well. Patient on gastric tube feeding (Jevity 1.2 55ml/hr), tolerating well, no nausea, no vomiting, no episode of loose stool, no constipation, abdominal bowel sound present in all quadrants, no grimacing when abdomen palpated. Reeder catheter draining clear yellowish urine free from any sediments, no hematuria, and no unusual odor noted in urine, denies any bladder pain or discomfort, bladder non distended during shift. Aspiration precautions observed at all times, kept head of bed elevated, all needs anticipated, kept clean and dry, safety precautions in place, frequent visual checks rendered, frequent turning and repositioning done, side rails up X 2, brakes locked, call light left within reach, will endorse to next shift for continuity of care.
[2021-09-08 20:00] VITALS: BP 128/84
--- NOTE | 2021-09-08 20:04 | NUR ---
MS OPENING/TRANSFER NOTE PATIENT WAS TRANSFERRED TO [facility] @1999 BY CHARGE NURSE FROM [facility] TO [facility]. PATIENT IS AWAKE IN BED, A/OX0. NO S/S OF DISTRESS. BREATHING RM AIR. RFA #18 NS 75ML/HR. JEVITY 55ML/HR. SAFETY MEASURES IN PLACE: BED AT LOWEST POSITION, RAILS UP X3, CALL BERGERON WITHIN REACH. WILL CONTINUE TO MONITOR PATIENT.
[2021-09-08] MEDS: OLANZAPINE 2.5 MG TABLET GT SCH (21:49)
[2021-09-08] MEDS: POLYETHYLENE GLYCOL 3350 17 GM POWD.PACK PO SCH (21:49)
[2021-09-09] MEDS: IV NS 0.9% 1,000 ML IV PRN (02:22)
--- NOTE | 2021-09-09 03:15 | NUR ---
RN NOTE LAB CAME TO DRAW FOR VANCO TROUGH. PER LAB PERSONNEL, MACHINE IS DOWN IN HOSPITAL SO SENIOR SCIENCE CONSULTANT WILL BE UTILIZED TO RUN TEST. I WAS NOTIFIED RESULTS COULD BE 2+ HRS FROM DRAW. CHARGE NURSE, OSMAN, NOTIFIED. PATIENT IS STABLE; WILL CONTINUE TO MONITOR.
[2021-09-09 03:25] LABS: BASOPHILS % (AUTO) 0.4 % (0.0-2.0); HEMATOCRIT 26 % (33-45); LYMPHOCYTES # (AUTO) 1.3 K/uL (0.8-4.8); LYMPHOCYTES % (AUTO) 21.4 % (20.0-44.0); MEAN CORPUSCULAR HGB CONC 31 g/dl (31.0-36.0); MEAN CORPUSCULAR VOLUME 65 fL (82-100); MONOCYTES # (AUTO) 0.6 K/uL (0.1-1.30); MONOCYTES % (AUTO) 9.7 % (2.0-12.0); NEUTROPHILS % (AUTO) 66.5 % (43.0-81.0); PLATELET COUNT (AUTO) 608 K/uL (150-450); RED BLOOD CELL COUNT(AUTO) 3.97 MIL/uL (4.0-5.2)
[2021-09-09 04:04] LABS: CARBON DIOXIDE 26 mmol/L (21-32); CHLORIDE 104 mmol/L (98-107); CREATININE 0.7 mg/dL (0.6-1.3); GLUCOSE 134 mg/dL (74-106); POTASSIUM 3.9 mmol/L (3.5-5.1); SODIUM SERUM 138 mmol/L (136-145); UREA NITROGEN, BLOOD 11 mg/dL (7-18)
[2021-09-09] MEDS: VANCOMYCIN 0.75 GM in IV D5W 250 ML IV SCH ×2 (04:52→16:27)
--- NOTE | 2021-09-09 04:59 | NUR ---
RN NOTE TROUGH RESULTED AT 0450 (IT WAS 13). VANCO ADMINISTERED. PATIENT STABLE; WILL CONTINUE TO MONITOR.
[2021-09-09 05:32] LABS: CALCIUM, SERUM 8.3 mg/dL (8.5-10.1)
[2021-09-09] MEDS: MEROPENEM 1 G in IV NS 0.9% 100 ML IV SCH ×3 (05:53→21:38)
--- NOTE | 2021-09-09 06:44 | NUR ---
MS RN CLOSING NOTE PATIENT ASLEEP IN BED. A/OX0 (NON-VERBAL). NO S/S OF DISTRESS, BREATHING UNLABORED ON RM AIR. RFA #20 NS 75ML/HR INTACT AND PATENT. SAFETY MEASURES IN PLACE: BED AT LOWEST POSITION, RAILS UP X3, CALL BERGERON WITHIN REACH. ALL NEEDS ATTENDED TO. WILL ENDORSE TO FOLLOWING SHIFT FOR DONG.
--- NOTE | 2021-09-09 07:00 | NUR ---
MS RN OPENING NOTE RECEIVED PATIENT IN BED. A/OX0 (BASELINE). NO S/S OF DISTRESS, BREATHING UNLABORED ON ROOM AIR. RFA #20 NS 75ML/HR INTACT AND PATENT. SAFETY MEASURES IN PLACE: BED AT LOWEST POSITION, RAILS UP X3, CALL BERGERON WITHIN REACH. ALL NEEDS ATTENDED TO. WILL CONTINUE TO MONITOR.
[2021-09-09 08:18] VITALS: BP 147/90
--- NOTE | 2021-09-09 08:52 | NUR ---
WOUND CARE CONSULT: PT PRESENTS WITH STAGE 4 PRESSURE ULCER TO SACRUM, LEFT EAR WOUND AND CALLUSES/BROWN DISCOLORATION TO HEELS, ALL PRESENT ON ADMISSION. DR VALDOVINOS NOTIFIED OF SURGICAL CONSULT REQUEST. RECOMMENDATIONS MADE FOR SKIN PROTECTION. DISCUSSED WITH NURSING STAFF. PT IS ON BIRGIT ISOFLEX LOW AIRLOSS BED. IN AGREEMENT WITH PLAN OF CARE. Addendum: 09/09/21 at 0853 by TAD CHI WNDNU Amended: Links added.
[2021-09-09] MEDS: AMLODIPINE BESYLATE 10 MG TABLET GT SCH (09:35)
[2021-09-09] MEDS: FERROUS SULFATE (325 MG) 325 MG/TAB TABLET GT SCH ×2 (09:36→17:13)
[2021-09-09] MEDS: DOCUSATE SODIUM 100 MG CAPSULE PO SCH ×2 (09:36→17:13)
[2021-09-09] MEDS: DIVALPROEX SODIUM 125 MG CAP.SPRINK GT SCH ×3 (09:37→17:12)
[2021-09-09] MEDS: hydrALAZINE HCL 25 MG TABLET GT SCH ×2 (09:37→21:38)
[2021-09-09 13:47] LABS: EOSINOPHILS % (MANUAL) 3 % (0-4); LYMPHOCYTES % (MANUAL) 22 % (16-48); MONOCYTES % (MANUAL) 11 % (0-11.0); NEUTROPHILS % (MANUAL) 64 (42-76)
[2021-09-09 16:25] VITALS: BP 135/75
[2021-09-09] MEDS: ASCORBIC ACID 500 MG TABLET GT SCH (17:12)
[2021-09-09] MEDS: MULTIVIT W/MINERALS 1 TAB TABLET GT SCH (17:13)
[2021-09-09] MEDS: PROSTAT (PYXIS) 30 ML UDC GT SCH (17:19)
--- NOTE | 2021-09-09 18:30 | NUR ---
MS RN CLOSING NOTE PATIENT A/O X 0 (BASELINE), BREATHING EVENLY ON ROOM AIR WITH NO SIGNS OF DISTRESS. PATIENT ON JEVITY 1.2 @ 55 ML/HR VIA G-TUBE. PATIENT SACRAL WOUND PACKED WITH NS SOAKED KERLIX AND COVERED WITH ABD PAD PER BIOFUELS PROCESSING TECHNICIAN RECOMMENDATION. HEELS FLOATED WITH PILLOW AND FOAM DRESSING PRESENT ON L EAR. RFA 20G SL WITH NS @ 75 ML/HR. ALL NEEDS MET. PATIENT TURNED Q2H. SAFETY MEASURES IN PLACE: BED IN LOWEST LOCKED POSITION, SIDE RAILS UP X 2, CALL LIGHT WITHIN REACH. WILL ENDORSE TO STREET LIGHT SERVICER HELPER FOR DONG. Addendum: 09/09/21 at 1943 by YOUSUF MYRICK RN LYNN CATHETER IN PLACE DRAINING CLEAR YELLOW URINE.
--- NOTE | 2021-09-09 19:37 | NUR ---
MS RN OPENING NOTES: RECEIVED PATIENT SLEEP IN BED AROUSABLE TO VERBAL STIMULI, BE DIN LOW POSITION,CALL LIGHTS WITHIN REACH, NO COMPLAIN OF PAIN AND DISCOMFORT, NO FACIAL GRIMACING WS OBSERVED, PATIENT ON ROOM AIR SATURATING WELL, PATIENT IS A/OX1 NONE VERBAL, HOB AT 45 DEGREE, ON G TUBE FEEDING OF JEVITY 1.2 AT 55 ML PER HOUR INFUSING WELL, IV LINE AT, ON LYNN CATHETER WITH 200 CC URINE OUTPUT, PATIENT KEPT CLEAN AND DRY ALL NEEDS MET WILL CONTINUE TO MONITOR.
[2021-09-09 20:00] VITALS: BP 130/77
[2021-09-09] MEDS: OLANZAPINE 2.5 MG TABLET GT SCH (22:18)
[2021-09-09] MEDS: POLYETHYLENE GLYCOL 3350 17 GM POWD.PACK PO SCH (22:19)
[2021-09-09] MEDS ORDERED: SILVER NITRATE APPLICATOR 1 EA BOX TP SCH (23:00)
[2021-09-09] MEDS ORDERED: LIDOCAINE 1%-EPI 1:100,000 20 ML VIAL TP ONE (23:00)
--- NOTE | 2021-09-09 23:00 | NUR ---
RN NOTES: RECEIVED LAB RESULT REGARDING BLOOD CULTURE- RESULT OF GRAM NEGATIVE RODS, SEEN IN GRAM STAIN, DR WOODS MADE AWARE WITH NNO.
[2021-09-10] MEDS: JEVITY 1.2 CAL 1,000 ML BOTTLE GT PRN (00:55)
[2021-09-10] MEDS: IV NS 0.9% 1,000 ML IV PRN ×2 (01:53→21:31)
[2021-09-10] MEDS: VANCOMYCIN 0.75 GM in IV D5W 250 ML IV SCH (03:52)
[2021-09-10] MEDS: MEROPENEM 1 G in IV NS 0.9% 100 ML IV SCH ×3 (05:16→20:28)
--- NOTE | 2021-09-10 06:45 | NUR ---
RN NOTES: SPOKE TO NUZHAT ANDREA TO GET TELEPHONE CONSENT FOR SERIAL DEBRIDEMENT OF SACRUM ., SON APPROVED, APRIL ARZOLA CO SIGN 2ND WITNESS
--- NOTE | 2021-09-10 06:52 | NUR ---
RN CLOSING NOTES: PATIENT SLEEP IN BED COMFORTABLY, BED IN LOW POSITION CALL LIGHTS WITHIN REACH, A/OX0 NONE VERBAL NO COMPLAIN OF PAIN AND DISCOMFORT, NO FACIAL GRIMACING, ON ROOM AIR SATURATING WELL, PATIENT ON NPO G TUBE FEEDING OF JEVITY 1.2@55 ML/HR INFUSING WELL, WITH IV LINE AT RFA#20 WITH ONGOING NSS@75ML PER HOUR INFUSING WELL, PATIENT KEPT CLEAN AND DRY ALL NEEDS MET ENDORSE TO INCOMING SHIFT.
--- NOTE | 2021-09-10 07:00 | NUR ---
MS RN OPENING NOTE RECEIVED PATIENT ASLEEP IN BED, AROUSABLE BY TOUCH TO A/O X 0 (BASELINE), TOLERATING WELL ON ROOM AIR. BREATHING EVEN AND UNLABORED WITH NO S/S OF DISTRESS AT THIS TIME. R FA 20G WITH NS @ 75 ML/HR AND G-TUBE WITH JEVITY 1.2 @ 55 ML/HR BOTH INFUSING WELL. SAFETY MEASURES IN PLACE: BED IN LOWEST LOCKED POSITION, SIDE RAILS UP X 2, CALL LIGHT WITHIN REACH. WILL CONTINUE TO MONITOR.
[2021-09-10 07:42] LABS: BASOPHILS # (AUTO) 0.1 K/uL (0.0-0.2); BASOPHILS % (AUTO) 0.9 % (0.0-2.0); EOSINOPHILS % (AUTO) 3.1 % (0.0-6.0); HEMATOCRIT 26 % (33-45); HEMOGLOBIN 7.9 g/dL (11.5-14.8); LYMPHOCYTES # (AUTO) 1.4 K/uL (0.8-4.8); LYMPHOCYTES % (AUTO) 24.8 % (20.0-44.0); MEAN CORPUSCULAR HGB CONC 31 g/dl (31.0-36.0); MEAN CORPUSCULAR VOLUME 65 fL (82-100); MONOCYTES # (AUTO) 0.6 K/uL (0.1-1.30); MONOCYTES % (AUTO) 10.3 % (2.0-12.0); NEUTROPHILS # (AUTO) 3.5 K/uL (1.8-8.9); NEUTROPHILS % (AUTO) 60.9 % (43.0-81.0); PLATELET COUNT (AUTO) 724 K/uL (150-450); RED BLOOD CELL COUNT(AUTO) 3.93 MIL/uL (4.0-5.2); WHITE BLOOD COUNT (AUTO) 5.8 K/uL (4.3-11.0)
[2021-09-10 08:00] VITALS: BP 142/84
[2021-09-10 08:45] LABS: CREATININE 0.7 mg/dL (0.6-1.3); POTASSIUM 3.9 mmol/L (3.5-5.1)
[2021-09-10] MEDS: FERROUS SULFATE (325 MG) 325 MG/TAB TABLET GT SCH ×2 (08:58→17:14)
[2021-09-10] MEDS: DOCUSATE SODIUM 100 MG CAPSULE PO SCH ×2 (08:59→17:09)
[2021-09-10] MEDS: hydrALAZINE HCL 25 MG TABLET GT SCH ×2 (08:59→21:31)
[2021-09-10] MEDS: AMLODIPINE BESYLATE 10 MG TABLET GT SCH (08:59)
[2021-09-10] MEDS: DIVALPROEX SODIUM 125 MG CAP.SPRINK GT SCH ×3 (08:59→17:14)
[2021-09-10] MEDS: DAKINS QUARTER STRENGTH (0.125%) 480 ML BOTTLE TOP SCH (09:00)
--- NOTE | 2021-09-10 11:30 | NUR ---
MS RN NOTES NEW SCD PUMP DELIVERED FROM [facility], ATTACHED TO PATIENT IN ROOM AND WORKING PROPERLY.
[2021-09-10 16:00] VITALS: BP 143/83
[2021-09-10] MEDS: ASCORBIC ACID 500 MG TABLET GT SCH (17:14)
[2021-09-10] MEDS: MULTIVIT W/MINERALS 1 TAB TABLET GT SCH (17:14)
[2021-09-10] MEDS: PROSTAT (PYXIS) 30 ML UDC GT SCH (18:00)
--- NOTE | 2021-09-10 18:37 | NUR ---
MS RN CLOSING NOTES PATIENT IN BED A/O X 0 (BASELINE), TOLERATING WELL ON ROOM AIR. BREATHING EVEN AND UNLABORED WITH NO S/S OF DISTRESS AT THIS TIME. R FA 20G WITH NS @ 75 ML/HR AND G-TUBE WITH JEVITY 1.2 @ 55 ML/HR BOTH INFUSING WELL. BILATERAL LEG PUMPS IN PLACE AND INFLATING NORMALLY. ALL NEEDS MET. SAFETY MEASURES IN PLACE: BED IN LOWEST LOCKED POSITION, SIDE RAILS UP X 2, CALL LIGHT WITHIN REACH. WILL ENDORSE TO CUSTOMER SERVICE ENGINEER FOR DONG.
--- NOTE | 2021-09-10 19:30 | NUR ---
RN NOTES RECEIVED PATIENT AWAKE, NON-VERBAL, G-TUBE FEEDING RUNNING AT 55 ML/HR, NO RESIDUAL NOTED BED IN LOCKED POSITION, NOT IN DISTRESS, NO PAIN NOTED, SIDERAILSUPX2, WILL CONTINUE TO MONITOR
[2021-09-10 20:00] VITALS: BP 123/74
[2021-09-10] MEDS: POLYETHYLENE GLYCOL 3350 17 GM POWD.PACK PO SCH (21:31)
[2021-09-10] MEDS: OLANZAPINE 2.5 MG TABLET GT SCH (21:31)
[2021-09-11] MEDS: JEVITY 1.2 CAL 1,000 ML BOTTLE GT PRN ×2 (01:23→19:47)
[2021-09-11] MEDS: MEROPENEM 1 G in IV NS 0.9% 100 ML IV SCH ×3 (04:54→20:22)
[2021-09-11 06:15] LABS: BASOPHILS % (AUTO) 0.9 % (0.0-2.0); EOSINOPHILS % (AUTO) 4.2 % (0.0-6.0); HEMATOCRIT 26 % (33-45); HEMOGLOBIN 7.9 g/dL (11.5-14.8); LYMPHOCYTES # (AUTO) 1.5 K/uL (0.8-4.8); LYMPHOCYTES % (AUTO) 26.5 % (20.0-44.0); MEAN CORPUSCULAR HGB CONC 31 g/dl (31.0-36.0); MEAN CORPUSCULAR VOLUME 65 fL (82-100); MONOCYTES # (AUTO) 0.6 K/uL (0.1-1.30); MONOCYTES % (AUTO) 9.8 % (2.0-12.0); NEUTROPHILS # (AUTO) 3.3 K/uL (1.8-8.9); NEUTROPHILS % (AUTO) 58.6 % (43.0-81.0); PLATELET COUNT (AUTO) 713 K/uL (150-450); RED BLOOD CELL COUNT(AUTO) 3.92 MIL/uL (4.0-5.2); WHITE BLOOD COUNT (AUTO) 5.7 K/uL (4.3-11.0)
--- NOTE | 2021-09-11 06:32 | NUR ---
RN NOTES AWAKE, MORNING CARE RENDERED, G-TUBE FEEDING RUNNING, NO RESIDUAL NOTED, MORNING CARE RENDERED, PT. NEEDS ATTENDED
--- NOTE | 2021-09-11 07:00 | NUR ---
MS RN OPENING NOTES PATIENT IN BED A/O X 0 (BASELINE), TOLERATING WELL ON ROOM AIR. BREATHING EVEN AND UNLABORED WITH NO S/S OF DISTRESS AT THIS TIME. R FA 20G WITH NS @ 75 ML/HR AND G-TUBE WITH JEVITY 1.2 @ 55 ML/HR BOTH INFUSING WELL. BILATERAL LEG PUMPS IN PLACE AND INFLATING NORMALLY. ALL NEEDS MET. SAFETY MEASURES IN PLACE: BED IN LOWEST LOCKED POSITION, SIDE RAILS UP X 2, CALL LIGHT WITHIN REACH. WILL CONTINUE TO MONITOR.
[2021-09-11 07:06] LABS: CALCIUM, SERUM 8.2 mg/dL (8.5-10.1); CREATININE 0.7 mg/dL (0.6-1.3); POTASSIUM 4.1 mmol/L (3.5-5.1)
[2021-09-11 08:00] VITALS: BP 137/65
[2021-09-11] MEDS: DIVALPROEX SODIUM 125 MG CAP.SPRINK GT SCH ×3 (09:10→17:27)
[2021-09-11] MEDS: hydrALAZINE HCL 25 MG TABLET GT SCH ×2 (09:10→20:25)
[2021-09-11] MEDS: DOCUSATE SODIUM 100 MG CAPSULE PO SCH ×2 (09:11→17:27)
[2021-09-11] MEDS: FERROUS SULFATE (325 MG) 325 MG/TAB TABLET GT SCH ×2 (09:11→17:27)
[2021-09-11] MEDS: AMLODIPINE BESYLATE 10 MG TABLET GT SCH (09:11)
[2021-09-11] MEDS: DAKINS QUARTER STRENGTH (0.125%) 480 ML BOTTLE TOP SCH (09:12)
[2021-09-11 16:00] VITALS: BP 133/70
[2021-09-11] MEDS: PROSTAT (PYXIS) 30 ML UDC GT SCH (18:00)
--- NOTE | 2021-09-11 18:30 | NUR ---
MS RN CLOSING NOTES PATIENT IN BED A/O X 0 (BASELINE), TOLERATING WELL ON ROOM AIR. BREATHING EVEN AND UNLABORED WITH NO S/S OF DISTRESS AT THIS TIME. R HAND 20G WITH NS @ 75 ML/HR AND G-TUBE WITH JEVITY 1.2 @ 55 ML/HR BOTH INFUSING WELL. BILATERAL LEG PUMPS IN PLACE AND INFLATING NORMALLY. ALL NEEDS MET. SAFETY MEASURES IN PLACE: BED IN LOWEST LOCKED POSITION, SIDE RAILS UP X 2, CALL LIGHT WITHIN REACH. WILL ENDORSE TO INSPECTOR BALANCE TRUING FOR DONG.
[2021-09-11] MEDS: ASCORBIC ACID 500 MG TABLET GT SCH (18:32)
[2021-09-11] MEDS: MULTIVIT W/MINERALS 1 TAB TABLET GT SCH (18:32)
--- NOTE | 2021-09-11 19:30 | NUR ---
RN OPENING NOTE PATIENT IN BED, EYES CLOSED. PATIENT NONVERBAL, OPENS EYES WITH VERBAL AND TOUCH STIMULI, AWAKE. PATIENT IS CURRENTLY ON RA, TOLERATING WELL. NO SOB, NOT IN ANY RESPIRATORY DISTRESS. PATIENT DOES NOT SEEM TO BE IN PAIN FLACC. LYNN CATHETER PRESENT WITH YELLOW URINE DRAINING VIA GRAVITY. PATIENT HAS A R HAND 20 G WITH NS @ 75 ML/HR. G TUBE PATENT AND INTACT, RESIDUAL 5 ML. JEVITY AT 55 ML/HR, TOLERATING WELL. SAFETY MEASURES IN PLACE: BED LOCKED AND IN LOWEST POSITION, CALL LIGHT WITHIN REACH, SIDE RAILS UP, ASPIRATION PRECAUTIONS. WILL MONITOR PATIENT CLOSELY.
[2021-09-11 20:15] VITALS: BP 138/69
[2021-09-11] MEDS: ACETAMINOPHEN 650 MG/20.3 ML UDC GT PRN (20:25)
--- NOTE | 2021-09-11 20:25 | NUR ---
RN NOTE TYLENOL GIVEN FOR TEMP 100.5. COOLING MEASURES INITIATED. WILL REASSESS TEMP AT A LATER TIME
[2021-09-11] MEDS: POLYETHYLENE GLYCOL 3350 17 GM POWD.PACK PO SCH (22:18)
[2021-09-11] MEDS: OLANZAPINE 2.5 MG TABLET GT SCH (22:18)
[2021-09-12] MEDS: MEROPENEM 1 G in IV NS 0.9% 100 ML IV SCH ×3 (05:02→21:09)
[2021-09-12] MEDS: IV NS 0.9% 1,000 ML IV PRN (05:10)
[2021-09-12 06:34] LABS: BASOPHILS # (AUTO) 0.1 K/uL (0.0-0.2); BASOPHILS % (AUTO) 0.9 % (0.0-2.0); EOSINOPHILS % (AUTO) 2.7 % (0.0-6.0); HEMATOCRIT 24 % (33-45); HEMOGLOBIN 7.6 g/dL (11.5-14.8); LYMPHOCYTES # (AUTO) 1.2 K/uL (0.8-4.8); LYMPHOCYTES % (AUTO) 18.5 % (20.0-44.0); MEAN CORPUSCULAR HGB CONC 32 g/dl (31.0-36.0); MEAN CORPUSCULAR VOLUME 64 fL (82-100); MONOCYTES # (AUTO) 0.4 K/uL (0.1-1.30); MONOCYTES % (AUTO) 6.8 % (2.0-12.0); NEUTROPHILS # (AUTO) 4.7 K/uL (1.8-8.9); NEUTROPHILS % (AUTO) 71.1 % (43.0-81.0); PLATELET COUNT (AUTO) 728 K/uL (150-450); RED BLOOD CELL COUNT(AUTO) 3.76 MIL/uL (4.0-5.2); WHITE BLOOD COUNT (AUTO) 6.6 K/uL (4.3-11.0)
--- NOTE | 2021-09-12 06:50 | NUR ---
RN CLOSING NOTE PATIENT IN BED, EYES CLOSED. PATIENT NONVERBAL, OPENS EYES WITH VERBAL AND TOUCH STIMULI, AWAKE. PATIENT IS CURRENTLY ON RA, TOLERATING WELL. NO SOB, NOT IN ANY RESPIRATORY DISTRESS. PATIENT DOES NOT SEEM TO BE IN PAIN FLACC. LYNN CATHETER PRESENT WITH YELLOW URINE DRAINING VIA GRAVITY. PATIENT HAS A LFA 22 G WITH NS @ 75 ML/HR. G TUBE PATENT AND INTACT. JEVITY AT 55 ML/HR, TOLERATING WELL. WOUND CARE RENDERED. SAFETY MEASURES IN PLACE: BED LOCKED AND IN LOWEST POSITION, CALL LIGHT WITHIN REACH, SIDE RAILS UP, ASPIRATION PRECAUTIONS. ALL NEEDS MET AND ATTENDED. ALL ORDERS CARRIED OUT. WILL ENDORSE TO DAY SHIFT NURSE FOR DONG
[2021-09-12 06:58] LABS: CALCIUM, SERUM 8.3 mg/dL (8.5-10.1); CREATININE 0.6 mg/dL (0.6-1.3); POTASSIUM 3.6 mmol/L (3.5-5.1)
[2021-09-12 08:00] VITALS: BP 145/70
--- NOTE | 2021-09-12 08:04 | NUR ---
MS/RN OPENING NOTE RECEIVED PATIENT IN BED, EYES CLOSED. PATIENT NONVERBAL, OPENS EYES WITH VERBAL AND TOUCH STIMULI, AWAKE. PATIENT IS CURRENTLY ON ROOM AIR, TOLERATING WELL. NO SOB. PATIENT DOES NOT SEEM TO BE IN PAIN FLACC. LYNN CATHETER PRESENT WITH YELLOW URINE DRAINING VIA GRAVITY. PATIENT HAS A LFA 22 G WITH NS @ 75 ML/HR. G TUBE PATENT AND INTACT. JEVITY AT 55 ML/HR, TOLERATING WELL. SAFETY MEASURES IN PLACE: BED LOCKED AND IN LOWEST POSITION, CALL LIGHT WITHIN REACH, SIDE RAILS UP, ASPIRATION PRECAUTIONS. WILL CONTINUE WITH THE PLAN OF CARE.
[2021-09-12] MEDS: DOCUSATE SODIUM 100 MG CAPSULE PO SCH ×2 (09:00→09:13)
[2021-09-12] MEDS: DIVALPROEX SODIUM 125 MG CAP.SPRINK GT SCH ×3 (09:13→17:20)
[2021-09-12] MEDS: FERROUS SULFATE (325 MG) 325 MG/TAB TABLET GT SCH ×2 (09:13→17:21)
[2021-09-12] MEDS: hydrALAZINE HCL 25 MG TABLET GT SCH ×2 (09:13→21:08)
[2021-09-12] MEDS: AMLODIPINE BESYLATE 10 MG TABLET GT SCH (09:14)
[2021-09-12] MEDS: DAKINS QUARTER STRENGTH (0.125%) 480 ML BOTTLE TOP SCH (09:14)
[2021-09-12] MEDS: DOCUSATE SODIUM LIQ 100 MG/10 ML UDC GT SCH ×2 (09:34→17:20)
[2021-09-12] MEDS: VANCOMYCIN 0.75 GM in IV D5W 250 ML IV SCH ×2 (12:17→23:16)
--- NOTE | 2021-09-12 15:59 | NUR ---
DEBRIDEMENT ON THE SACRUM DONE AT BEDSIDE BY EL SANCHEZ. BONE BIOPSY SENT TO THE LAB TO TEST FOR OSTEOMYELITIS.
[2021-09-12 16:00] VITALS: BP 137/83
[2021-09-12] MEDS: HYDROCODONE/APAP 10/325MG TABLET PO PRN (17:20)
[2021-09-12] MEDS: MULTIVIT W/MINERALS 1 TAB TABLET GT SCH (17:20)
[2021-09-12] MEDS: ASCORBIC ACID 500 MG TABLET GT SCH (17:21)
[2021-09-12] MEDS: PROSTAT (PYXIS) 30 ML UDC GT SCH (17:24)
--- NOTE | 2021-09-12 18:47 | NUR ---
MS/RN CLOSING NOTE PATIENT IN BED, AWAKE. PATIENT NONVERBAL. PATIENT IS CURRENTLY ON ROOM AIR, TOLERATING WELL. NO SOB. PATIENT DOES NOT SEEM TO BE IN PAIN FLACC. LYNN CATHETER PRESENT WITH YELLOW URINE DRAINING VIA GRAVITY. PATIENT HAS A LEFT FA #22G WITH NS @ 75 ML/HR. G-TUBE PATENT AND INTACT WITH A RUNNING JEVITY @55 ML/HR, TOLERATING WELL. ALL NEEDS MET. KEPT PATIENT COMFORTABLE ALL THROUGHOUT THE SHIFT. SAFETY MEASURES IN PLACE: BED LOCKED AND IN LOWEST POSITION, CALL LIGHT WITHIN REACH, SIDE RAILS UP, ASPIRATION PRECAUTIONS. WILL ENDORSE TO THE NEXT SHIFT FOR CONTINUITY OF CARE.
--- NOTE | 2021-09-12 19:45 | NUR ---
MS RN OPENING NOTES PATIENT RECEIVED IN BED, AWAKE, A/OX0, NON-VERBAL; PATIENT BREATHING EVEN AND UNLABORED; NO SOB NOTED; PATIENT TOLERATING ROOM AIR WELL; L FA #22 INTACT, TOLERATING IVF WELL, NO S/S OF REDNESS OR INFILTRATION NOTED; PATIENT HAS G-TUBE IN PLACE; TOLERATING JEVITY 1.2 SEVERO @ 55ML/HR; PATIENT RECEIVED SACRAL DEBRIDEMENT EARLIER TODAY; LYNN CATH IN PLACE WITH YELLOWISH OUTPUT; SAFETY PRECAUTIONS IMPLEMENTED; BED LOCKED IN LOW POSITION; SIDE RAILS X2, WILL CONT TO MONITOR AND CONT PLAN OF CARE
[2021-09-12 20:00] VITALS: BP 136/78
[2021-09-12] MEDS: OLANZAPINE 2.5 MG TABLET GT SCH (21:08)
[2021-09-12] MEDS: POLYETHYLENE GLYCOL 3350 17 GM POWD.PACK PO SCH (21:08)
[2021-09-12] MEDS: ACETAMINOPHEN 650 MG/20.3 ML UDC GT PRN (21:14)
[2021-09-12] MEDS: JEVITY 1.2 CAL 1,000 ML BOTTLE GT PRN (23:16)
[2021-09-13] MEDS: IV NS 0.9% 1,000 ML IV PRN (01:51)
[2021-09-13 04:00] VITALS: BP 140/52
[2021-09-13] MEDS: MEROPENEM 1 G in IV NS 0.9% 100 ML IV SCH ×3 (04:09→21:49)
--- NOTE | 2021-09-13 04:50 | NUR ---
MS RN NOTES WOUND TX RENDERED ORDERED;
--- NOTE | 2021-09-13 06:48 | NUR ---
MS RN CLOSING NOTES PATIENT IN BED, AWAKE, A/OX0, NON-VERBAL; PATIENT BREATHING EVEN AND UNLABORED; NO SOB NOTED; PATIENT NOTED TO GRIND TEETH; PATIENT TOLERATING ROOM AIR WELL; L FA #22 INTACT, TOLERATING IVF WELL, NO S/S OF REDNESS OR INFILTRATION NOTED; PATIENT HAS G-TUBE IN PLACE; TOLERATING JEVITY 1.2 SEVERO @ 55ML/HR; LYNN CATH IN PLACE WITH YELLOWISH OUTPUT; ALL NEEDS RENDERED PER ORDERS; SAFETY PRECAUTIONS IMPLEMENTED; BED LOCKED IN LOW POSITION; SIDE RAILS X2, WILL ENDORSE DONG TO ONCOMING SHIFT
[2021-09-13 07:23] LABS: BASOPHILS % (AUTO) 0.2 % (0.0-2.0); EOSINOPHILS % (AUTO) 1.4 % (0.0-6.0); HEMATOCRIT 26 % (33-45); HEMOGLOBIN 8.1 g/dL (11.5-14.8); LYMPHOCYTES # (AUTO) 1.2 K/uL (0.8-4.8); LYMPHOCYTES % (AUTO) 13.3 % (20.0-44.0); MEAN CORPUSCULAR HGB CONC 31 g/dl (31.0-36.0); MEAN CORPUSCULAR VOLUME 65 fL (82-100); MONOCYTES # (AUTO) 0.5 K/uL (0.1-1.30); MONOCYTES % (AUTO) 5.5 % (2.0-12.0); NEUTROPHILS % (AUTO) 79.6 % (43.0-81.0); PLATELET COUNT (AUTO) 781 K/uL (150-450); RED BLOOD CELL COUNT(AUTO) 3.98 MIL/uL (4.0-5.2); WHITE BLOOD COUNT (AUTO) 8.8 K/uL (4.3-11.0)
[2021-09-13 07:40] LABS: CALCIUM, SERUM 8.4 mg/dL (8.5-10.1); CREATININE 0.7 mg/dL (0.6-1.3); POTASSIUM 3.7 mmol/L (3.5-5.1)
[2021-09-13 08:00] VITALS: BP 142/78
[2021-09-13] MEDS: FERROUS SULFATE (325 MG) 325 MG/TAB TABLET GT SCH ×2 (09:07→17:08)
[2021-09-13] MEDS: DOCUSATE SODIUM LIQ 100 MG/10 ML UDC GT SCH ×2 (09:07→17:07)
[2021-09-13] MEDS: DIVALPROEX SODIUM 125 MG CAP.SPRINK GT SCH ×3 (09:07→17:08)
[2021-09-13] MEDS: DAKINS QUARTER STRENGTH (0.125%) 480 ML BOTTLE TOP SCH (09:08)
[2021-09-13] MEDS: hydrALAZINE HCL 25 MG TABLET GT SCH ×2 (09:08→21:45)
[2021-09-13] MEDS: AMLODIPINE BESYLATE 10 MG TABLET GT SCH (09:08)
[2021-09-13 10:19] LABS: IRON, SERUM 12 ug/dl (50-175); TOTAL IRON BINDING CAPACITY 149 ug/dl (250-450)
[2021-09-13 10:41] LABS: FERRITIN 158 ng/mL (8-388)
[2021-09-13] MEDS: VANCOMYCIN 0.75 GM in IV D5W 250 ML IV SCH (12:35)
[2021-09-13] MEDS: HYDROCODONE/APAP 10/325MG TABLET PO PRN (12:42)
--- NOTE | 2021-09-13 15:00 | NUR ---
CALLED PHARMACY AND SPOKE TO FLEX, NOTIFIED HIM THAT I AM READY TO HANG FERRLECIT.
[2021-09-13 16:00] VITALS: BP 125/64
[2021-09-13] MEDS: SOD FERRIC GLUC 125 MG in IV NS 0.9% 100 ML IV SCH (16:27)
[2021-09-13] MEDS: MULTIVIT W/MINERALS 1 TAB TABLET GT SCH (17:36)
[2021-09-13] MEDS: PROSTAT (PYXIS) 30 ML UDC GT SCH (17:36)
[2021-09-13] MEDS: ASCORBIC ACID 500 MG TABLET GT SCH (17:36)
--- NOTE | 2021-09-13 19:30 | NUR ---
MS RN OPENING NOTES PATIENT RECEIVED IN BED, AWAKE, A/OX0, NON-VERBAL; PATIENT BREATHING EVEN AND UNLABORED; NO SOB NOTED; PATIENT TOLERATING ROOM AIR WELL; L FA #22 INTACT, TOLERATING IVF WELL, NO S/S OF REDNESS OR INFILTRATION NOTED; PATIENT HAS G-TUBE IN PLACE; TOLERATING JEVITY 1.2 SEVERO @ 55ML/HR; YANELI SANCHEZ CHANGED WOUND DRESSING EARLY TODAY; LYNN CATH IN PLACE WITH YELLOWISH OUTPUT; SAFETY PRECAUTIONS IMPLEMENTED; BED LOCKED IN LOW POSITION; SIDE RAILS X2, WILL CONT TO MONITOR AND CONT PLAN OF CARE
[2021-09-13 20:00] VITALS: BP_SYST 136; BP_SYST 140; BP_DIAS 69; BP_DIAS 73
[2021-09-13] MEDS: POLYETHYLENE GLYCOL 3350 17 GM POWD.PACK PO SCH (21:45)
[2021-09-13] MEDS: OLANZAPINE 2.5 MG TABLET GT SCH (21:45)
--- NOTE | 2021-09-13 23:28 | NUR ---
MS RN NOTES INDUSTRIAL TECHNOLOGY TEACHER AT BED SIDE FOR VANCO TROUGH BLOOD DRAW; AWAITING RESULTS PRIOR TO ADMINISTRATION OF SCHEDULED VANCO IVPB; CHARGE NURSE AWARE
[2021-09-14] MEDS: IV NS 0.9% 1,000 ML IV PRN (00:04)
--- NOTE | 2021-09-14 00:47 | NUR ---
MS RN NOTES SPOKE WITH LAB REGARDING RESULTS OF VANCO TROUGH; WILL CALL BACK ONCE RESULTED; CHARGE NURSE AWARE; AWAITING RESULTS. UNABLE TO ADMINISTER VANCO IVPB UNTIL VANCO TROUGH IS RESULTED
[2021-09-14] MEDS: VANCOMYCIN 0.75 GM in IV D5W 250 ML IV SCH ×2 (00:58→12:43)
--- NOTE | 2021-09-14 00:58 | NUR ---
MS RN NOTES PATIENT VANCO TROUGH 14, VANCO IVPB ADMINISTERED ORDERED
[2021-09-14] MEDS: MEROPENEM 1 G in IV NS 0.9% 100 ML IV SCH ×3 (04:09→21:49)
[2021-09-14] MEDS: JEVITY 1.2 CAL 1,000 ML BOTTLE GT PRN ×2 (04:09→12:42)
--- NOTE | 2021-09-14 05:55 | NUR ---
MS RN NOTES WOUND TX RENDERED ORDERED; WILL CONT TO MONITOR FOR CHANGES; WILL ENDORSE PRN WOUND CARE TO ONCOMING SHIFT
--- NOTE | 2021-09-14 07:19 | NUR ---
MS RN OPENING NOTE RECEIVED PATIENT ASLEEP ON BED, PATIENT IS NON-VERBAL. NO SIGNS AND SYMPTOMS OF PAIN OR DISCOMFORT AT THIS TIME. ON ROOM AIR WITH EQUAL AND UNLABORED BREATHING, TOLERATED WELL, WITH NO SOB/DISTRESS NOTED. WITH IV ACCESS ON LEFT FOREARM WITH IVF OF NS @ 75 ML/HR INFUSING WELL. WITH G-TUBE ON JEVITY 1.2 RUNNING AT 55ML/HR, TOLERATED WELL. WITH LYNN CATHETER TO URINE BAG WITH LIGHT YELLOW URINE. COMFORT MEASURES PROVIDED. FALL AND SAFETY PRECAUTIONS MAINTAINED WITH LOW BED AND LOCKED, BED ALARM AND SIDERAILS ON. CALL LIGHT WITHIN REACH. WILL CONTINUE TO MONITOR PATIENT.
[2021-09-14] MEDS: DOCUSATE SODIUM LIQ 100 MG/10 ML UDC GT SCH ×2 (08:20→17:29)
[2021-09-14] MEDS: FERROUS SULFATE (325 MG) 325 MG/TAB TABLET GT SCH ×2 (08:20→17:29)
[2021-09-14] MEDS: AMLODIPINE BESYLATE 10 MG TABLET GT SCH (08:21)
[2021-09-14] MEDS: hydrALAZINE HCL 25 MG TABLET GT SCH ×2 (08:21→21:51)
[2021-09-14] MEDS: DIVALPROEX SODIUM 125 MG CAP.SPRINK GT SCH ×3 (08:21→17:29)
[2021-09-14 08:27] VITALS: BP 146/57
[2021-09-14 08:38] LABS: CALCIUM, SERUM 8.5 mg/dL (8.5-10.1); CREATININE 0.6 mg/dL (0.6-1.3); POTASSIUM 3.9 mmol/L (3.5-5.1)
--- NOTE | 2021-09-14 08:40 | NUR ---
MS RN NOTE PATIENT SEEN BY DR. WILSON. WILL CONTINUE TO MONITOR PATIENT.
[2021-09-14] MEDS: SOD FERRIC GLUC 125 MG in IV NS 0.9% 100 ML IV SCH (14:54)
[2021-09-14] MEDS: DAKINS QUARTER STRENGTH (0.125%) 480 ML BOTTLE TOP SCH (14:58)
[2021-09-14 16:12] VITALS: BP 124/56
[2021-09-14] MEDS: MULTIVIT W/MINERALS 1 TAB TABLET GT SCH (17:29)
[2021-09-14] MEDS: ASCORBIC ACID 500 MG TABLET GT SCH (17:29)
[2021-09-14] MEDS: ACETAMINOPHEN 650 MG/20.3 ML UDC GT PRN (17:29)
[2021-09-14] MEDS: PROSTAT (PYXIS) 30 ML UDC GT SCH (17:33)
--- NOTE | 2021-09-14 18:50 | NUR ---
MS RN CLOSING NOTE PATIENT ASLEEP ON BED, PATIENT IS NON-VERBAL. NO SIGNS AND SYMPTOMS OF PAIN OR DISCOMFORT AT THIS TIME. ON ROOM AIR WITH EQUAL AND UNLABORED BREATHING, TOLERATED WELL, WITH NO SOB/DISTRESS NOTED. WITH IV ACCESS ON LEFT FOREARM WITH IVF OF NS @ 75 ML/HR INFUSING WELL. WITH G-TUBE ON JEVITY 1.2 RUNNING AT 55ML/HR, TOLERATED WELL. WITH LYNN CATHETER TO URINE BAG WITH LIGHT YELLOW URINE. WITH TEMPERATURE OF 100.5, TYLENOL GIVEN AT 1729, COOLING MEASURES DONE. COMFORT MEASURES PROVIDED. FALL AND SAFETY PRECAUTIONS MAINTAINED WITH LOW BED AND LOCKED, BED ALARM AND SIDERAILS ON. CALL LIGHT WITHIN REACH. WILL ENDORSE TO NEXT SHIFT FOR CONTINUITY OF CARE.
--- NOTE | 2021-09-14 19:45 | NUR ---
MS RN OPENING NOTES PATIENT RECEIVED IN BED, AWAKE. PATIENT IS A/OX0, NON-VERBAL. PATIENT BREATHING EVEN AND UNLABORED WITH EQUAL RISE AND FALL OF THE CHEST, ON ROOM AIR. NO S/S OF DISTRESS NOTED. L FA #22 INTACT, TOLERATING IVF WELL, NO S/S OF REDNESS OR INFILTRATION NOTED. G-TUBE IN PLACE, TOLERATING JEVITY 1.2 SEVERO @ 55ML/HR. LYNN CATH IN PLACE WITH YELLOWISH OUTPUT. SAFETY PRECAUTIONS IMPLEMENTED, BED LOCKED IN LOW POSITION, SIDE RAILS X2 FOR SAFETY. WILL CONTINUE TO MONITOR.
[2021-09-14 20:00] VITALS: BP 133/66
[2021-09-14] MEDS: OLANZAPINE 2.5 MG TABLET GT SCH (21:51)
[2021-09-14] MEDS: POLYETHYLENE GLYCOL 3350 17 GM POWD.PACK PO SCH (21:52)
[2021-09-15] MEDS: VANCOMYCIN 0.75 GM in IV D5W 250 ML IV SCH ×2 (00:13→12:07)
[2021-09-15] MEDS: IV NS 0.9% 1,000 ML IV PRN ×2 (04:14→20:54)
[2021-09-15] MEDS: MEROPENEM 1 G in IV NS 0.9% 100 ML IV SCH ×3 (04:17→21:24)
--- NOTE | 2021-09-15 07:10 | NUR ---
MS RN CLOSING NOTES PATIENT IN BED, AWAKE. PATIENT IS A/OX0, NON-VERBAL. BREATHING EVEN AND UNLABORED WITH EQUAL RISE AND FALL OF THE CHEST, ON ROOM AIR. NO S/S OF DISTRESS NOTED. L FA #22 INTACT, TOLERATING IVF WELL, NO S/S OF REDNESS OR INFILTRATION NOTED. G-TUBE IN PLACE, TOLERATING JEVITY 1.2 SEVERO @ 55ML/HR. LYNN CATH IN PLACE WITH YELLOWISH OUTPUT. SAFETY PRECAUTIONS IMPLEMENTED, BED LOCKED IN LOW POSITION, SIDE RAILS X2 FOR SAFETY. WILL CONTINUE TO MONITOR AND ENDORSE TO AM SHIFT.
[2021-09-15 07:17] LABS: CALCIUM, SERUM 8.1 mg/dL (8.5-10.1); CREATININE 0.6 mg/dL (0.6-1.3); POTASSIUM 3.9 mmol/L (3.5-5.1)
--- NOTE | 2021-09-15 07:30 | NUR ---
RN-NOTES RECEIVED PATIENT LYING IN BED SLEEPING WITH BREATHING EVEN AND NONLABORED NO ACUTE DISTRESS NOTED. PATIENT ON NS IV FLUID @ 75 MG/HR INFUSING WELL. IV SITE ON RA #18 INTACT NO S/S OF COMPLICATION NOTED ON THE SITE. PATIENT WITH ONGOING G-TUBE FEEING OF JEVITY 1.2 @ 55ML/HR INFUSING WELL. NO S/S OF COMPLICATIONS ON THE G-TUBE SITE .NEEDS MAXIMUM ASSIST WITH ADL'S AND REPOSITIONING. ALL NEEDS ATTENDED AND ANTICIPATED,WILL CONT. MONITORING .
[2021-09-15 08:00] VITALS: BP 137/70
[2021-09-15 09:37] LABS: BASOPHILS % (AUTO) 0.5 % (0.0-2.0); EOSINOPHILS % (AUTO) 4.7 % (0.0-6.0); HEMATOCRIT 25 % (33-45); HEMOGLOBIN 7.9 g/dL (11.5-14.8); LYMPHOCYTES # (AUTO) 1.3 K/uL (0.8-4.8); LYMPHOCYTES % (AUTO) 17.8 % (20.0-44.0); MEAN CORPUSCULAR HGB CONC 31 g/dl (31.0-36.0); MEAN CORPUSCULAR VOLUME 65 fL (82-100); MONOCYTES # (AUTO) 0.6 K/uL (0.1-1.30); MONOCYTES % (AUTO) 8.1 % (2.0-12.0); NEUTROPHILS % (AUTO) 68.9 % (43.0-81.0); PLATELET COUNT (AUTO) 718 K/uL (150-450); RED BLOOD CELL COUNT(AUTO) 3.91 MIL/uL (4.0-5.2); WHITE BLOOD COUNT (AUTO) 7.2 K/uL (4.3-11.0)
[2021-09-15] MEDS: FERROUS SULFATE (325 MG) 325 MG/TAB TABLET GT SCH ×2 (09:37→17:50)
[2021-09-15] MEDS: DIVALPROEX SODIUM 125 MG CAP.SPRINK GT SCH ×3 (09:37→17:50)
[2021-09-15] MEDS: DOCUSATE SODIUM LIQ 100 MG/10 ML UDC GT SCH ×2 (09:38→17:50)
[2021-09-15] MEDS: AMLODIPINE BESYLATE 10 MG TABLET GT SCH (09:39)
[2021-09-15] MEDS: hydrALAZINE HCL 25 MG TABLET GT SCH ×2 (09:39→21:25)
[2021-09-15] MEDS: DAKINS QUARTER STRENGTH (0.125%) 480 ML BOTTLE TOP SCH (09:46)
--- NOTE | 2021-09-15 11:16 | NUR ---
RN-NOTES OBTAINED A TELEPHONE CONSENT FROM ZULLY ESPAÑA ( PT'S SON) FOR THE PICC INSERTION, WITNESS BY ERICK ( CHARGE NURSE).
[2021-09-15] MEDS: SOD FERRIC GLUC 125 MG in IV NS 0.9% 100 ML IV SCH (14:38)
--- NOTE | 2021-09-15 15:00 | NUR ---
RN-NOTES RELAYED WOUND CULTURE RESULTS TO DR. CORDON . Addendum: 09/15/21 at 1841 by ADE MAURO RN LILY GUARDADO ( INFECTIOUS) AND ALON LUKE MADE AWARE OF THE WOUND CULTURE
[2021-09-15] MEDS: JEVITY 1.2 CAL 1,000 ML BOTTLE GT PRN (15:51)
[2021-09-15 16:00] VITALS: BP 152/73
[2021-09-15] MEDS: ASCORBIC ACID 500 MG TABLET GT SCH (17:50)
[2021-09-15] MEDS: MULTIVIT W/MINERALS 1 TAB TABLET GT SCH (17:50)
[2021-09-15] MEDS: PROSTAT (PYXIS) 30 ML UDC GT SCH (17:53)
--- NOTE | 2021-09-15 18:19 | NUR ---
RN-NOTES RECEIVED TO FROM DR. CORDON OF BILATERAL SOFT WRIST RESTRAIN FOR THE PATIENT TO PREVENT HER FROM PULLING THE LINE.
--- NOTE | 2021-09-15 19:00 | NUR ---
RN-NOTES PATIENT WAS VERY CALM,NO EPISODE OF PULLING HER PICC LINE. DR. OVIEDO MADE AWARE WITH T.O ORDER TO D/C SOFT WRIST RESTRAIN .NOTED AND CARRIED OUT.
--- NOTE | 2021-09-15 19:30 | NUR ---
MS RN OPENING NOTES RECEIVED PATIENT ON BED; AWAKE, ALERT AND ORIENTED X 0; NONVERBAL. BREATHING EVENLY AND UNLABORED. NO SOB NOTED. NO S/SX OF DISTRESS NOTED. ON ROOM AIR, TOLERATING WELL. WITH IVF OF 0.9% NS 1L @ RIGHT FOREARM; INFUSING AT 75ML/HR; PATENT AND INTACT. WITH PICC LINE ON RIGHT UPPER ARM F #4; CLEAN AND DRY. WITH G-TUBE IN PLACED WITH JEVITY 1.2 SEVERO @55ML/HR. LYNN CATHETER IN PLACED WITH YELLOW URINE OUTPUT. NOTED BLISTER ON RIGHT ANTERIOR THIGH. SAFETY PRECAUTIONS IMPLEMENTED. CALL LIGHT WITHIN REACH. SIDE RAILS UP X 2. HEAD OF BED ELEVATED. BED PLACED IN LOWEST LOCKED POSITION. WILL CONTINUE TO MONITOR.
--- NOTE | 2021-09-15 19:42 | NUR ---
RN-NOTES PATIENT LYING IN BED AWAKE,ALERT ,NON VERBAL ABLE TO OPEN BOTH EYES.NO ACUTE DISTRESS NOTED. PATIENT ON NS IV FLUID @ 75 MG/HR INFUSING WELL. IV SITE ON RA #18 INTACT NO S/S OF COMPLICATION NOTED ON THE SITE.PICC LINE ON R UA #5 CROATIAN DOUBLE LUMEN,INTACT NO BLEEDING NOTED ON THE SITE . PATIENT WITH ONGOING G-TUBE FEEING OF JEVITY 1.2 @ 55ML/HR INFUSING WELL. NO S/S OF COMPLICATIONS ON THE G-TUBE SITE .NEEDS MAXIMUM ASSIST WITH ADL'S AND REPOSITIONING. ALL NEEDS ATTENDED AND ANTICIPATED. ENDORSED TO THE INCOMING NURSE FOR CONTINUITY OF CARE AND MONITORING .
[2021-09-15 20:00] VITALS: BP_SYST 127; BP_SYST 137; BP_DIAS 67; BP_DIAS 73
--- NOTE | 2021-09-15 20:30 | NUR ---
MS RN NOTES PINKISH BLISTER NOTED ON RIGHT ANTERIOR THIGH DURING BEDSIDE CARE. CLEANSED THE AREA WITH NORMAL SALINE AND PAT DRY.
[2021-09-15] MEDS: POLYETHYLENE GLYCOL 3350 17 GM POWD.PACK PO SCH (22:00)
[2021-09-15] MEDS: OLANZAPINE 2.5 MG TABLET GT SCH (22:37)
[2021-09-16] MEDS: VANCOMYCIN 0.75 GM in IV D5W 250 ML IV SCH (00:30)
[2021-09-16] MEDS: MEROPENEM 1 G in IV NS 0.9% 100 ML IV SCH (04:39)
--- NOTE | 2021-09-16 06:25 | NUR ---
MS RN CLOSING NOTES PATIENT IS ON BED, AWAKE, ALERT AND ORIENTED X 0. BREATHING IS EVEN AND NONLABORED. NO SOB NOTED. NO S/SX OF DISTRESS NOTED. ON ROOM AIR, WELL TOLERATED. WITH IV ACCESS ON RIGHT FOREARM G18 OF NS 1L @ 75ML/HR; PATENT AND INTACT. WITH PICC LINE FR #4 @ NOE; DRY AND INTACT. SAFETY MEASURES MAINTAINED. CALL LIGHT WITHIN REACH. SIDE RAILS UP X 2. BED IS IN LOWEST LOCKED POSITION. WILL ENDORSED TO MORNING SHIFT FOR CONTINUITY OF CARE.
[2021-09-16 08:00] VITALS: BP 131/88
[2021-09-16 08:20] LABS: BASOPHILS # (AUTO) 0.1 K/uL (0.0-0.2); BASOPHILS % (AUTO) 0.9 % (0.0-2.0); EOSINOPHILS % (AUTO) 3.1 % (0.0-6.0); HEMATOCRIT 26 % (33-45); LYMPHOCYTES # (AUTO) 1.3 K/uL (0.8-4.8); LYMPHOCYTES % (AUTO) 17.7 % (20.0-44.0); MEAN CORPUSCULAR HGB CONC 31 g/dl (31.0-36.0); MEAN CORPUSCULAR VOLUME 67 fL (82-100); MONOCYTES # (AUTO) 0.6 K/uL (0.1-1.30); MONOCYTES % (AUTO) 7.6 % (2.0-12.0); NEUTROPHILS # (AUTO) 5.4 K/uL (1.8-8.9); NEUTROPHILS % (AUTO) 70.7 % (43.0-81.0); PLATELET COUNT (AUTO) 732 K/uL (150-450); RED BLOOD CELL COUNT(AUTO) 3.95 MIL/uL (4.0-5.2); WHITE BLOOD COUNT (AUTO) 7.6 K/uL (4.3-11.0)
[2021-09-16 10:08] LABS: CALCIUM, SERUM 8.9 mg/dL (8.5-10.1); CREATININE 0.7 mg/dL (0.6-1.3); POTASSIUM 3.8 mmol/L (3.5-5.1)
[2021-09-16] MEDS: hydrALAZINE HCL 25 MG TABLET GT SCH (10:19)
[2021-09-16] MEDS: FERROUS SULFATE (325 MG) 325 MG/TAB TABLET GT SCH (10:19)
[2021-09-16] MEDS: DOCUSATE SODIUM LIQ 100 MG/10 ML UDC GT SCH (10:19)
[2021-09-16] MEDS: DIVALPROEX SODIUM 125 MG CAP.SPRINK GT SCH ×2 (10:19→13:19)
[2021-09-16] MEDS: AMLODIPINE BESYLATE 10 MG TABLET GT SCH (10:20)
[2021-09-16] MEDS: DAKINS QUARTER STRENGTH (0.125%) 480 ML BOTTLE TOP SCH (10:26)
[2021-09-16] MEDS ORDERED: FERR325T28 GT (12:21)
[2021-09-16] MEDS ORDERED: AMPICILLIN 1 GM in IV NS 0.9% 50 ML IV SCH (13:00)
[2021-09-16] MEDS: SOD FERRIC GLUC 125 MG in IV NS 0.9% 100 ML IV SCH (14:00)
--- NOTE | 2021-09-16 14:15 | NUR ---
MS/RN ANGEL NOT ADMINISTERED D/T PT BEING DISCHARGED
[2021-09-16 16:00] VITALS: BP 137/73
--- NOTE | 2021-09-16 16:15 | NUR ---
GPS/RN PT DISCHARGED TO [facility] REPORT GIVEN TO SHALOM. EXIT CARE PRESCRIPTIONS PROVIDED. UNABLE TO SIGN /PT IS NON VERBAL A/O X0.
== END 2021-09-16 16:54 | DRG 853 ==
LOC: ER 15:15 → TELE 18:20 → MED 20:08
PROVIDERS: ADMIT Nurse Practitioner Acute Care; ATTEND Internal Medicine
PROC: 0QB10ZZ Excision of Sacrum, Open Approach (ICD-10-PCS; principal; 2021-09-12)
PROC: 02HV33Z Insertion of Infusion Device into Superior Vena Cava, Percutaneous Approach (ICD-10-PCS; 2021-09-15)
PROC: B548ZZA Ultrasonography of Superior Vena Cava, Guidance (ICD-10-PCS; 2021-09-15)
DX: A41.9 Sepsis, unspecified organism (principal); L89.154 Pressure ulcer of sacral region, stage 4; E43 Unspecified severe protein-calorie malnutrition; G93.41 Metabolic encephalopathy; D68.59 Other primary thrombophilia; N39.0 Urinary tract infection, site not specified; M46.28 Osteomyelitis of vertebra, sacral and sacrococcygeal region; R62.7 Adult failure to thrive; M19.90 Unspecified osteoarthritis, unspecified site; R13.10 Dysphagia, unspecified; K21.9 Gastro-esophageal reflux disease without esophagitis; D50.9 Iron deficiency anemia, unspecified; E88.09 Other disorders of plasma-protein metabolism, not elsewhere classified; F03.90 Unspecified dementia, unspecified severity, without behavioral disturbance, psychotic disturbance, mood disturbance, and anxiety; I25.10 Atherosclerotic heart disease of native coronary artery without angina pectoris; I10 Essential (primary) hypertension; Z93.1 Gastrostomy status; K59.00 Constipation, unspecified; Z68.20 Body mass index [BMI] 20.0-20.9, adult; L89.810 Pressure ulcer of head, unstageable; Z20.822 Contact with and (suspected) exposure to COVID-19
CPT/HCPCS: 36415; 71045-TC; 72192-TC; 72193-TC; 80048-TC; 80076-TC; 80202-TC; 81001; 82728-TC; 83540-TC; 83605-TC; 83735-TC; 84100-TC; 84134-TC; 84484-TC; 85025-TC; 85730-TC; 87040-TC; 87070-TC; 87081-TC; 87086-TC; 87186-TC; A4217; A6253; A6403; C9803; G0378; J0290; J0692; J2185; J2916; J3370; J7030; J7050; J7060; Q9967

== ENCOUNTER 2023-02-21 17:20 | Inpatient (IN) | payer MEDICARE, OTHER ==
[~2023-02-21] VITALS: Ht 157.5 cm; Wt 52.2 kg
[~2023-02-21 17:20] MED LIST changes: +AMIN30LI2 GT; +AMLO-213 GT; +ASCO-340 GT; -CARV3.122 PO; +CRAN3875 GT; -CRAN425C6 PO; -DIPH25CA51 PO; +DIVA125C2 GT; -ESCI5TAB PO; +FERR325T28 GT; +HYDR-4076 GT; -MEMA10TA PO; +MULT-447 GT; +NUT.237L30 GT; +OLAN7.5T3 GT; -PANT40TA2 PO; -PIPE3.379 IV; -VANC750F2 IV
[2023-02-21] MEDS ORDERED: ALLA266C2 TP (18:22)
[2023-02-21] MEDS ORDERED: FERR220S2 GT (18:22)
[2023-02-21] MEDS ORDERED: CRAN425C6 GT (18:22)
[2023-02-21] MEDS ORDERED: MAG HYDROX/AL HYDROX/SIMETH 30 ML UDC GT PRN (18:30)
[2023-02-21] MEDS ORDERED: ONDANSETRON HCL/PF 4 MG/2 ML VIAL IVP PRN (18:30)
[2023-02-21] MEDS ORDERED: MORPHINE SULFATE INJ 2 MG/ML DISP.SYRIN IV PRN (18:30)
[2023-02-21] MEDS ORDERED: BISACODYL SUPP (10 MG) 10 MG/SUPP.RECT SUPP.RECT RC PRN (18:30)
[2023-02-21] MEDS ORDERED: ACETAMINOPHEN 650 MG/20.3 ML UDC GT PRN (18:30)
[2023-02-21] MEDS ORDERED: MAGNESIUM HYDROXIDE 30 ML UDC GT PRN (18:30)
[2023-02-21] MEDS ORDERED: MAGNESIUM HYDROXIDE 30 ML UDC PO PRN (18:30)
[2023-02-21] MEDS ORDERED: Z GUARD REMEDY 4 OZ OINT TP PRN (18:30)
[2023-02-21] MEDS ORDERED: ACETAMINOPHEN 325 MG TABLET MC PRN (18:30)
[2023-02-21] MEDS ORDERED: ZOLPIDEM TARTRATE 5 MG TABLET PO PRN (18:30)
[2023-02-21 19:16] LABS: BASOPHILS % (AUTO) 0.8 % (0.0-2.0); EOSINOPHILS # (AUTO) 0.3 K/uL (0.0-0.7); EOSINOPHILS % (AUTO) 6.9 % (0.0-6.0); HEMATOCRIT 37 % (33-45); HEMOGLOBIN 11.7 g/dL (11.5-14.8); INR 1.09 (0.91-1.10); LYMPHOCYTES # (AUTO) 1.1 K/uL (0.8-4.8); LYMPHOCYTES % (AUTO) 27.4 % (20.0-44.0); MEAN CORPUSCULAR HEMOGLOBIN 22 PG (26.0-33.0); MEAN CORPUSCULAR HGB CONC 31 g/dl (31.0-36.0); MEAN CORPUSCULAR VOLUME 69 fL (82-100); MONOCYTES # (AUTO) 0.5 K/uL (0.1-1.30); NEUTROPHILS # (AUTO) 2.1 K/uL (1.8-8.9); NEUTROPHILS % (AUTO) 52.9 % (43.0-81.0); PARTIAL THROMBOPLASTIN TIME 27.5 SEC (24.3-34.3); PLATELET COUNT (AUTO) 299 K/uL (150-450); PROTHROMBIN TIME 11.4 SECS (9.2-11.1); RED BLOOD CELL COUNT(AUTO) 5.41 MIL/uL (4.0-5.2); RED CELL DISTRIBUTION WIDTH 19.3 % (11.5-15.0); WHITE BLOOD COUNT (AUTO) 3.9 K/uL (4.3-11.0)
[2023-02-21 19:19] LABS: BILIRUBIN,TOTAL 0.3 mg/dL (0.2-1.0); CALCIUM, SERUM 9.5 mg/dL (8.5-10.1); CREATININE 0.7 mg/dL (0.6-1.3); POTASSIUM 3.6 mmol/L (3.5-5.1); TOTAL PROTEIN, SERUM 8.2 g/dL (6.4-8.2)
[2023-02-21 20:00] VITALS: BP 155/91; TEMP 98.8; O2SAT 98
[2023-02-21 20:04] LABS: EOSINOPHILS % (MANUAL) 5 % (0-4); LYMPHOCYTES % (MANUAL) 33 % (16-48); MONOCYTES % (MANUAL) 6 % (0-11.0); NEUTROPHILS % (MANUAL) 56 (42-76)
[2023-02-21 20:05] LABS: ANISOCYTOSIS 1+; PLATELET ESTIMATE ADEQUATE; TEAR DROP CELLS 1+
[2023-02-21 21:00] VITALS: BP 155/91; TEMP 98.8; O2SAT 98
[2023-02-21] MEDS: hydrALAZINE HCL 25 MG TABLET GT SCH (21:00)
[2023-02-21] MEDS: OLANZAPINE 2.5 MG TABLET GT SCH (21:27)
[2023-02-21] MEDS: CEFAZOLIN 1 GM in IV D5W 50 ML IV SCH (22:22)
[2023-02-21] MEDS: IV NS 0.9% 1,000 ML IV PRN (22:22)
[2023-02-22] VITALS: BP 161/71; TEMP 97.9; O2SAT 99
[2023-02-22 04:00] VITALS: BP 155/88; TEMP 98.4; O2SAT 100
[2023-02-22] MEDS: CEFAZOLIN 1 GM in IV D5W 50 ML IV SCH ×3 (04:53→21:00)
[2023-02-22 06:49] LABS: BASOPHILS % (AUTO) 0.8 % (0.0-2.0); EOSINOPHILS # (AUTO) 0.3 K/uL (0.0-0.7); EOSINOPHILS % (AUTO) 9.1 % (0.0-6.0); HEMATOCRIT 35 % (33-45); HEMOGLOBIN 10.9 g/dL (11.5-14.8); LYMPHOCYTES # (AUTO) 1.3 K/uL (0.8-4.8); LYMPHOCYTES % (AUTO) 36.6 % (20.0-44.0); MEAN CORPUSCULAR HEMOGLOBIN 22 PG (26.0-33.0); MEAN CORPUSCULAR HGB CONC 32 g/dl (31.0-36.0); MEAN CORPUSCULAR VOLUME 69 fL (82-100); MONOCYTES # (AUTO) 0.5 K/uL (0.1-1.30); MONOCYTES % (AUTO) 14.4 % (2.0-12.0); NEUTROPHILS # (AUTO) 1.4 K/uL (1.8-8.9); NEUTROPHILS % (AUTO) 39.1 % (43.0-81.0); PLATELET COUNT (AUTO) 290 K/uL (150-450); RED BLOOD CELL COUNT(AUTO) 5.04 MIL/uL (4.0-5.2); RED CELL DISTRIBUTION WIDTH 19.6 % (11.5-15.0); WHITE BLOOD COUNT (AUTO) 3.6 K/uL (4.3-11.0)
[2023-02-22 07:04] LABS: INR 1.12 (0.91-1.10); PARTIAL THROMBOPLASTIN TIME 28.3 SEC (24.3-34.3); PROTHROMBIN TIME 11.7 SECS (9.2-11.1)
[2023-02-22 07:22] LABS: CALCIUM, SERUM 9.2 mg/dL (8.5-10.1); CARBON DIOXIDE 25 mmol/L (21-32); CHLORIDE 109 mmol/L (98-107); CREATININE 0.7 mg/dL (0.6-1.3); GLUCOSE 94 mg/dL (74-106); PHOSPHORUS 2.7 mg/dL (2.5-4.9); POTASSIUM 3.4 mmol/L (3.5-5.1); SODIUM SERUM 142 mmol/L (136-145); UREA NITROGEN, BLOOD 20 mg/dL (7-18)
[2023-02-22 08:00] VITALS: BP 159/93; TEMP 98.4; O2SAT 99
[2023-02-22] MEDS ORDERED: JEVITY 1.2 CAL 1,000 ML BOTTLE GT PRN (08:30)
[2023-02-22] MEDS ORDERED: Medication Not On Formulary EA (Cran/Vitc/Mannose/Inulin/Brom (Uti-Stat Liquid) 3,875 MG GT SCH (09:00)
[2023-02-22] MEDS: DIVALPROEX SODIUM 125 MG CAP.SPRINK GT SCH ×3 (09:01→17:00)
[2023-02-22] MEDS: AMLODIPINE BESYLATE 10 MG TABLET GT SCH (09:01)
[2023-02-22] MEDS: DOCUSATE SODIUM LIQ 100 MG/10 ML UDC GT SCH ×2 (09:01→17:00)
[2023-02-22] MEDS: FERROUS SULFATE (325 MG) 325 MG/TAB TABLET GT SCH ×2 (09:01→17:00)
[2023-02-22] MEDS: hydrALAZINE HCL 25 MG TABLET GT SCH ×2 (09:02→21:21)
[2023-02-22] MEDS ORDERED: POTASSIUM CHLORIDE 20 MEQ POWDER PACKET NG SCH (10:30)
[2023-02-22 12:00] VITALS: BP 117/59; TEMP 97.7; O2SAT 98
[2023-02-22] MEDS: DAKINS QUARTER STRENGTH (0.125%) 480 ML BOTTLE TOP SCH (12:27)
[2023-02-22] MEDS ORDERED: VANCOMYCIN 1 GM VIAL ONE (15:05)
[2023-02-22] MEDS ORDERED: BUPIVACAINE 0.5 % PF 150 MG/30 ML VIAL ONE (15:05)
[2023-02-22 16:00] VITALS: BP 113/78; TEMP 101.5; O2SAT 91
[2023-02-22] MEDS ORDERED: IV D5/0.45 NACL W/20 MEQ KCL 1L IV SCH ×2 (17:30)
[2023-02-22] MEDS ORDERED: MULTIVIT W/MINERALS 1 TAB TABLET GT SCH (18:00)
[2023-02-22] MEDS ORDERED: FENTANYL PF 100MCG/2ML AMPUL ONE (18:00)
[2023-02-22] MEDS ORDERED: PROSOURCE / PROSTAT (PYXIS) 30 ML UDC GT SCH (18:00)
[2023-02-22] MEDS ORDERED: ASCORBIC ACID 500 MG TABLET GT SCH (18:00)
[2023-02-22] MEDS ORDERED: MORPHINE SULFATE INJ 4 MG/ML DISP.SYRIN IV PRN (19:00)
[2023-02-22] MEDS ORDERED: HYDROCODONE/APAP 10/325MG TABLET PO PRN (19:00)
[2023-02-22 20:00] VITALS: BP 171/89; TEMP 98.5; O2SAT 95
[2023-02-22] MEDS: OLANZAPINE 2.5 MG TABLET GT SCH (21:21)
[2023-02-22] MEDS: IV NS 0.9% 1,000 ML IV PRN (21:31)
[2023-02-23] MEDS ORDERED: ANCEF 1 GM/50 ML D5W IV SCH ×2 (01:00)
[2023-02-23] MEDS: CEFAZOLIN 1 GM in IV D5W 50 ML IV SCH (05:00)
[2023-02-23 06:14] LABS: BASOPHILS % (AUTO) 0.4 % (0.0-2.0); EOSINOPHILS % (AUTO) 0.1 % (0.0-6.0); HEMATOCRIT 36 % (33-45); HEMOGLOBIN 11.2 g/dL (11.5-14.8); LYMPHOCYTES # (AUTO) 0.8 K/uL (0.8-4.8); LYMPHOCYTES % (AUTO) 19.4 % (20.0-44.0); MEAN CORPUSCULAR HEMOGLOBIN 22 PG (26.0-33.0); MEAN CORPUSCULAR HGB CONC 31 g/dl (31.0-36.0); MEAN CORPUSCULAR VOLUME 71 fL (82-100); MONOCYTES # (AUTO) 0.3 K/uL (0.1-1.30); MONOCYTES % (AUTO) 6.2 % (2.0-12.0); NEUTROPHILS % (AUTO) 73.9 % (43.0-81.0); PLATELET COUNT (AUTO) 255 K/uL (150-450); RED BLOOD CELL COUNT(AUTO) 5.12 MIL/uL (4.0-5.2); RED CELL DISTRIBUTION WIDTH 19.7 % (11.5-15.0); WHITE BLOOD COUNT (AUTO) 4.1 K/uL (4.3-11.0)
[2023-02-23 06:29] LABS: CARBON DIOXIDE 23 mmol/L (21-32); CHLORIDE 111 mmol/L (98-107); CREATININE 0.7 mg/dL (0.6-1.3); GLUCOSE 99 mg/dL (74-106); PHOSPHORUS 3.2 mg/dL (2.5-4.9); POTASSIUM 3.9 mmol/L (3.5-5.1); SODIUM SERUM 143 mmol/L (136-145); UREA NITROGEN, BLOOD 16 mg/dL (7-18)
[2023-02-23 08:31] VITALS: BP 152/78; TEMP 98.2; O2SAT 99
[2023-02-23] MEDS: DIVALPROEX SODIUM 125 MG CAP.SPRINK GT SCH ×2 (08:43→13:17)
[2023-02-23] MEDS: FERROUS SULFATE (325 MG) 325 MG/TAB TABLET GT SCH (08:43)
[2023-02-23] MEDS: AMLODIPINE BESYLATE 10 MG TABLET GT SCH (08:43)
[2023-02-23] MEDS: DOCUSATE SODIUM LIQ 100 MG/10 ML UDC GT SCH (08:43)
[2023-02-23 08:44] VITALS: BP 152/78
[2023-02-23] MEDS: DAKINS QUARTER STRENGTH (0.125%) 480 ML BOTTLE TOP SCH (08:44)
[2023-02-23] MEDS: hydrALAZINE HCL 25 MG TABLET GT SCH (08:44)
[2023-02-23] MEDS ORDERED: JEVITY 1.2 CAL 1,000 ML BOTTLE GT PRN (08:48)
[2023-02-23] MEDS ORDERED: DIVA125C2 GT (10:26)
[2023-02-23] MEDS ORDERED: Olanzapine GT (10:26)
== END 2023-02-23 16:15 | DRG 542 ==
LOC: ER 17:36 → MED 20:34
PROVIDERS: ADMIT Nurse Practitioner Acute Care; ATTEND Nurse Practitioner Acute Care
PROC: BW1CYZZ Fluoroscopy of Lower Extremity using Other Contrast (ICD-10-PCS; principal; 2023-02-22)
DX: M80.052A Age-related osteoporosis with current pathological fracture, left femur, initial encounter for fracture (principal); L89.154 Pressure ulcer of sacral region, stage 4; D68.69 Other thrombophilia; E44.0 Moderate protein-calorie malnutrition; F03.93 Unspecified dementia, unspecified severity, with mood disturbance; W19.XXXA Unspecified fall, initial encounter; Y93.9 Activity, unspecified; Y92.129 Unspecified place in nursing home as the place of occurrence of the external cause; K21.9 Gastro-esophageal reflux disease without esophagitis; F03.90 Unspecified dementia, unspecified severity, without behavioral disturbance, psychotic disturbance, mood disturbance, and anxiety; I25.10 Atherosclerotic heart disease of native coronary artery without angina pectoris; Z74.09 Other reduced mobility; M19.90 Unspecified osteoarthritis, unspecified site; Z68.21 Body mass index [BMI] 21.0-21.9, adult; R13.10 Dysphagia, unspecified; Z91.81 History of falling; Z93.1 Gastrostomy status; F32.9 Major depressive disorder, single episode, unspecified; Z20.822 Contact with and (suspected) exposure to COVID-19; M24.552 Contracture, left hip; I10 Essential (primary) hypertension; M24.551 Contracture, right hip; M24.561 Contracture, right knee; M24.562 Contracture, left knee; Z53.9 Procedure and treatment not carried out, unspecified reason; G62.9 Polyneuropathy, unspecified
CPT/HCPCS: 36415; 71045-TC; 72192-TC; 73502; 73552; 80048-TC; 80053-TC; 83735-TC; 84100-TC; 85025-TC; 85610-TC; 85730-TC; 86850-TC; 87081-TC; 93307-TC; 97110-TC; A4223; A6253; G0378; J0330; J0690; J2270; J2704; J3010; J3370; J3480; J3490; J7030; J7060